=== PATIENT | female | born 1985 | race African-American/Black ===

== ENCOUNTER 2016-08-24 13:10 | Emergency (ER) | payer OTHER ==
[2016-08-24 13:35] VITALS: BP 120/73
[2016-08-24] MEDS ORDERED: NS 0.9% 1000 ML* 1,000 ML IV SCH (14:00)
--- NOTE | 2016-08-24 14:25 | UC ---
Abdominal Pain Female HPI - HPI Summary HPI Summary: ABOUT 10 DAYS OF NAUSEA AND VOMITING. FEELS DEHYDRATED. IS ABOUT 7 WEEKS BY DATES. LOG MARKER GAVE HER RX FOR DICLEGIS QHS BUT COULD NOT SEE HER TODAY AND ADVISED SHE COME HERE. IS VOMITING AFTER ALMOST EVERY ATTEMPT AT ORAL INTAKE. - History of Current Complaint Chief Complaint: UC Stated Complaint: VOMITTING AND Time Seen by Provider: 08/24/16 13:30 Hx Obtained From: Patient Hx Last Menstrual Period: 07/03/16 Onset/Duration: Gradual Onset, Lasting Days, Still Present Timing: Intermittent Episodes Lasting: Severity Initially: Moderate Severity Currently: Moderate Pain Intensity: 0 Pain Scale Used: 0-10 Numeric Aggravating Factor(s): Food Alleviating Factor(s): Nothing Associated Signs and Symptoms: Positive: Nausea, Vomiting Allergies/Adverse Reactions: Allergies Allergy/AdvReac Type Severity Reaction Status Date / Time No Known Allergies Allergy Verified 08/24/16 13:26 Home Medications: Home Medications Doxylamine/Pyridoxine(NF) [Diclegis (NF)] 20 mg PO BEDTIME 08/24/16 [History Confirmed 08/24/16] PMH/Surg Hx/FS Hx/Imm Hx Previously Healthy: Yes Endocrine History Of: Denies: Diabetes, Thyroid Disease Cardiovascular History Of: Denies: Cardiac Disorders, Hypertension Respiratory History Of: Denies: COPD, Asthma GI/ History Of: Denies: Ulcer Neurological History Of: Reports: Migraine - Surgical History Surgical History: Yes Surgery Procedure, Year, and Place: left ovary removed 1987 - Family History Known Family History: Positive: Hypertension - Social History Alcohol Use: None Substance Use Type: None Smoking Status (MU): Never Smoked Tobacco - Immunization History Most Recent Influenza Vaccination: fall 2015 Most Recent Tetanus Shot: unk Most Recent Pneumonia Vaccination: never Review of Systems Constitutional: Negative Respiratory: Negative Cardiovascular: Negative Gastrointestinal: Vomiting, Other - NAUSEA All Other Systems Reviewed And Are Negative: Yes Physical Exam Triage Information Reviewed: Yes Appearance: Well-Appearing, No Pain Distress, Well-Nourished Vital Signs: Initial Vital Signs Temp 99.8 F 08/24/16 13:28 Pulse 74 08/24/16 13:28 Resp 16 08/24/16 13:28 BP 120/73 08/24/16 13:28 Pulse Ox 99 08/24/16 13:28 Vital Signs Reviewed: Yes Eyes: Positive: Conjunctiva Clear ENT: Positive: Hearing grossly normal Neck: Positive: Supple Respiratory Exam: Normal Cardiovascular Exam: Normal Abdomen Description: Positive: Nontender, Soft. Negative: CVA Tenderness (R), CVA Tenderness (L), Distended, Guarding Bowel Sounds: Positive: Present Musculoskeletal: Positive: No Edema Neurological: Positive: Alert Psychological: Positive: Age Appropriate Behavior Skin: Negative: rashes Abd Pain Female Course/Dx - Course Course Of Treatment: 1 L NS STARTED. CARE TRANSFERRED TO DR. PREM BRUSH AT 2: 45PM - Differential Dx/Diagnosis Provider Diagnoses: NAUSEA AND VOMITING IN 1ST TRIMESTER Discharge - Discharge Plan Condition: Stable Disposition: OTHER Discharge Disposition Comment: TRANSFER CARE TO DR. PREM BRUSH Referrals: Dolores Gu MD [Primary Care Provider] -
--- NOTE | 2016-09-03 15:46 | UC ---
I, Daisy Nuñez, scribed for Vonda Rivera MD on 08/24/16 at 1536 . Progress - Progress Note Progress Note: Sign out from Dr. Mao: Pt is 7 weeks by date. C/c vomiting. OBGYN prescribed Diclegis for this evening. Pt spoke to OBGYN, who referred her to E. Will send urine for culture, gave pt fluids. If she feels OK after fluids, OK to discharge. 1528: Re-eval #1 Checking on pt post fluids. Pt states feeling a little better, wants to try eating. No new complaints. Vitals looked OK. Will check her blood sugar, then D/C. Follow up with OBGYN on 09/13/2016. Pt voiced understanding. The documentation as recorded by the shakiraibJoaquin watkins SooYoung accurately reflects the service I personally performed and the decisions made by me, Vonda Rivera MD.
== END 2016-08-24 16:59 ==
LOC: UCEAST 13:10
DX: O26.891 Other specified pregnancy related conditions, first trimester (principal); Z3A.01 Less than 8 weeks gestation of pregnancy; R11.2 Nausea with vomiting, unspecified
CPT/HCPCS: 81002; 81025; 87086; 96360; 99211; G0463

== ENCOUNTER 2016-09-04 18:25 | Emergency (ER) | payer OTHER ==
[2016-09-04] MEDS ORDERED: Ondansetron INJ* 2 MG/ML VIAL IV ONE (20:03)
[2016-09-04] MEDS ORDERED: NS 0.9% 1000 ML* 1,000 ML IV ONE (20:03)
[2016-09-04 20:52] LABS: Hematocrit 41 % (35-47); Mean Corpuscular HGB Conc 34 g/dl (31-36); Mean Corpuscular Hemoglobin 27 pg (27-31); Mean Corpuscular Volume 77 fL (80-97); Mean Platelet Volume 8 um3 (7.4-10.4); Red Blood Count 5.26 10^6/ul (4.0-5.4); Red Cell Distribution Width 17 % (10.5-15); White Blood Count 15.5 10^3/ul (3.5-10.8)
--- NOTE | 2016-09-04 21:21 | RAD ---
Indication: status post right oophorectomy and threatened . Real-time sonography of the was performed. There is a single intrauterine gestation noted. movement is noted.. heart activity measures 183 bpm. The mean crown-rump length is 1.5 cm corresponding to gestational age of 8 weeks 0 days. The mean gestational sac size is 3.5 cm corresponding to gestational age of 8 weeks 4 days. The estimated date of delivery is April 12, 2017. The left ovary measures 5.3 x 4.0 x 4.5 cm with 3.4 cm cyst in the left ovary. IMPRESSION: There is a single intrauterine gestation with a gestational age of 8 weeks 4 days. Estimated date of delivery is April 12, 2017. heart activity is noted. Patient is status post right oophorectomy. Left ovary demonstrates a cyst measuring 3.4 cm.
[2016-09-04 21:35] LABS: Calcium 9.5 mg/dL (8.6-10.3); EGFR African American 171.7 (>60); EGFR Non-African American 133.5 (>60); Globulin 2.9 g/dL (2-4); Potassium 3.7 mmol/L (3.5-5.0); Total Bilirubin 0.8 mg/dL (0.2-1.0); Total Protein 6.9 g/dL (6.4-8.9)
--- NOTE | 2016-09-04 22:04 | RAD ---
Indication: Leg edema. Duplex Doppler sonography of the deep venous system of the left lower extremity deep venous system was performed. Bilaterally the common femoral veins appear patent and compressible. Left proximal greater saphenous vein, proximal deep femoral vein, femoral vein, popliteal vein, posterior tibial veins and peroneal veins appear patent and compressible. Venous stasis is noted throughout the deep venous system. IMPRESSION: NO EVIDENCE OF DEEP VENOUS THROMBOSIS IS IDENTIFIED.
[2016-09-04] MEDS ORDERED: Acetaminophen TAB* 325 MG PO ONE (22:05)
--- NOTE | 2016-09-04 22:16 | RAD ---
Indication: Right lower quadrant pain. Graded compression sonography of the right lower quadrant was performed. There is no evidence of a abnormal or normal appendix identified. IMPRESSION: Appendix not visualized.
[2016-09-04 22:57] LABS: Urine Bacteria Absent (Absent); Urine Bilirubin Negative (Negative); Urine Glucose Negative (Negative); Urine Nitrite Negative (Negative)
[2016-09-04] MEDS ORDERED: Nitrofurantoin Macrocrystals* 50 MG CAP PO ONE (23:11)
[2016-09-05 00:31] VITALS: BP 118/70
--- NOTE | 2016-09-05 00:44 | ED ---
jyoti Castaneda Timothy, scribed for Earle Caceres on 09/04/16 at 2003 . Abdominal Pain/Female - HPI Summary HPI Summary: Marya Akers is a 31 yo female presenting to [facility] with 8/10 RLQ abd pain and mid abd pain for the past 2.5 weeks. She also c/o 1x vomiting, but denies any vaginal bleeding. She is 8 weeks . She states her entire left leg is in pain and is feeling numb. She saw a chiropractor earlier today for the leg pain, but the numbness is recent as of the past hour. Her MHx includes right oophorectomy in infancy due to the possibility of rupture. She had a miscarriage 08/2015. Her LNMP was 07/03/16, but she states she has not been normal since her daughter 3 years ago. - History of Current Complaint Chief Complaint: EDAbdPain Stated Complaint: 9 WKS PREG/ABD PAIN/LOWER BACK PAIN Time Seen by Provider: 09/04/16 19:57 Hx Obtained From: Patient Hx Last Menstrual Period: 07/03/16 Onset/Duration: Gradual Onset, Lasting Weeks, Still Present Timing: Constant Severity Initially: Moderate Severity Currently: Moderate Pain Intensity: 8 Pain Scale Used: 0-10 Numeric Location: Discrete At: RLQ Character: Cramping Aggravating Factor(s): Nothing Allergies/Adverse Reactions: Allergies Allergy/AdvReac Type Severity Reaction Status Date / Time No Known Allergies Allergy Verified 09/04/16 18:36 PMH/Surg Hx/FS Hx/Imm Hx Endocrine/Hematology History: Denies: Hx Diabetes, Hx Thyroid Disease Cardiovascular History: Denies: Hx Hypertension Respiratory History: Denies: Hx Asthma, Hx Chronic Obstructive Pulmonary Disease (COPD) GI History: Denies: Hx Ulcer Neurological History: Reports: Hx Migraine Denies: Other Neuro Impairments/Disorders - Surgical History Surgery Procedure, Year, and Place: left ovary removed 1987 Hx Anesthesia Reactions: No Infectious Disease History: No Infectious Disease History: Denies: Hx Clostridium Difficile, Hx Hepatitis, Hx Human Immunodeficiency Virus (HIV), Hx of Known/Suspected MRSA, Hx Shingles, Hx Tuberculosis, Hx Known/ Suspected VRE, Hx Known/Suspected VRSA, History Other Infectious Disease, Traveled Outside the [place] in Last 30 Days - Family History Known Family History: Positive: Hypertension, Other - CA - Social History Alcohol Use: None Hx Substance Use: No Substance Use Type: Reports: None Smoking Status (MU): Never Smoked Tobacco Review of Systems Constitutional: Negative Eyes: Negative ENT: Negative Cardiovascular: Negative Respiratory: Negative Positive: Abdominal Pain, Vomiting, Nausea Genitourinary: Negative Musculoskeletal: Other - left leg pain Positive: Numbness - left leg numbness Psychological: Normal All Other Systems Reviewed And Are Negative: Yes Physical Exam Triage Information Reviewed: Yes Vital Signs On Initial Exam: Initial Vitals Temp Pulse Resp BP Pulse Ox 99.4 F 111 20 118/76 99 09/04/16 18:36 09/04/16 18:36 09/04/16 18:36 09/04/16 18:36 09/04/16 18:36 Vital Signs Reviewed: Yes Appearance: Positive: Well-Appearing, No Pain Distress Skin: Positive: Warm, Skin Color Reflects Adequate Perfusion, Dry Head/Face: Positive: Normal Head/Face Inspection Eyes: Positive: EOMI, YENNIFER ENT: Positive: Normal ENT inspection Neck: Positive: Supple, Nontender Respiratory/Lung Sounds: Positive: Clear to Auscultation, Breath Sounds Present Cardiovascular: Positive: RRR, Pulses are Symmetrical in both Upper and Lower Extremities Abdomen Description: Positive: Soft. Negative: Nontender - RLQ tenderness Bowel Sounds: Positive: Present Musculoskeletal: Positive: Strength/ROM Intact, Pain @ - left buttock area Neurological: Positive: Normal, Sensory/Motor Intact, Alert, Oriented to Person Place, Time Psychiatric: Positive: Normal Diagnostics - Vital Signs Vital Signs Temp Pulse Resp BP Pulse Ox 09/04/16 19:25 97.8 F 91 16 121/66 99 09/04/16 18:36 99.4 F 111 20 118/76 99 - Laboratory Result Diagrams: 09/04/16 20:35 09/04/16 20:35 Lab Statement: Any lab studies that have been ordered have been reviewed, and results considered in the medical decision making process. - Radiology Venous doppler Xray Interpretation: No Acute Changes - IMPRESSION: NO EVIDENCE OF DEEP VENOUS THROMBOSIS IS IDENTIFIED. Radiology Interpretation Completed By: Radiologist US abdomen Xray Interpretation: No Acute Changes - IMPRESSION: Appendix not visualized. Radiology Interpretation Completed By: Radiologist - Ultrasound No standard instances Ultrasound Interpretation: Positive (See Comments) - IMPRESSION: There is a single intrauterine gestation with a gestational age of 8 weeks 4 days. Estimated date of delivery is April 12, 2017. heart activity is noted. Patient is status post right oophorectomy. Left ovary demonstrates a cyst measuring 3.4 cm. Ultrasound Interpretation Completed By: Radiologist - Gestational US Re-Evaluation - Re-Evaluation First Eval Re-Evaluation Time: 23:07 Change: Improved Comment: Pt was informed of results of lab work and imaging studies. She is no longer tenderness in the RLQ. She is agreeable to being discharged. Abdominal Pain Fem Course/Dx - Course Course Of Treatment: Marya Akers is a 31 yo female presenting to [facility] with RLQ abd pain and vomiting for the past 3 weeks. After negative imaging results and review of her lab work, she will be discharged home with UTI and appropriate instructions. - Diagnoses Provider Diagnoses: UTI (urinary tract infection), IUP (intrauterine ), incidental, Left leg pain - Provider Notifications Discussed Care Of Patient With: 2321 - Dr. Simmons ([facility]) - Discussed Pt condition, recommends [facility] appt for follow up Discharge - Discharge Plan Condition: Stable Disposition: HOME Patient Education Materials: Urinary Tract Infection in Women (ED), Sciatica ( ED) Forms: *Work Release Referrals: Ferdinand Simmons MD [Medical Doctor] - 2 Days Additional Instructions: Please follow up with your [facility] physician regarding your visit to the emergency department. Dr. Simmons recommends that you call the [facility] office tomorrow morning and tell them you were seen in the ED today, so that they can get you in for an appointment sooner. Please return to the emergency department with any new or recurring symptoms. The documentation as recorded by the jyoti kang Timothy accurately reflects the service I personally performed and the decisions made by me, Earle Caceres.
== END 2016-09-05 00:30 | disposition home or self-care (01) ==
LOC: ED 18:25
DX: O26.891 Other specified pregnancy related conditions, first trimester (principal); R10.31 Right lower quadrant pain; N39.0 Urinary tract infection, site not specified; Z3A.08 8 weeks gestation of pregnancy
CPT/HCPCS: 36415; 76705; 76801; 80053; 81003; 81015; 83690; 84702; 85025; 86850; 86900; 86901; 87086; 96374; 99284; A9270-GY; J2405

== ENCOUNTER 2016-09-06 13:22 | Emergency (ER) | payer OTHER ==
[2016-09-06 13:59] VITALS: BP 113/56
--- NOTE | 2016-09-06 15:14 | RAD ---
INDICATION: LEFT leg pain and edema for 2 days with progression. COMPARISON: September 04, 2016 LEFT lower extremity venous ultrasound demonstrating venous stasis. TECHNIQUE: Christine scale, color Doppler, and spectral analysis of the deep veins of the LEFT lower extremity. Vessel compression, phasicity, and augmentation assessed. REPORT: There is gross occlusive DVT at the LEFT common iliac vein, common femoral vein, saphenous femoral junction segment of the saphenous vein, profunda femoral vein. There is nonocclusive thrombosis of the proximal segment of the LEFT femoral vein. While grossly patent the mid and distal segments of the femoral vein as well as the popliteal vein and paired posterior tibial and peroneal calf veins demonstrate stasis with nonphasic venous flow. Patency of the contralateral common femoral vein documented. IMPRESSION: Extensive LEFT lower extremity DVT as described extending as far proximal as the LEFT common iliac vein.
--- NOTE | 2016-09-06 18:15 | UC ---
Ramiro Castaneda Adam, scribed for Leda Tobias DO on 09/06/16 at 1506 . Lower Extremity/Ankle HPI - HPI Summary HPI Summary: Pt is a 31 year old female presenting with pain in her left calf and upper thigh. She states that she developed pain in her back and LLE 4 days ago but her back felt better after going to the chiropractor. 3 days ago the left leg pain grew worse and she has developed swelling there as well. The pain is currently 9/10. It is worse with ambulation. She also c/o KONG and feeling alternatingly hot and cold. She reports N/V which she believes is d/t . She denies SOB, CP, cough, sore throat, and ear ache. Pt was seen at [facility] [place] [facility] ED on 09/04 (2 days ago) for the LLE pain as well as abdominal pain. Ultrasound results revealed cyst on left ovary and no DVT. Pt is 9 weeks and has an appt with Dr. Simmons ([facility]) next week. She denies any complications from her previous but she had a miscarriage 1 year ago. PMHx of migraines and left ovary removal in 1987. FMHx of DM, HTN, and CA. Negative tobacco use. - History of Current Complaint Chief Complaint: UCLowerExtremity Stated Complaint: LEG PAIN Time Seen by Provider: 09/06/16 14:50 Hx Obtained From: Patient Hx Last Menstrual Period: 07/03/16 ?: Yes Onset/Duration: Gradual Onset, Lasting Days, Still Present Severity Initially: Mild Severity Currently: Moderate Pain Intensity: 9 Aggravating Factor(s): Ambulation Alleviating Factor(s): Nothing Able to Bear Weight: Yes - Allergies/Home Medications Allergies/Adverse Reactions: Allergies Allergy/AdvReac Type Severity Reaction Status Date / Time No Known Allergies Allergy Verified 09/06/16 13:48 Home Medications: Home Medications Acetaminophen TAB* [Tylenol TAB*] 1,000 mg PRN 09/06/16 [History] PMH/Surg Hx/FS Hx/Imm Hx Previously Healthy: Yes Endocrine History Of: Denies: Diabetes, Thyroid Disease Cardiovascular History Of: Denies: Cardiac Disorders, Hypertension Respiratory History Of: Denies: COPD, Asthma GI/ History Of: Denies: Ulcer Neurological History Of: Reports: Migraine - Surgical History Surgical History: Yes Surgery Procedure, Year, and Place: left ovary removed 1987 - Family History Known Family History: Positive: Hypertension, Diabetes, Other - CA - Social History Occupation: Employed Full-time Lives: With Family - Domestic partner male Alcohol Use: None Substance Use Type: None Smoking Status (MU): Never Smoked Tobacco - Immunization History Most Recent Influenza Vaccination: fall 2015 Most Recent Tetanus Shot: unk Most Recent Pneumonia Vaccination: never Review of Systems Constitutional: Negative Musculoskeletal: Calf Tenderness, Edema - LLE, Myalgia - LLE All Other Systems Reviewed And Are Negative: Yes Physical Exam Triage Information Reviewed: Yes Appearance: Well-Appearing, No Pain Distress, Well-Nourished Vital Signs: Initial Vital Signs Temp 98.2 F 09/06/16 13:50 Pulse 105 09/06/16 13:50 Resp 18 09/06/16 13:50 BP 113/56 09/06/16 13:50 Pulse Ox 100 09/06/16 13:50 Eyes: Positive: Conjunctiva Clear. Negative: Discharge ENT: Positive: Hearing grossly normal. Negative: Muffled/hoarse voice Neck exam: Normal Neck: Positive: Supple Respiratory: Positive: Lungs clear, Normal breath sounds, No respiratory distress, No accessory muscle use Cardiovascular: Positive: RRR, No Murmur Musculoskeletal: Positive: Edema @ - entire left le Neurological: Positive: Alert, Muscle Tone Normal Psychological Exam: Normal Psychological: Positive: Age Appropriate Behavior Skin Exam: Normal Skin: Positive: Other - Warm, dry, normal color except for left LE - diffusely warm to touch with red discoloration Diagnostics - Laboratory Diagnostic Studies Completed/Ordered: VENOUS DOPPLER STUDY - IMPRESSION: Extensive LEFT lower extremity DVT as described extending as far proximal as. the LEFT common iliac vein. Lower Extremity Course/Dx - Course Course Of Treatment: Patient found to have extensive DVT extending into the proximal left common iliac artery. She is also found to be tachycardic. No evidence of DVT 2 days ago. Given the patient's tachycardia, further evaluation to rule out PE seems warranted. - Differential Dx/Diagnosis Differential Diagnosis/HQI/PQRI: Cellulitis, DVT, Phlebitis, Sprain, Other - PE Provider Diagnoses: DVT, Discharge - Discharge Plan Condition: Stable Disposition: [facility] Referrals: Kym Sullivan NP [Primary Care Provider] - The documentation as recorded by the scribeRamiro Adam accurately reflects the service I personally performed and the decisions made by me, Leda Tobias DO.
== END 2016-09-06 15:52 | disposition short-term general hospital (02) ==
LOC: UCEAST 13:22
DX: O22.31 Deep phlebothrombosis in pregnancy, first trimester (principal); I82.422 Acute embolism and thrombosis of left iliac vein; Z3A.09 9 weeks gestation of pregnancy
CPT/HCPCS: 99213; G0463

== ENCOUNTER 2016-09-06 16:09 | Emergency (ER) | payer OTHER ==
--- NOTE | 2016-09-06 16:37 | CONSULT ---
Consultation - Reason for Consultation Reason for Consultation: DVT in Ordering Provider: Hua Alvarenga Chief Complaint: left leg pain History of Present Illness: 31 yo F at 8 weeks gestation presenting with an extensive left lower extremity DVT. Reema was walking in [employer] on Saturday and noticed pain in her left leg. On Saturday she developed pain and swelling and on Saturday came to the ER. She had a left LE venous doppler which showed stasis but no clot and was diagnosed with a muscle strain. US at that time confirmed an intrauterine at 8 weeks. The pain and swelling continued and so she went to urgent care today. repeat doppler showed an extensive clot in her left leg and she was brought in to the ER by ambulance. She denies any chest pain or SOB. She has had one very early miscarriage. She has no family history of blood clots. She does not smoke and is not on OCPs. She is not obese and had no inciting traumatic events nor any long car rides. Allergies/Medications Medication: none Allergies/Adverse Reactions: Allergies Allergy/AdvReac Type Severity Reaction Status Date / Time No Known Allergies Allergy Verified 09/06/16 13:48 History - Past Medical History Other History: right oophorectomy at for cystic lesions-benign - Family History Other Family History: mother pancreatic cancer. father prostate CA - Social History Hx Alcohol Use: No Hx Tobacco Use: No Marital Status: Life Partner Review of Systems - Review of Systems Constitutional Symptoms: Positive: Weight Gain - Dermatology: Positive: Normal HEENT: Positive: Normal Eyes: Positive: Normal Thyroid: Positive: Normal Pulmonary: Positive: Normal Cardiology: Positive: Normal Gastroenterology: Positive: Nausea, Anorexia Genital - Urinary: Positive: Normal Musculoskeletal: Positive: Other - left leg pain and numbness Endocrinology: Positive: Normal Neurology: Positive: Normal Psychiatry: Positive: Normal Physical Exam - Physical Exam Physical Examination: Vital Signs Temp Pulse Resp BP Pulse Ox 98.7 F 103 18 121/68 97 09/06/16 16:22 09/06/16 16:22 09/06/16 16:22 09/06/16 16:22 09/06/16 16:22 sitting in bed clearly uncomfortable perr eomi op moist CTA bl s1 s2 nl soft nt +bs mild swelling, erythema and tenderness of left leg A+O x 3, nonfocal neurological exam Results - Radiology Radiology Results: left venous doppler: personally reviewed with Dr. Richards. Extensive clot clearly not present on exam 2 days ago where stasis was present Assessment and Plan Impression: 31 yo F at 8 weeks gestation with a spontaneous left lower extremity DVT. We discussed this diagnosis at length. At this point she will require anticoagulation through out her . We discussed that the only safe option is heparin or lovenox. At this point I would start with lovenox 1.5 mg/ kg/day. We can discuss switching to BID heparin at 36 weeks gestation. She will also require anticoagulation for 6 weeks, with lovenox if breast feeding or xeralto if not. In terms of a hypercoag work up, it does make sense to check factor V leiden and prothrombin gene mutation at her next office visit and to complete the work up when she is no longer nor taking anticoagulation. This will not effect her management at present but will help to inform future risk and familial risk. I have also advised that she wear a thigh high compression stocking if possible to 30-40 mmHg if she can tolerate during her . I will see her in my office on September 20 at 1 pm.
[2016-09-06] MEDS ORDERED: Enoxaparin(*) 100 MG/ML SYR SUBCUT ONE (16:51)
[2016-09-06] MEDS ORDERED: oxyCODONE/Acetamin 5/325 MG* TAB PO ONE (16:51)
--- NOTE | 2016-09-06 17:23 | ED ---
Harjeet Castaneda Billy, scribed for Hua Alvarenga MD on 09/06/16 at 1651 . Lower Extremity - HPI Summary HPI Summary: Patient is a 31 year-old female coming to [facility] presenting with constant LLE pain, severity 9/10. Patient states there is a known diagnosis of LLE DVT. Denies any CP or SOB. Denies any recent travel, but states that she will sit at her desk for approximately 4 hours a day. She was seen in the ED several days ago, where a LLE US was negative for DVT, but a repeat US today at [facility] was read as positive. Patient is also 9 weeks . - History of Current Complaint Chief Complaint: EDExtremityLower Stated Complaint: RULE OUT DVT Time Seen by Provider: 09/06/16 16:29 Hx Obtained From: Patient Hx Last Menstrual Period: 07/03/16 Onset of Pain: Days Severity Initially: Moderate Severity Currently: Moderate Pain Intensity: 9 Pain Scale Used: 0-10 Numeric Timing: Constant Location: Is Discrete @ - LLE Associated Signs And Symptoms: Positive: Swelling Aggravating Factor(s): Nothing Alleviating Factor(s): Nothing - Allergies/Home Medications Allergies/Adverse Reactions: Allergies Allergy/AdvReac Type Severity Reaction Status Date / Time No Known Allergies Allergy Verified 09/06/16 13:48 PMH/Surg Hx/FS Hx/Imm Hx Endocrine/Hematology History: Denies: Hx Diabetes, Hx Thyroid Disease Cardiovascular History: Denies: Hx Hypertension Respiratory History: Denies: Hx Asthma, Hx Chronic Obstructive Pulmonary Disease (COPD) GI History: Denies: Hx Ulcer Neurological History: Reports: Hx Migraine Denies: Other Neuro Impairments/Disorders - Surgical History Surgery Procedure, Year, and Place: left ovary removed 1987 Hx Anesthesia Reactions: No Infectious Disease History: No Infectious Disease History: Denies: Hx Clostridium Difficile, Hx Hepatitis, Hx Human Immunodeficiency Virus (HIV), Hx of Known/Suspected MRSA, Hx Shingles, Hx Tuberculosis, Hx Known/ Suspected VRE, Hx Known/Suspected VRSA, History Other Infectious Disease, Traveled Outside the [place] in Last 30 Days - Family History Known Family History: Positive: Hypertension, Other - [place] - Social History Alcohol Use: None Hx Substance Use: No Substance Use Type: Reports: None Smoking Status (MU): Never Smoked Tobacco Review of Systems Negative: Chest Pain Negative: Shortness Of Breath Positive: Myalgia - LLE, Edema - LLE All Other Systems Reviewed And Are Negative: Yes Physical Exam Triage Information Reviewed: Yes Vital Signs On Initial Exam: Initial Vitals Temp Pulse Resp BP Pulse Ox 98.7 F 103 18 121/68 97 09/06/16 16:22 09/06/16 16:22 09/06/16 16:22 09/06/16 16:22 09/06/16 16:22 Vital Signs Reviewed: Yes Appearance: Positive: Well-Appearing, No Pain Distress Skin: Positive: Warm, Skin Color Reflects Adequate Perfusion, Dry Head/Face: Positive: Normal Head/Face Inspection Eyes: Positive: EOMI, YENNIFER ENT: Positive: Normal ENT inspection Neck: Positive: Supple, Nontender Respiratory/Lung Sounds: Positive: Clear to Auscultation, Breath Sounds Present Cardiovascular: Positive: Tachycardia Abdomen Description: Positive: Nontender, Soft Musculoskeletal: Positive: Pain @ - LLE tenderness, Edema Left Neurological: Positive: Normal, Sensory/Motor Intact, Alert, Oriented to Person Place, Time Psychiatric: Positive: Normal, Affect/Mood Appropriate Diagnostics - Vital Signs Vital Signs Temp Pulse Resp BP Pulse Ox 09/06/16 16:22 98.7 F 103 18 121/68 97 - Laboratory Lab Statement: Any lab studies that have been ordered have been reviewed, and results considered in the medical decision making process. Lower Extremity Course/Dx - Course Assessment/Plan: DR RUTLEDGE SAW PATIENT IN ED. DISCHARE HOME STABLE. - Diagnoses Provider Diagnoses: DVT (deep vein thrombosis) in Discharge - Discharge Plan Condition: Stable Disposition: HOME Prescriptions: Enoxaparin(*) [Lovenox(*)] 100 mg SUBCUT Q24HR #14 syringe oxyCODONE/Acetamin 5/325 MG* [Percocet 5/325 TAB*] 1 tab PO Q4H PRN #20 tab MDD 6 PRN Reason: Pain Referrals: Kym Sullivan NP [Primary Care Provider] - Additional Instructions: FOLLOW UP WITH DR RUTLEDGE ON 09/20/16 AT 1PM FOR YOUR DVT. FOLLOW UP WITH YOUR OBGYN. RETURN TO THE EMERGENCY DEPARTMENT FOR ANY WORSENING OF YOUR CONDITION; CHEST PAIN, SHORTNESS OF BREATH, YOU FEEL ILL OR QUESTIONS OR CONCERNS. The documentation as recorded by the Harjeet kang Billy accurately reflects the service I personally performed and the decisions made by me, Alvarenga,Hua, MD.
[2016-09-06 17:42] VITALS: BP 120/70
== END 2016-09-06 17:40 | disposition home or self-care (01) ==
LOC: ED 16:09
DX: O22.31 Deep phlebothrombosis in pregnancy, first trimester (principal); Z3A.09 9 weeks gestation of pregnancy; M79.1 Myalgia; R60.0 Localized edema
CPT/HCPCS: 99223; 99282; A9270-GY; J1650

== ENCOUNTER 2016-09-08 09:07 | Emergency (ER) | payer OTHER ==
[2016-09-08] MEDS ORDERED: Metoclopramide TAB* 10 MG PO ONE (10:24)
[2016-09-08 10:40] LABS: Hematocrit 35 % (35-47); Mean Corpuscular HGB Conc 34 g/dl (31-36); Mean Corpuscular Hemoglobin 26 pg (27-31); Mean Corpuscular Volume 77 fL (80-97); Mean Platelet Volume 8 um3 (7.4-10.4); Red Blood Count 4.57 10^6/ul (4.0-5.4); Red Cell Distribution Width 17 % (10.5-15); White Blood Count 12.8 10^3/ul (3.5-10.8)
[2016-09-08] MEDS ORDERED: oxyCODONE/Acetamin 5/325 MG* TAB PO ONE (10:45)
[2016-09-08 10:51] LABS: Albumin 3.6 g/dL (3.2-5.2); BUN/Creatinine Ratio 15.9 (8-20); Calcium 9.2 mg/dL (8.6-10.3); EGFR African American 217.4 (>60); EGFR Non-African American 169.1 (>60); Globulin 3.3 g/dL (2-4); Potassium 3.2 mmol/L (3.5-5.0); Total Bilirubin 0.7 mg/dL (0.2-1.0); Total Protein 6.9 g/dL (6.4-8.9)
--- NOTE | 2016-09-08 11:04 | ED ---
Lower Extremity - HPI Summary HPI Summary: 31 F who is 9 weeks presents with worsening left leg pain from her DVT. She is also complaining of unchanged LLQ pain for the past week. She was seen here on and diagnosed with blood clot in left common illiac. She has been taking lovenox. She is suppose to follow up with dr amato in september. She states that the swelling of her leg has decreased but pain has increased likely due to being unable to keep percocet down due to nausea. She denies any diarrhea or constipation. She had a transvaginal u/s done and was told have left ovarian cyst which states pain has been same since diagnoses. She denies any vaginal bleeding or discharge. She had a UTI last time she was here and was placed on macrobid which she has been taking. She has no risk factors for DVT excpet for . She denies any chest pain, SOB, or palpitations to suggest PE. - History of Current Complaint Chief Complaint: EDExtremityLower Stated Complaint: 9WKS PREG/POSS BLOOD CLOT LT LEG Time Seen by Provider: 09/08/16 09:42 Hx Last Menstrual Period: 07/03/16 Pain Intensity: 10 - Allergies/Home Medications Allergies/Adverse Reactions: Allergies Allergy/AdvReac Type Severity Reaction Status Date / Time No Known Allergies Allergy Verified 09/06/16 13:48 PMH/Surg Hx/FS Hx/Imm Hx Endocrine/Hematology History: Denies: Hx Diabetes, Hx Thyroid Disease Cardiovascular History: Denies: Hx Hypertension Respiratory History: Denies: Hx Asthma, Hx Chronic Obstructive Pulmonary Disease (COPD) GI History: Denies: Hx Ulcer Neurological History: Reports: Hx Migraine Denies: Other Neuro Impairments/Disorders - Surgical History Surgery Procedure, Year, and Place: left ovary removed 1987 Hx Anesthesia Reactions: No Infectious Disease History: No Infectious Disease History: Denies: Hx Clostridium Difficile, Hx Hepatitis, Hx Human Immunodeficiency Virus (HIV), Hx of Known/Suspected MRSA, Hx Shingles, Hx Tuberculosis, Hx Known/ Suspected VRE, Hx Known/Suspected VRSA, History Other Infectious Disease, Traveled Outside the [place] in Last 30 Days - Family History Known Family History: Positive: Hypertension, Diabetes, Other - CA - Social History Alcohol Use: None Hx Substance Use: No Substance Use Type: Reports: None Hx Tobacco Use: No Smoking Status (MU): Never Smoked Tobacco Review of Systems Negative: Fever Negative: Palpitations, Chest Pain Negative: Shortness Of Breath Positive: Abdominal Pain - LLQ, Vomiting - intermittent, Nausea - intermittent. Negative: Diarrhea Negative: dysuria Positive: Myalgia - left leg pain, Edema - left leg All Other Systems Reviewed And Are Negative: Yes Physical Exam Triage Information Reviewed: Yes Vital Signs On Initial Exam: Initial Vitals Temp Pulse Resp BP Pulse Ox 98.4 F 103 20 107/64 100 09/08/16 09:10 09/08/16 09:10 09/08/16 09:10 09/08/16 09:10 09/08/16 09:10 Vital Signs Reviewed: Yes Appearance: Positive: Well-Appearing Skin: Positive: Warm, Dry Head/Face: Positive: Normal Head/Face Inspection Eyes: Positive: Normal, Conjunctiva Clear ENT: Positive: Normal ENT inspection, Pharynx normal, TMs normal Respiratory/Lung Sounds: Positive: Clear to Auscultation, Breath Sounds Present Cardiovascular: Positive: Normal, RRR Abdomen Description: Positive: Soft, Other: - mild tenderness in LLQ, no rebound tenderness Bowel Sounds: Positive: Present Musculoskeletal: Positive: Strength/ROM Intact - of left lower extremitiy, Edema Left - leg, Other - good pulses, capillary refill < 2 secs, - Marla Coma Scale Coma Scale Total: 15 Diagnostics - Vital Signs Vital Signs Temp Pulse Resp BP Pulse Ox 09/08/16 09:10 98.4 F 103 20 107/64 100 - Laboratory Lab Results: Lab Results 09/08/16 09/08/16 Range/Units 10:18 10:18 WBC 12.8 H (3.5-10.8) 10^3/ul RBC 4.57 (4.0-5.4) 10^6/ul Hgb 12.0 (12.0-16.0) g/dl Hct 35 (35-47) % MCV 77 L (80-97) fL MCH 26 L (27-31) pg MCHC 34 (31-36) g/dl RDW 17 H (10.5-15) % Plt Count 297 (150-450) 10^3/ul MPV 8 (7.4-10.4) um3 Neut % (Auto) 76.7 (38-83) % Lymph % (Auto) 13.5 L (25-47) % [place] % (Auto) 8.2 (1-9) % Eos % (Auto) 0.9 (0-6) % Baso % (Auto) 0.7 (0-2) % Absolute Neuts (auto) 9.8 H (1.5-7.7) 10^3/ul Absolute Lymphs (auto) 1.7 (1.0-4.8) 10^3/ul Absolute Monos (auto) 1.1 H (0-0.8) 10^3/ul Absolute Eos (auto) 0.1 (0-0.6) 10^3/ul Absolute Basos (auto) 0.1 (0-0.2) 10^3/ul Absolute Nucleated RBC 0.01 10^3/ul Nucleated RBC % 0.1 Sodium 134 (133-145) mmol/L Potassium 3.2 L (3.5-5.0) mmol/L Chloride 101 (101-111) mmol/L Carbon Dioxide 23 (22-32) mmol/L Anion Gap 10 (2-11) mmol/L BUN 7 (6-24) mg/dL Creatinine 0.44 L (0.51-0.95) mg/dL Est GFR ( Amer) 217.4 (>60) Est GFR (Non-Af Amer) 169.1 (>60) BUN/Creatinine Ratio 15.9 (8-20) Glucose 89 (70-100) mg/dL Calcium 9.2 (8.6-10.3) mg/dL Total Bilirubin 0.70 (0.2-1.0) mg/dL AST 17 (13-39) U/L ALT 9 (7-52) U/L Alkaline Phosphatase 58 (34-104) U/L Total Protein 6.9 (6.4-8.9) g/dL Albumin 3.6 (3.2-5.2) g/dL Globulin 3.3 (2-4) g/dL Albumin/Globulin Ratio 1.1 (1-3) Beta HCG, Quant Pending Result Diagrams: 09/08/16 10:18 09/08/16 10:18 Lab Statement: Any lab studies that have been ordered have been reviewed, and results considered in the medical decision making process. Lower Extremity Course/Dx - Course Course Of Treatment: 31 F presents with left leg pain for a week, diagnosed with DVT and started on lonvenox, pain increased but swelling decreased, u/s last week showed DVT at left common iliac so do not need to repeat u/s as only can do to lungs and not having any symptoms of PE at this time, abdominal pain remains unchanged since last u/s and showed cyst so likely cyst cause, offered transvaginal u/s and patient declined, labs: wbc less than last time, gave oral pain medication with reglan which patient tolerated, told patient if develops SOB or chest pain to return immediately, will have continue pain medication at home and added reglan to use as needed for nausea related to percocet, have continue antibiotic for UTI, have continue blood thinner and keep appointment with obgyn and dr amato, patient understands and agrees with plan - Diagnoses Differential Diagnosis/HQI/PQRI: Positive: DVT, Infection, Other - ovarian cyst , PE Provider Diagnoses: Left leg DVT, , Left ovarian cyst Discharge - Discharge Plan Condition: Stable Disposition: HOME Prescriptions: Metoclopramide TAB* [Reglan TAB*] 10 mg PO Q6H PRN #15 tab PRN Reason: Nausea Referrals: Kym Sullivan NP [Primary Care Provider] - Additional Instructions: Follow up with obgymeg and dr amato as scheduled Take Reglan before percocet as needed for nausea and pain Take Tylenol for pain every 6 hours, use narcotic for break through pain, increase fiber intake Return to ED immediately if develop palpitations, chest pain, or shortness of breath or any new or worsening symptoms
[2016-09-08 11:06] LABS: Urine Bacteria Absent (Absent); Urine Bilirubin 1+ (Negative); Urine Glucose Negative (Negative); Urine Nitrite Negative (Negative)
[2016-09-08 11:45] VITALS: BP 102/80
== END 2016-09-08 11:43 | disposition home or self-care (01) ==
LOC: ED 09:07
DX: O22.31 Deep phlebothrombosis in pregnancy, first trimester (principal); O34.81 Maternal care for other abnormalities of pelvic organs, first trimester; N83.202 Unspecified ovarian cyst, left side; R10.32 Left lower quadrant pain; R11.2 Nausea with vomiting, unspecified; I82.4Z2 Acute embolism and thrombosis of unspecified deep veins of left distal lower extremity; Z3A.09 9 weeks gestation of pregnancy
CPT/HCPCS: 36415; 80053; 81003; 81015; 84702; 85025; 85610; 85730; 87086; 99283; A9270-GY

== ENCOUNTER 2017-01-10 14:03 | Emergency (ER) | payer OTHER ==
[2017-01-10 14:08] VITALS: BP 126/68
[2017-01-10] MEDS ORDERED: Famotidine IV* 10 MG/ML 2 ML (20 mg) IV ONE (14:37)
[2017-01-10] MEDS ORDERED: diPHENhydraMINE IV* 50 MG/ML 1 ml VIAL (BENADRYL) IV ONE (14:37)
--- NOTE | 2017-01-10 15:56 | ED ---
Nai Castaneda Salem, scribed for Hua Alvarenga MD on 01/10/17 at 1425 . Allergic Reaction/Systemic - HPI Summary HPI Summary: Patient is a 31 y/o F who presents to the ED with an allergic reaction for the past 45 minutes. She states that she went to a taco truck and had a new shrimp taco with a spicy sauce. She denies any allergies to shrimp and states that she s had it many times. She reports hives and edema of bilateral knees and left shoulder. She denies throat tightness. Pt is 26 weeks . PMHx of blood clots. - History of Current Complaint Chief Complaint: EDAllergicReaction Time Seen by Provider: 01/10/17 14:17 Hx Obtained From: Patient, Family/[employer] Insurance Hx Last Menstrual Period: 07/03/16 Onset/Duration: Gradual Onset, Started minutes ago, Worse Since Timing: Constant Severity Initially: Moderate Severity Currently: Moderate Pain Intensity: 8 Pain Scale Used: 0-10 Numeric Location: Discrete @ - Bilat knees. Character: Swelling, Hives Aggravating Factor(s): Nothing Alleviating Factor(s): Nothing Associated Signs And Symptoms: Positive: Negative. Negative: Throat Tightening - Allergies/Home Medications Allergies/Adverse Reactions: Allergies Allergy/AdvReac Type Severity Reaction Status Date / Time No Known Allergies Allergy Verified 09/06/16 13:48 PMH/Surg Hx/FS Hx/Imm Hx Endocrine/Hematology History: Denies: Hx Diabetes, Hx Thyroid Disease Cardiovascular History: Denies: Hx Hypertension Respiratory History: Denies: Hx Asthma, Hx Chronic Obstructive Pulmonary Disease (COPD) GI History: Denies: Hx Ulcer Neurological History: Reports: Hx Migraine Denies: Other Neuro Impairments/Disorders - Surgical History Surgery Procedure, Year, and Place: left ovary removed 1987 Hx Anesthesia Reactions: No Infectious Disease History: No Infectious Disease History: Denies: Hx Clostridium Difficile, Hx Hepatitis, Hx Human Immunodeficiency Virus (HIV), Hx of Known/Suspected MRSA, Hx Shingles, Hx Tuberculosis, Hx Known/ Suspected VRE, Hx Known/Suspected VRSA, History Other Infectious Disease, Traveled Outside the [place] in Last 30 Days - Family History Known Family History: Positive: Hypertension, Diabetes, Other - CA - Social History Alcohol Use: None Hx Substance Use: No Substance Use Type: Reports: None Hx Tobacco Use: No Smoking Status (MU): Never Smoked Tobacco Review of Systems ENT: Other - No throat tightness. Positive: Edema - of bilat knees. Positive: Rash, Other - Hives of bilateral knees and left shoulder. All Other Systems Reviewed And Are Negative: Yes Physical Exam Triage Information Reviewed: Yes Vital Signs On Initial Exam: Initial Vitals Temp Pulse Resp BP Pulse Ox 97.6 F 82 18 126/88 98 01/10/17 14:04 01/10/17 14:04 01/10/17 14:04 01/10/17 14:04 01/10/17 14:04 Vital Signs Reviewed: Yes Appearance: Positive: Well-Appearing, No Pain Distress Skin: Positive: Warm, Skin Color Reflects Adequate Perfusion, Dry, Other - Hives around bilateral knees and indicates to LUE, as well. Head/Face: Positive: Normal Head/Face Inspection Eyes: Positive: EOMI, YENNIFER ENT: Positive: Other - Oral pharynx open. Neck: Positive: Supple, Nontender Respiratory/Lung Sounds: Positive: Clear to Auscultation, Breath Sounds Present , Other - No stridor. Cardiovascular: Positive: RRR Abdomen Description: Positive: Nontender, Soft, Other: - abd. Bowel Sounds: Positive: Present Musculoskeletal: Positive: Normal, Strength/ROM Intact Neurological: Positive: Normal, Sensory/Motor Intact, Alert, Oriented to Person Place, Time Psychiatric: Positive: Affect/Mood Appropriate Diagnostics - Vital Signs Vital Signs Temp Pulse Resp BP Pulse Ox 01/10/17 14:05 97.6 F 78 20 126/68 99 01/10/17 14:04 97.6 F 82 18 126/88 98 - Laboratory Lab Statement: Any lab studies that have been ordered have been reviewed, and results considered in the medical decision making process. Re-Evaluation - Re-Evaluation First Eval Re-Evaluation Time: 14:35 Comment: Discussed orders in relation to . Second Eval Re-Evaluation Time: 15:45 Comment: Discussed plan with pt and her family. Allergic Reaction Course/Dx - Course Course Of Treatment: NO CRITICAL CARE TIME. PATIENT IMPROVED IN ED WITH BENADRYL 25MG AND PEPCID 40MG IV. DISCHARGE HOME STABLE. - Diagnoses Provider Diagnoses: Allergic reaction Discharge - Discharge Plan Condition: Stable Disposition: HOME Prescriptions: Famotidine TAB* [Pepcid 20 MG TAB*] 20 mg PO BID PRN #10 tab PRN Reason: Allergy Symptoms diPHENhydraMINE PO* [Benadryl PO 25 MG TAB*] 25 mg PO Q6H PRN #15 tab PRN Reason: Allergy Symptoms Patient Education Materials: General Allergic Reaction (ED) Referrals: Kym Sullivan NP [Primary Care Provider] - Additional Instructions: FOLLOW UP WITH YOUR DOCTOR. TAKE BENADRYL 25MG EVERY 4 HOURS NEEDED. TAKE PEP RETURN TO THE EMERGENCY DEPARTMENT FOR ANY WORSENING OF YOUR CONDITION OR QUESTIONS OR CONCERNS. The documentation as recorded by the Nai kang Salem accurately reflects the service I personally performed and the decisions made by me, Hua Alvarenga MD.
== END 2017-01-10 16:12 | disposition home or self-care (01) ==
LOC: ED 14:03
DX: T78.40XA Allergy, unspecified, initial encounter (principal); R21 Rash and other nonspecific skin eruption; X58.XXXA Exposure to other specified factors, initial encounter
CPT/HCPCS: 96374; 96375; 99284; J1200

== ENCOUNTER 2017-01-10 22:15 | Emergency (ER) | payer OTHER ==
[2017-01-10 22:21] VITALS: BP 116/54
[2017-01-10] MEDS ORDERED: diPHENhydraMINE PO* 25 MG PO ONE (22:48)
[2017-01-10] MEDS ORDERED: predniSONE TAB* 20 MG PO ONE (22:48)
--- NOTE | 2017-01-10 23:51 | ED ---
Virgniia Castaneda Thomas, scribed for Luis Alfredo Mckeon MD on 01/10/17 at 2251 . Allergic Reaction/Systemic - HPI Summary HPI Summary: The pt is a 31 y/o F presenting to the ED c/o urticaria. The urticaria began earlier in the day and were localized to the leg and elbow, which prompted an ED visit earlier in the day. In the ED course of the visit earlier today, she received Benadryl IV which caused Sx to improve. She was discharged subsequently , and 3 hours subsequent to discharge the urticaria spread even after the pt took PO Benadryl. Per the pt, the urticaria is now "everywhere". She is 26 weeks . The pt called her OB, who referred her to the ED. The patient does not know what caused the allergic reaction. - History of Current Complaint Chief Complaint: EDAllergicReaction Time Seen by Provider: 01/10/17 22:42 Hx Obtained From: Patient Hx Last Menstrual Period: 07/03/16 Onset/Duration: Started hours ago, Worse Since - worse since discharge Timing: Constant Pain Intensity: 7 Pain Scale Used: 0-10 Numeric Character: Hives Aggravating Factor(s): Heat Alleviating Factor(s): Other - NEG: Benadryl - Related Hx Possible Reaction To: Unknown - Allergies/Home Medications Allergies/Adverse Reactions: Allergies Allergy/AdvReac Type Severity Reaction Status Date / Time No Known Allergies Allergy Verified 09/06/16 13:48 PMH/Surg Hx/FS Hx/Imm Hx Previously Healthy: No Endocrine/Hematology History: Denies: Hx Diabetes, Hx Thyroid Disease Cardiovascular History: Denies: Hx Hypertension Respiratory History: Denies: Hx Asthma, Hx Chronic Obstructive Pulmonary Disease (COPD) GI History: Denies: Hx Ulcer Neurological History: Reports: Hx Migraine Denies: Other Neuro Impairments/Disorders - Surgical History Surgery Procedure, Year, and Place: left ovary removed 1987 Hx Anesthesia Reactions: No Infectious Disease History: No Infectious Disease History: Denies: Hx Clostridium Difficile, Hx Hepatitis, Hx Human Immunodeficiency Virus (HIV), Hx of Known/Suspected MRSA, Hx Shingles, Hx Tuberculosis, Hx Known/ Suspected VRE, Hx Known/Suspected VRSA, History Other Infectious Disease, Traveled Outside the [place] in Last 30 Days - Family History Known Family History: Positive: Hypertension, Diabetes, Other - CA - Social History Alcohol Use: None Hx Substance Use: No Substance Use Type: Reports: None Hx Tobacco Use: No Smoking Status (MU): Never Smoked Tobacco Review of Systems Constitutional: Negative Eyes: Negative ENT: Negative Cardiovascular: Negative Respiratory: Negative Gastrointestinal: Negative Genitourinary: Negative Musculoskeletal: Negative Positive: Other - POS: urticaria, "everywhere" Neurological: Negative Psychological: Normal All Other Systems Reviewed And Are Negative: Yes Physical Exam Triage Information Reviewed: Yes Vital Signs On Initial Exam: Initial Vitals Temp Pulse Resp BP Pulse Ox 97.3 F 92 18 116/54 99 01/10/17 22:18 01/10/17 22:18 01/10/17 22:18 01/10/17 22:18 01/10/17 22:18 Vital Signs Reviewed: Yes Appearance: Positive: Well-Appearing, No Pain Distress Skin: Positive: Warm, Other - patchy urticarial rash both lower extremities Head/Face: Positive: Normal Head/Face Inspection Eyes: Positive: YENNIFER ENT: Positive: Hearing grossly normal Neck: Positive: Supple Respiratory/Lung Sounds: Positive: Clear to Auscultation, Breath Sounds Present Cardiovascular: Positive: RRR Abdomen Description: Positive: Other: - gravid Bowel Sounds: Positive: Present Musculoskeletal: Positive: Strength/ROM Intact Neurological: Positive: Alert, Oriented to Person Place, Time Diagnostics - Vital Signs Vital Signs Temp Pulse Resp BP Pulse Ox 01/10/17 22:18 97.3 F 92 18 116/54 99 - Laboratory Lab Statement: Any lab studies that have been ordered have been reviewed, and results considered in the medical decision making process. Re-Evaluation - Re-Evaluation First Eval Change: Improved Allergic Reaction Course/Dx - Diagnoses Provider Diagnoses: Allergic reaction Discharge - Discharge Plan Condition: Improved Disposition: HOME Prescriptions: predniSONE TAB* [Deltasone TAB*] 40 mg PO DAILY #8 tab Referrals: Kym Sullivan NP [Primary Care Provider] - 3 Days The documentation as recorded by the Virginia kang Thomas accurately reflects the service I personally performed and the decisions made by , Luis Alfredo Mckeon MD.
== END 2017-01-11 00:15 | disposition home or self-care (01) ==
LOC: ED 22:15
DX: L50.9 Urticaria, unspecified (principal); T78.40XA Allergy, unspecified, initial encounter; X58.XXXA Exposure to other specified factors, initial encounter
CPT/HCPCS: 99282; A9270-GY; J7512

== ENCOUNTER → 2017-02-04 07:16 | Emergency (ER) | payer OTHER ==
[~2017-02-04 07:16] MED LIST: Morphine INJ* 4 MG/ML 1 ML CARPUJECT IV ONE; NS 0.9% 1000 ML* 1,000 ML IV ONE; Ondansetron INJ* 2 MG/ML VIAL IV ONE
[2017-02-04 07:55] LABS: Hematocrit 33 % (35-47); Mean Corpuscular HGB Conc 33 g/dl (31-36); Mean Corpuscular Hemoglobin 26 pg (27-31); Mean Corpuscular Volume 77 fL (80-97); Mean Platelet Volume 8 um3 (7.4-10.4); Red Blood Count 4.31 10^6/ul (4.0-5.4); Red Cell Distribution Width 17 % (10.5-15); White Blood Count 10.9 10^3/ul (3.5-10.8)
[2017-02-04 08:13] LABS: Albumin 3.4 g/dL (3.2-5.2); BUN/Creatinine Ratio 12.7 (8-20); Calcium 8.8 mg/dL (8.6-10.3); EGFR African American 168.1 (>60); EGFR Non-African American 130.7 (>60); Globulin 3.1 g/dL (2-4); Potassium 3.7 mmol/L (3.5-5.0); Total Bilirubin 0.5 mg/dL (0.2-1.0); Total Protein 6.5 g/dL (6.4-8.9)
--- NOTE | 2017-02-04 09:33 | RAD ---
Indication: Right upper quadrant pain. Real-time sonography of the right upper quadrant was performed. The liver is normal in size. No focal lesions or intrahepatic ductal dilatation is noted. The gallbladder demonstrates no gallstones, pericholecystic fluid or wall thickening. The common duct measures 4 mm. The right kidney measures 11.0 x 5.5 x 5.0 cm with no hydronephrosis. The pancreas is suboptimally visualized. Aorta and inferior vena cava are limited in evaluation. IMPRESSION: No evidence of cholelithiasis or biliary duct dilatation is noted.
[2017-02-04 10:27] LABS: Urine Bacteria Absent (Absent); Urine Bilirubin Negative (Negative); Urine Glucose Negative (Negative); Urine Nitrite Negative (Negative)
--- NOTE | 2017-02-04 12:10 | RAD ---
Indication: Right lower quadrant pain. Real-time sonography of the right lower quadrant was performed utilizing a high frequency linear transducer. No evidence of tubular fluid-filled structure to suggest appendicitis is noted. IMPRESSION: No definite evidence of appendicitis is noted. Appendix is not visualized.
--- NOTE | 2017-02-04 12:21 | RAD ---
INDICATION: , lower, pain. COMPARISON: Comparison is made with a prior study from September 12, 2016. TECHNIQUE: Multiple real-time transabdominal images of the pelvis were obtained. FINDINGS: This exam demonstrates a single intrauterine in the cephalic presentation. cardiac activity and limb motion are noted. The heart rate was 136 beats per minute. The placenta was located posterior and is without significant focal abnormality. There is no placenta previa. The amniotic fluid volume appeared to be within normal limits. The cervix measured 3.7 cm in length. Biparietal diameter (cm): 8.0 32 weeks 3 days Head circumference (cm): 29.3 32 weeks 3 days Abdominal circumference (cm): 25.0 29 weeks 0 days Femur length (cm): 5.8 30 weeks 4 days The composite estimated gestational age was 31 weeks 1 day. The estimated gestational age by the oldest ultrasound study is 30 weeks 1 day. Therefore there has been appropriate interval growth. The estimated weight at this time is 1518 grams plus or minus 222 grams. The anatomy was not examined on this limited emergent study. In addition multiple images of the right adnexa were obtained in the region of the patient's pain. The ovary was not visualized. No free intraperitoneal fluid is seen. IMPRESSION: THERE IS A SINGLE INTRAUTERINE IN THE CEPHALIC PRESENTATION WITH A COMPOSITE ESTIMATED GESTATIONAL AGE OF 31 WEEKS 1 DAY DEMONSTRATING APPROPRIATE INTERVAL GROWTH.
[2017-02-04 12:50] LABS: C Reactive Protein 15.48 mg/L (< 5.00)
[2017-02-04 15:09] VITALS: BP 92/68
[2017-02-04 17:09] LABS: Erythrocyte Sed Rate 73 mm/Hr (0-14)
--- NOTE | 2017-02-05 10:08 | ED ---
Shanique Castaneda Auryana, scribed for Adi Gifford MD on 02/04/17 at 0735 . Abdominal Pain/Female - HPI Summary HPI Summary: 31 year old female presents to the ED with intermittent right sided abdominal pain starting at 03:00 AM. She reports that she woke this morning with what she believed may be labor contractions, took 2 doses of Tylenol, and returned to sleep. Patient woke at 06:30 with abdominal pain still present - "took her breath away". The pain does not radiate into the back. She also had nausea in route to ED and vomiting (x1 yesterday). She denies any diarrhea, blood in stool or any loss of fluids/blood. She is a patient of [facility] in [place], [place]. and is 30 weeks . Previous was full term without complications. PMHx is significant for left DVT in current ( Lovenox) and left oophorectomy (in childhood). - History of Current Complaint Chief Complaint: EDAbdPain Stated Complaint: RT SIDE ABD PAIN Time Seen by Provider: 02/04/17 07:23 Hx Obtained From: Patient Hx Last Menstrual Period: 07/03/16 ?: Yes Onset/Duration: Sudden Onset, Lasting Hours - starting at 03:00, Still Present, Worse Since - 06:30 Timing: Intermittent Episode Lasting Severity Initially: Severe Severity Currently: Severe Pain Intensity: 8 Pain Scale Used: 0-10 Numeric Location: Discrete At: RUQ Radiates: No Character: Other: - like labor contractions - "took breath away" Alleviating Factor(s): Nothing Associated Signs and Symptoms: Positive: Nausea - en route to ED, Vomiting - x1 yesterday, Other: - no loss of fluids or blood. Negative: Blood in Stool, Diarrhea Simlar Episode/Dx as:: no Allergies/Adverse Reactions: Allergies Allergy/AdvReac Type Severity Reaction Status Date / Time Shellac Allergy Rash Verified 02/04/17 07:29 PMH/Surg Hx/FS Hx/Imm Hx Endocrine/Hematology History: Denies: Hx Diabetes, Hx Thyroid Disease Cardiovascular History: Denies: Hx Hypertension Respiratory History: Denies: Hx Asthma, Hx Chronic Obstructive Pulmonary Disease (COPD) GI History: Denies: Hx Ulcer Neurological History: Reports: Hx Migraine Denies: Other Neuro Impairments/Disorders - Surgical History Surgery Procedure, Year, and Place: left ovary removed 1987 Hx Anesthesia Reactions: No Infectious Disease History: Denies: Hx Clostridium Difficile, Hx Hepatitis, Hx Human Immunodeficiency Virus (HIV), Hx of Known/Suspected MRSA, Hx Shingles, Hx Tuberculosis, Hx Known/ Suspected VRE, Hx Known/Suspected VRSA, History Other Infectious Disease, Traveled Outside the [place] in Last 30 Days - Family History Known Family History: Positive: Hypertension, Diabetes, Other - [place] - Social History Lives: With Family Alcohol Use: None Hx Substance Use: No Substance Use Type: Reports: None Hx Tobacco Use: No Smoking Status (MU): Never Smoked Tobacco Review of Systems Constitutional: Negative Negative: Fever, Chills Eyes: Negative Negative: Erythema ENT: Negative Negative: Sore Throat Cardiovascular: Negative Negative: Chest Pain Respiratory: Negative Negative: Shortness Of Breath, Cough Positive: Abdominal Pain - Right sided abdominal tenderness, Nausea, Other - no blood in stool . Negative: Vomiting, Diarrhea Genitourinary: Negative Positive: no symptoms reported. Negative: dysuria, hematuria Musculoskeletal: Negative Negative: Myalgia, Edema Skin: Negative Negative: Rash Neurological: Negative, Other - no dizziness Psychological: Normal All Other Systems Reviewed And Are Negative: Yes Physical Exam - Summary Physical Exam Summary: Constitutional: Well-developed, Well-nourished, Alert. (-) Distressed Skin: Warm, Dry HENT: Normocephalic; Atraumatic Eyes: Conjunctiva normal Neck: Musculoskeletal ROM normal neck. (-) JVD, (-) Stridor, (-) Tracheal deviation Cardio: Rhythm regular, rate normal, Heart sounds normal; Intact distal pulses; The pedal pulses are 2+ and symmetric. Radial pulses are 2+ and symmetric. (-) Murmur Pulmonary/Chest wall: Effort normal. (-) Respiratory distress, (-) Wheezes, (-) Rales Abd: Soft, RUQ Tenderness, (-) Distension, (-) Guarding, (-) Rebound Musculoskeletal: (-) Edema Lymph: (-) Cervical adenopathy Neuro: Alert, Oriented x3 Psych: Mood and affect Normal Triage Information Reviewed: Yes Vital Signs On Initial Exam: Initial Vitals Temp Pulse Resp BP Pulse Ox 97.2 F 82 18 100/43 97 02/04/17 07:17 02/04/17 07:17 02/04/17 07:17 02/04/17 07:17 02/04/17 07:17 Vital Signs Reviewed: Yes Diagnostics - Vital Signs Vital Signs Temp Pulse Resp BP Pulse Ox 02/04/17 07:17 97.2 F 82 18 100/43 97 - Laboratory Result Diagrams: 02/04/17 07:40 02/04/17 07:40 Lab Statement: Any lab studies that have been ordered have been reviewed, and results considered in the medical decision making process. - Additional Comments Diagnostic Additional Comments: US GALL BLADDER IMPRESSION: No evidence of cholelithiasis or biliary duct dilatation is noted. US PREG LIMITED IMPRESSION: THERE IS A SINGLE INTRAUTERINE IN THE CEPHALIC PRESENTATION WITH A COMPOSITE ESTIMATED GESTATIONAL AGE OF 31 WEEKS 1 DAY DEMONSTRATING APPROPRIATE INTERVAL GROWTH. US ABDOMEN LIMITED IMPRESSION: No definite evidence of appendicitis is noted. Appendix is not visualized. Re-Evaluation - Re-Evaluation First Eval Re-Evaluation Time: 08:21 - discussed labs and reassured patient that she is not carlos Comment: pain is localized to RUQ tenderness Second Eval Re-Evaluation Time: 09:41 - discussed results of gallbladder US Change: Improved Comment: pain is diminished but is still present in the RUQ and the RLQ Third Eval Re-Evaluation Time: 10:45 - patient still has pain. Change: Unchanged Fourth Eval Re-Evaluation Time: 13:59 - pain is improved Change: Improved Comment: reports chronic lower abdominal pain throughout the Fifth Eval Re-Evaluation Time: 14:56 - updated patient on plan to admit to labor and delivery - patient agrees with plan Abdominal Pain Fem Course/Dx - Course Course Of Treatment: 31 year old female presents to the ED with intermittent right sided abdominal pain starting at 03:00 AM. She reports that she woke this morning with what she believed may be labor contractions, took 2 doses of Tylenol, and returned to sleep. Patient woke at 06:30 with abdominal pain still present - "took her breath away". The pain does not radiate into the back. She also had nausea in route to ED and vomiting (x1 yesterday). She denies any diarrhea, blood in stool or any loss of fluids/blood. She is a patient of [facility] in [place], [place]. and is 30 weeks . Previous was full term without complications. PMHx is significant for left DVT in current (Lovenox) and partial oophorectomy (in childhood). In ED course, patient was given 2L of IV fluids, Zofran for nausea and morphine for pain. I discussed the patient with Dr. Mcnair who recommended admission to OB if the patient is calros. Dr. Mcnair (OB) (14:45) recommends that she be admitted to labor and delivery for further monitoring. Patient agrees with plan. Disposition discharge from ER to to labor and delivery. Gallbladder US is negative. Blood work shows WBC of 10.9, Hgb of 11.0, Hct of 33, glucose 83, lactic acid 1.3. Electrolytes and LFTs WNL. Blood type is A (+) with a negative antibody screen. UA is contaminated. US THERE IS A SINGLE INTRAUTERINE IN THE CEPHALIC PRESENTATION WITH A. COMPOSITE ESTIMATED GESTATIONAL AGE OF 31 WEEKS 1 DAY DEMONSTRATING APPROPRIATE INTERVAL. GROWTH. ABDOMINAL US - No definite evidence of appendicitis is noted. Appendix is not visualized. DDx: biliary colic, cholecystitis, pre-term labor. Dx: abdominal pain and . - Diagnoses Differential Diagnosis: Positive: Other - biliary colic, cholecystitis, pre- term labor Provider Diagnoses: Abdominal pain, Is Visit Related: Yes - possible pre-term labor - Provider Notifications Discussed Care Of Patient With: Mary Mcnair - discussed the case Time Discussed With Above Provider: 07:32 - if patient is carlos, recommends admission to OB unit Instructed by Provider To: Admit As Inpatient Discharge - Discharge Plan Condition: Stable Disposition: OTHER Discharge Disposition Comment: to labor and delivery. Patient Education Materials: Abdominal Pain in (ED), (ED) Referrals: Kym Sullivan NP [Primary Care Provider] - The documentation as recorded by the Shanique kang Auryana accurately reflects the service I personally performed and the decisions made by me, Adi Gifford MD.
== END ==
LOC: ED 07:16
DX: R10.31 Right lower quadrant pain (principal); R11.0 Nausea; Z34.90 Encounter for supervision of normal pregnancy, unspecified, unspecified trimester
CPT/HCPCS: 36415; 76705; 76815; 80053; 81003; 81015; 83605; 85027; 85652; 86140; 86850; 86900; 86901; 96374; 96375; 99282; J2270; J2405

== ENCOUNTER 2017-04-07 08:47 | Inpatient (IN) | payer OTHER ==
[2017-04-07 09:57] LABS: Hematocrit 34 % (35-47); Hemoglobin 11.4 g/dl (12.0-16.0); Mean Corpuscular HGB Conc 33 g/dl (31-36); Mean Corpuscular Hemoglobin 23 pg (27-31); Mean Platelet Volume 8 um3 (7.4-10.4); Red Blood Count 4.98 10^6/ul (4.0-5.4); Red Cell Distribution Width 19 % (10.5-15); White Blood Count 9.5 10^3/ul (3.5-10.8)
[2017-04-07 10:00] LABS: Comments Flag Yes
[2017-04-07] MEDS ORDERED: Oxytocin in LR* 20 UNITS/1,000 ML BAG IVPB SCH ×2 (10:00→17:00)
[2017-04-07 10:01] LABS: Mean Corpuscular Volume 69 fL (80-97)
[2017-04-07] MEDS ORDERED: OBEPIDURAL* 250 ML ONE (12:17)
[2017-04-07] MEDS ORDERED: EPHEDrine (Pressors)* 50 MG/ML VIAL IV PUSH PRN ×2 (14:25)
[2017-04-07] MEDS ORDERED: Sodium Citrate/Citric Acid* 15 ML UDC PO PRN (14:25)
[2017-04-07] MEDS ORDERED: Phenylephrine IV* 40 MCG/ML 10 ML SYRINGE IV PUSH PRN ×2 (14:25)
[2017-04-07] MEDS ORDERED: Famotidine TAB* 20 MG PO PRN (14:25)
[2017-04-07] MEDS ORDERED: OBEPIDURAL* 250 ML EPIDURAL SCH (15:00)
[2017-04-07] MEDS ORDERED: Glycerin ADULT SUPP PR PRN (16:56)
[2017-04-07] MEDS ORDERED: Lidocaine 1% MPF* 2 ML VIAL ONE (17:21)
[2017-04-07] MEDS ORDERED: Simethicone TAB* 80 MG TAB.CHEW PO SCH (17:30)
[2017-04-07] MEDS: Acetaminophen TAB* 325 MG PO PRN (18:27)
[2017-04-07] MEDS: Docusate CAP* 100 MG PO SCH (20:01)
[2017-04-07] MEDS: Witch Hazel PAD* JAR TOPICAL PRN (20:01)
[2017-04-07] MEDS: Enoxaparin(*) 40 MG/0.4 ML SYR SUBCUT SCH (22:41)
[2017-04-08] MEDS: Acetaminophen TAB* 325 MG PO PRN ×5 (00:40→23:10)
[2017-04-08 07:19] LABS: Hematocrit 29 % (35-47); Hemoglobin 9.9 g/dl (12.0-16.0); Mean Corpuscular HGB Conc 34 g/dl (31-36); Mean Corpuscular Hemoglobin 23 pg (27-31); Mean Platelet Volume 8 um3 (7.4-10.4); Red Blood Count 4.23 10^6/ul (4.0-5.4); Red Cell Distribution Width 18 % (10.5-15); White Blood Count 14.6 10^3/ul (3.5-10.8)
[2017-04-08 07:21] LABS: Comments Flag Yes; Mean Corpuscular Volume 69 fL (80-97)
[2017-04-08] MEDS: Witch Hazel PAD* JAR TOPICAL PRN (07:36)
[2017-04-08] MEDS: Dibucaine 1% 28.35 GM TUBE PR PRN (07:36)
[2017-04-08] MEDS ORDERED: Influenza VAC *QUAD* 2017-18* 0.5 ML SYRINGE IM ONE (09:00)
[2017-04-08] MEDS: Docusate CAP* 100 MG PO SCH ×3 (09:19→23:06)
[2017-04-08] MEDS: Ferrous Gluconate TAB* 324 MG TAB PO SCH ×2 (09:19→23:06)
[2017-04-08] MEDS: Ibuprofen TAB* 600 MG PO PRN ×2 (12:05→19:25)
[2017-04-08] MEDS: Famotidine TAB* 20 MG PO SCH (19:25)
[2017-04-08] MEDS: Enoxaparin(*) 40 MG/0.4 ML SYR SUBCUT SCH (23:06)
[2017-04-09] MEDS: Ibuprofen TAB* 600 MG PO PRN (04:10)
[2017-04-09] MEDS: Ferrous Gluconate TAB* 324 MG TAB PO SCH (08:41)
[2017-04-09] MEDS: Docusate CAP* 100 MG PO SCH (08:41)
[2017-04-09] MEDS: Famotidine TAB* 20 MG PO SCH (08:41)
[2017-04-09] MEDS: Acetaminophen TAB* 325 MG PO PRN (08:41)
[2017-04-09] MEDS: Dibucaine 1% 28.35 GM TUBE PR PRN (08:42)
[2017-04-09 09:28] VITALS: BP 100/88
== END 2017-04-09 11:00 | disposition home or self-care (01) | DRG 560 ==
LOC: MCHOBOUT 08:47 → MCHOB 09:28
PROVIDERS: ADMIT Obstetrics & Gynecology; ATTEND Obstetrics & Gynecology
PROC: 10E0XZZ Delivery of Products of Conception, External Approach (ICD-10-PCS; principal; 2017-04-07)
PROC: 10907ZC Drainage of Amniotic Fluid, Therapeutic from Products of Conception, Via Natural or Artificial Opening (ICD-10-PCS; 2017-04-07)
PROC: 0W8NXZZ Division of Female Perineum, External Approach (ICD-10-PCS; 2017-04-07)
DX: O75.89 Other specified complications of labor and delivery (principal); D64.9 Anemia, unspecified; O90.81 Anemia of the puerperium; Z3A.39 39 weeks gestation of pregnancy; Z37.0 Single live birth; Z86.718 Personal history of other venous thrombosis and embolism
CPT/HCPCS: 36415; 85025; 85610; 85730; 86850; 86900; 86901; 90686; A9270-GY; J1650

== ENCOUNTER 2017-04-12 17:49 | Observation (INO) | payer OTHER ==
[2017-04-12] MEDS ORDERED: NS 0.9% 1000 ML* 1,000 ML IV SCH ×2 (20:00→23:45)
--- NOTE | 2017-04-12 20:51 | RAD ---
INDICATION: Left arm and leg numbness. COMPARISON: There are no prior studies available for comparison. TECHNIQUE: Sagittal T1, axial T1, T2, susceptibility, FLAIR and diffusion weighted images were obtained. The patient was unable to tolerate the standard anterior head coil limiting the exam. FINDINGS: The ventricles, cisterns and sulci appear to be within normal limits. No significant focal abnormality or mass effect is seen. No areas of restricted diffusion are present. There is no evidence for infarct or hemorrhage. The visualized portion of the paranasal sinuses and mastoid air cells appear clear. IMPRESSION: LIMITED STUDY, NO EVIDENCE FOR ACUTE FINDING.
[2017-04-12 21:28] LABS: Hematocrit 33 % (35-47); Hemoglobin 10.6 g/dl (12.0-16.0); Mean Corpuscular HGB Conc 32 g/dl (31-36); Mean Corpuscular Hemoglobin 23 pg (27-31); Mean Platelet Volume 7 um3 (7.4-10.4); Red Cell Distribution Width 19 % (10.5-15); White Blood Count 13.8 10^3/ul (3.5-10.8)
[2017-04-12 21:38] LABS: Comments Flag Yes
[2017-04-12 21:39] LABS: Mean Corpuscular Volume 71 fL (80-97)
[2017-04-12 21:43] LABS: ALT 14 U/L (7-52); Albumin 3.4 g/dL (3.2-5.2); Alkaline Phosphatase 96 U/L (34-104); BUN/Creatinine Ratio 18.2 (8-20); Blood Urea Nitrogen 10 mg/dL (6-24); C Reactive Protein 68.93 mg/L (< 5.00); CO2 Carbon Dioxide 22 mmol/L (22-32); Calcium 8.7 mg/dL (8.6-10.3); Chloride 106 mmol/L (101-111); EGFR African American 168.1 (>60); EGFR Non-African American 130.7 (>60); Globulin 3.4 g/dL (2-4); Glucose 87 mg/dL (70-100); Magnesium 2.1 mg/dL (1.9-2.7); Sodium 137 mmol/L (133-145); Total Protein 6.8 g/dL (6.4-8.9)
[2017-04-12 21:45] LABS: Anion Gap 9 mmol/L (2-11)
[2017-04-12 22:09] LABS: TSH (Thyroid Stimulating Horm) 1.08 mcIU/mL (0.34-5.60)
[2017-04-12] MEDS ORDERED: CMCS:Melatonin (NF) 3 MG TAB PO PRN (23:32)
[2017-04-12] MEDS ORDERED: Acetaminophen TAB* 325 MG PO PRN (23:32)
[2017-04-13] MEDS ORDERED: Enoxaparin(*) 40 MG/0.4 ML SYR SUBCUT ONE (00:30)
[2017-04-13] MEDS ORDERED: Enoxaparin(*) 40 MG/0.4 ML SYR SUBCUT SCH ×2 (00:30→23:00)
--- NOTE | 2017-04-13 00:48 | CONS ---
CONSULTATION REPORT: DATE OF CONSULT/DICTATION: 04/12/17 PATIENT OF: Dr. Alvarenga, Dr. Vasques, and Dr. Simmons. HISTORY OF PRESENT ILLNESS: This is a 31-year-old woman I am asked to evaluate for her left-sided numbness. She has been in good general health other than at about 8 weeks of developing a large DVT in her left leg and she has been on anticoagulation since then, currently on Lovenox. She also has a past history of migraine headache with photophobia and occasional nausea, but no focal neurological symptoms with the migraine including no numbness. There is no family history for blood clots or stroke. Following delivery on Saturday, she had numbness in both legs. She is not sure of the exact sequence, but on Saturday she noted a clear difference that her right leg did not seem numb at all yet there was numbness including the foot entire leg to the groin on the left side. She was not sure whether her numbness had cleared on Saturday or whether the right leg had just gotten better and the difference was what noticed. There are no symptoms in the left arm at that time. On , she noticed some numbness in her left arm, but it was not in the hand, it was in the upper arm area. Today, the numbness has spread to the hand and to the shoulder area and she came in because of these symptoms. Since being in the ER , she has now told me that her left side of her face around her left lips and cheek area is numb for the first time. She said she is not sure it is numb, but she brought it up spontaneously and said that she thinks it is numb. She has had no significant major headache during this time. Yesterday, she had a nondescript mild frontal headache without any nausea, photophobia, or other symptoms. This is different than prior migraines, but she has had some mild headaches in the past as well. She has had no weakness, no walking problems. No visual symptoms. PAST MEDICAL HISTORY: Significant for deep vein thrombosis and her migraine headaches as discussed. She is status post right oophorectomy in 1987, wisdom teeth removal. She is 5 and para 2 and her is healthy and she has a healthy toddler. She lives at home. She has no known allergies and she does not smoke, drink or use drugs. MEDICATIONS: Include: 1. Lovenox 40 mg subcu q.24 hours. 2. Colace 100 mg b.i.d. 3. Zantac 150 b.i.d. REVIEW OF SYSTEMS: Negative in all 14 spheres, other than in the HPI. PHYSICAL EXAM: Temperature 97.5, pulse 106, respirations 18, blood pressure 116 /73. She is alert and oriented with normal speech and comprehension. Cranial Nerves II through XII were intact other than some slight subjective numbness to light touch in the left cheek by her left lips. Facies was symmetric. Fundi showed normal discs. Motor exam revealed normal tone and strength. Gait was tested in the room, it was normal. Romberg was negative. She could stand on either leg with good power and she could stand on her heels and toes. Finger-to - nose was normal. There was no pronator drift and fine motor was intact bilaterally. Sensation was decreased in her left forearm and arm, but not shoulder on the left subjectively. She at times thought the touch on her left leg was same as the right, but at times she thought there was slight subjective difference. Reflexes were 2 and equal, downgoing toes. Neck was supple. Chest : Clear. Cardiovascular: Regular rate and rhythm. Abdomen is soft with positive bowel sounds. I discussed with Marya and her that her story was difficult to put together in a single neurological problem. Obviously in somebody who has a prior DVT, the concern would be whether focal neurologic deficits could be stroke. There is no evidence of stroke on MRI scan and her pattern of illness does not immediately suggest the stroke because of the exact details, the stuttering nature with intent to go against for instance an embolic stroke from a DVT through a PFO. Also the fact that it was in her leg and it spread to the arm and instead of going to the hand if this was stuttering stroke in a vascular distribution, the numbness went to the shoulder area first, which would not be typical from a physiological point of view, so I do not think that this is stroke. I would continue the Lovenox and because of this progression I would follow. I also discussed that some patients with demyelinating disease can flare after . I do not think that this is likely to be demyelination, but it is possible. If she progresses, we would need to get an MRI with contrast. Finally, there can be a venous thrombosis causing stroke- like symptoms and if there was progression of symptoms, we would get an MRA, MRV to look for this but there is nothing on her MRI scan that suggests venous infarct at this point and her actual clinical findings are slight at best. She will be admitted for observation at this point and if she is not progressing as she has been, but is clinically stable, then she could go home with close followup. I would screen her for phospholipid syndrome with cardiolipin antibodies and keep her hydrated. Thank you for sharing her case. I spoke to Dr. Alvarenga and Dr. Vasques about her. [id number]/[facility] #: [id number] [id number]
--- NOTE | 2017-04-13 04:20 | ED ---
Virginia Castaneda Thomas, scribed for Hua Alvarenga MD on 04/12/17 at 1947 . Neurological HPI - HPI Summary HPI Summary: The pt is a 31 y/o presenting to the ED c/o L-sided numbness that began five days ago s/p an induced vaginal delivery five days ago in which she was given an epidural. She says that it never felt like the epidural completely wore off after her , and she has been numb to her LLE since the epidural was given. Two days ago, the numbness spread to her left arm and shoulder. Today, the numbness has spread to her left hand. The patient does not have numbness to her abdomen, chest, neck, head, or face. She describes the numbness as it feels like the first 15 minutes of an epidural where it hasnt fully kicked in yet. Pt additionally c/o bilateral temporal KONG (onset last night and relieved in the ED), photophobia, and intermittent abd pain (relieved in the ED). Pt denies aphasia, visual changes, neck pain, weakness, and changes to motor function or strength, and bowel or bladder incontinence. The patient had a blood clot on when she was 8 weeks . Was put on Lovenox from that point to when she was 37 weeks , when she was then put on Heparin. She is now back on Lovenox and is on it for the next six weeks. The patient is accompanied by her and two children. She was referred to the ED by her OBGYN, who she spoke with today on the phone. She had the flu shot three days ago. - History of Current Complaint Chief Complaint: EDGeneral Stated Complaint: LT SIDE NUMBNESS Hx Obtained From: Patient, Family/Window Shade Estimator - and two children present Hx Last Menstrual Period: 07/03/16 Onset/Duration: Gradual Onset, Started days ago - onset 5 days ago, Worse Since - progressively worse Timing: Constant Pain Intensity: 0 Pain Scale Used: 0-10 Numeric Character: Numbness/Tingling Aggravating: Nothing Alleviating: Nothing Associated Signs and Symptoms: Positive: Headache - bilateral temporal yesterday but none in the ED, Numbness - to LLE, LUE. Negative: Visual Changes , Weakness, Impaired Speech, Incontinent Bladder/Bowel, Fever, Neck Pain/ Stiffness - Additional Pertinent History Primary Care Physician: SARAHI - Allergy/Home Medications Allergies/Adverse Reactions: Allergies Allergy/AdvReac Type Severity Reaction Status Date / Time Shellfish Allergy Allergy Mild Rash Verified 04/12/17 18:19 PMH/Surg Hx/FS Hx/Imm Hx Previously Healthy: No Endocrine/Hematology History: Denies: Hx Diabetes, Hx Thyroid Disease Cardiovascular History: Denies: Hx Hypertension Respiratory History: Denies: Hx Asthma, Hx Chronic Obstructive Pulmonary Disease (COPD) GI History: Denies: Hx Ulcer Neurological History: Reports: Hx Migraine Denies: Other Neuro Impairments/Disorders - Surgical History Surgery Procedure, Year, and Place: left ovary removed 1987 Hx Anesthesia Reactions: No Infectious Disease History: No Infectious Disease History: Denies: Hx Clostridium Difficile, Hx Hepatitis, Hx Human Immunodeficiency Virus (HIV), Hx of Known/Suspected MRSA, Hx Shingles, Hx Tuberculosis, Hx Known/ Suspected VRE, Hx Known/Suspected VRSA, History Other Infectious Disease, Traveled Outside the [place] in Last 30 Days - Family History Known Family History: Positive: Hypertension, Diabetes, Other - CA - Social History Alcohol Use: None Hx Substance Use: No Substance Use Type: Reports: None Hx Tobacco Use: No Smoking Status (MU): Never Smoked Tobacco Have You Smoked in the Last Year: No Review of Systems Negative: Fever Positive: Photophobia. Negative: Other - NEGATIVE: visual changes Positive: Abdominal Pain - intermittent Neurological: Other - NEGATIVE: aphasia, weakness, changes to motor function or strength, bowel or bladder incontinence Positive: Headache - temporal temoral KONG yesterday but none in the ED, Numbness - in LUE, LLE; NEGATIVE: in chest, abdomen, neck, head, face All Other Systems Reviewed And Are Negative: Yes Physical Exam Triage Information Reviewed: Yes Vital Signs On Initial Exam: Initial Vitals Temp Pulse Resp BP Pulse Ox 97.5 F 106 18 116/73 99 04/12/17 17:58 04/12/17 17:58 04/12/17 17:58 04/12/17 17:58 04/12/17 17:58 Vital Signs Reviewed: Yes Appearance: Positive: Well-Appearing, No Pain Distress Skin: Positive: Warm, Skin Color Reflects Adequate Perfusion, Dry Head/Face: Positive: Normal Head/Face Inspection Eyes: Positive: EOMI, YENNIFER ENT: Positive: Normal ENT inspection Neck: Positive: Supple, Nontender Respiratory/Lung Sounds: Positive: Clear to Auscultation, Breath Sounds Present Cardiovascular: Positive: RRR, Pulses are Symmetrical in both Upper and Lower Extremities Abdomen Description: Positive: Nontender, Soft Bowel Sounds: Positive: Present Musculoskeletal: Positive: Normal, Strength/ROM Intact Neurological: Positive: Alert, Oriented to Person Place, Time, Other - She has decreased sensation on the left side from the whole left leg, whole left arm, and left shoulder. Equal sensation on the abdomen on both sides. The patient is having a hard time telling whether or not one breast is more numb than the other breast. Psychiatric: Positive: Affect/Mood Appropriate - Marla Coma Scale Coma Scale Total: 15 Diagnostics - Vital Signs Vital Signs Temp Pulse Resp BP Pulse Ox 04/12/17 17:58 97.5 F 106 18 116/73 99 - Laboratory Lab Results: Lab Results 04/12/17 04/12/17 04/12/17 Range/Units 21:16 21:16 21:16 WBC 13.8 H (3.5-10.8) 10^3/ul RBC 4.60 (4.0-5.4) 10^6/ul Hgb 10.6 L (12.0-16.0) g/dl Hct 33 L (35-47) % MCV 71 L (80-97) fL MCH 23 L (27-31) pg MCHC 32 (31-36) g/dl RDW 19 H (10.5-15) % Plt Count 356 (150-450) 10^3/ul MPV 7 L (7.4-10.4) um3 Neut % (Auto) 71.8 (38-83) % Lymph % (Auto) 20.6 L (25-47) % Door % (Auto) 5.7 (1-9) % Eos % (Auto) 1.4 (0-6) % Baso % (Auto) 0.5 (0-2) % Absolute Neuts (auto) 9.9 H (1.5-7.7) 10^3/ul Absolute Lymphs (auto) 2.8 (1.0-4.8) 10^3/ul Absolute Monos (auto) 0.8 (0-0.8) 10^3/ul Absolute Eos (auto) 0.2 (0-0.6) 10^3/ul Absolute Basos (auto) 0.1 (0-0.2) 10^3/ul Absolute Nucleated RBC 0.01 10^3/ul Nucleated RBC % 0 INR (Anticoag Therapy) 1.01 (0.89-1.11) APTT 30.1 (26.0-36.3) seconds Sodium 137 (133-145) mmol/L Potassium TNP Chloride 106 (101-111) mmol/L Carbon Dioxide 22 (22-32) mmol/L Anion Gap 9 (2-11) mmol/L BUN 10 (6-24) mg/dL Creatinine 0.55 (0.51-0.95) mg/dL Est GFR ( Amer) 168.1 (>60) Est GFR (Non-Af Amer) 130.7 (>60) BUN/Creatinine Ratio 18.2 (8-20) Glucose 87 (70-100) mg/dL Lactic Acid (0.5-2.0) mmol/L Calcium 8.7 (8.6-10.3) mg/dL Magnesium 2.1 (1.9-2.7) mg/dL Total Bilirubin 0.40 (0.2-1.0) mg/dL AST TNP ALT 14 (7-52) U/L Alkaline Phosphatase 96 (34-104) U/L C-Reactive Protein 68.93 H (< 5.00) mg/L Total Protein 6.8 (6.4-8.9) g/dL Albumin 3.4 (3.2-5.2) g/dL Globulin 3.4 (2-4) g/dL Albumin/Globulin Ratio 1.0 (1-3) TSH 1.08 (0.34-5.60) mcIU/mL 04/12/17 04/12/17 Range/Units 21:16 22:15 WBC (3.5-10.8) 10^3/ul RBC (4.0-5.4) 10^6/ul Hgb (12.0-16.0) g/dl Hct (35-47) % MCV (80-97) fL MCH (27-31) pg MCHC (31-36) g/dl RDW (10.5-15) % Plt Count (150-450) 10^3/ul MPV (7.4-10.4) um3 Neut % (Auto) (38-83) % Lymph % (Auto) (25-47) % Door % (Auto) (1-9) % Eos % (Auto) (0-6) % Baso % (Auto) (0-2) % Absolute Neuts (auto) (1.5-7.7) 10^3/ul Absolute Lymphs (auto) (1.0-4.8) 10^3/ul Absolute Monos (auto) (0-0.8) 10^3/ul Absolute Eos (auto) (0-0.6) 10^3/ul Absolute Basos (auto) (0-0.2) 10^3/ul Absolute Nucleated RBC 10^3/ul Nucleated RBC % INR (Anticoag Therapy) (0.89-1.11) APTT (26.0-36.3) seconds Sodium (133-145) mmol/L Potassium 3.7 Chloride (101-111) mmol/L Carbon Dioxide (22-32) mmol/L Anion Gap (2-11) mmol/L BUN (6-24) mg/dL Creatinine (0.51-0.95) mg/dL Est GFR ( Amer) (>60) Est GFR (Non-Af Amer) (>60) BUN/Creatinine Ratio (8-20) Glucose (70-100) mg/dL Lactic Acid 0.7 (0.5-2.0) mmol/L Calcium (8.6-10.3) mg/dL Magnesium (1.9-2.7) mg/dL Total Bilirubin (0.2-1.0) mg/dL AST 14 ALT (7-52) U/L Alkaline Phosphatase (34-104) U/L C-Reactive Protein (< 5.00) mg/L Total Protein (6.4-8.9) g/dL Albumin (3.2-5.2) g/dL Globulin (2-4) g/dL Albumin/Globulin Ratio (1-3) TSH (0.34-5.60) mcIU/mL Result Diagrams: 04/12/17 21:16 04/12/17 22:15 Lab Statement: Any lab studies that have been ordered have been reviewed, and results considered in the medical decision making process. - EKG 21:22 Cardiac Rate: NL - 84 BPM EKG Interpretation: Normal sinus rhythm. Biphasic T-wave in V2. No ectopy. - Additional Comments Diagnostic Additional Comments: MRI Brain. Interpreted by radiologist. Impression: Limited study. No acute findings. ED physician has read this report and agrees. 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 Orientation Teacher/Release Non-Paretic Hand: Both Correctly Best Gaze (Only Horizontal Eye Movement): Normal Visual Field Testing: No Visual Loss Facial Paresis-Pt to Smile & Close Eyes or Grimace Symmetry: Normal/Symmetrical Motor Function - Right Arm: No Drift-Holds 10 Seconds Motor Function - Left Arm: No Drift-Holds 10 Seconds Motor Function - Right Leg: No Drift-Holds 10 Seconds Motor Function - Left Leg: No Drift-Holds 10 Seconds Limb Ataxia-Must be out of Proportion to Weakness Present: Absent Sensory (Use Pinprick to Test Arms/Legs/Trunk/Face): Pinprick Less on Affected Best Language (Describe Picture, Name Items): No Aphasia Dysarthria (Read Several Words): Normal Extinction and Inattention: No Abnormality Total Score: 1 Course/Dx - Course Course Of Treatment: Medications reviewed. DR MOSS, NEUROLOGY, SAW PATIENT IN ED. ADMIT HOSPITALIST. NO CRITICAL CARE TIME. - Diagnoses Provider Diagnoses: Numbness and tingling of left arm and leg - Physician Notifications Discussed Care Of Patient With: Luis Alfredo Moss Time Discussed With Above Provider: 19:40 Instructed by Provider To: Other - I consulted with Dr. Ball, neurology, who recommends an MRI brain and that he will probably come to the ED to evaluate the patient. I talked with him again at 10:22. He came to evaluate the patient in the ED. He recommends admission. I consulted with Dr. Vasques, child's nurse , who admits the patient to [facility] [place]. Discharge - Discharge Plan Condition: Stable Disposition: ADMITTED TO [facility] documentation as recorded by the Virginia kang Thomas accurately reflects the service I personally performed and the decisions made by me, Hua Alvarenga MD.
--- NOTE | 2017-04-13 05:40 | HP ---
H&P (Free Text) History and Physical: PCP: Ruby Sullivan NP Date/Time: 04/12/2017 2330 CC: L sided N/T HPI: Mrs Akers is a 31YO female 5 days post-vaginal delivery of her 2nd child who had an epidural resulting in BLE N/T present at discharge 04/09. Saturday evening the N/T in her RLE had resolved, but the LLE remained. she noted onset of N/T in the L arm from just proximal of the elbow to just distal. Today her L hand and a small area on the L chin became numb prompting her to present for evaluation. She denies focal weakness, change in speech, swallow, or vision. She does have a HX of migraines and has experience "light sensitivity " for the past week without headache. PMedHx DVT LLE on enoxaparin SQ daily, she thinks her dose is 100mg, but pharmacy noted her dose after delivery was 40mg HX 1st trimester miscarriage migraine Ambulatory Orders Flintstones Gummies Plus 2 tab PO DAILY 04/07/17 Zantac 150 Maximum Streng 150 mg PO BID 04/08/17 Acetaminophen TAB* [Tylenol TAB*] 650 mg PO Q4H PRN #0 tab 04/09/17 Docusate CAP* [Colace Cap*] 100 mg PO BID cap 04/09/17 Enoxaparin(*) [Lovenox(*)] 40 mg SUBCUT Q24H syringe 04/09/17 Ferrous Gluconate TAB* [Fergon TAB*] 324 mg PO BID tab 04/09/17 Allergies Shellfish Allergy Allergy (Mild, Verified 04/12/17 18:19) Rash PSurgHx R oophorectomy wisdom teeth extraction SocHx: no tobacco, alcohol, or recreational drugs; lives with her , 1 toddler, 1 new ; full code status FamHx: Mother: in her 50s 2nd esophageal CA; Father: alive in his 60s w / prostate CA; Twin sister: healthy; otherwise no early onset CAD/CVA or multiple sclerosis ROS: as above, otherwise reviewed and all were negative vitals: Vital Signs Temp 36.8 C 04/13/17 03:29 Pulse 94 04/13/17 03:29 Resp 16 04/13/17 03:29 BP 110/62 04/13/17 03:29 Pulse Ox 99 04/13/17 03:29 Intake & Output 04/12/17 04/12/17 04/13/17 11:59 23:59 11:59 Intake Total 600 Balance 600 Weight 65.317 kg Intake: IV Fluids 600 Constitutional: NAD, normally developed, well-nourished female HEENM: atraumatic; sclera/conjunctiva: non-icteric/clear; hearing: clinically intact; oropharynx: clear, mucosa moist Neck: soft tissue: non-tender; thyroid: normal Pulmonary: clear to auscultation bilaterally, good aeration, no accessory muscle use CV: RR/RR, normal S1S2, no carotid bruit, no jugular venous distention, 2+ B DP/ PT, no edema Abdominal: soft, non-distended, non-tender, no rebound/guarding/rigidity, normoactive bowel sounds, no hepatosplenomegaly or masses, no costovertebral angle tenderness Musculoskeletal: general: grossly intact, no palpable tenderness Integumental: normal appearance and texture of exposed skin Neurological Deferred to Neelima Moss MD neurology Psychiatric orientation: AA&O to PPS affect: calm mood: cooperative eye contact: good content: reliable responses: timely insight: good Testing: Lab Results 04/12/17 04/12/17 04/12/17 Range/Units 21:16 21:16 21:16 WBC 13.8 H (3.5-10.8) 10^3/ul RBC 4.60 (4.0-5.4) 10^6/ul Hgb 10.6 L (12.0-16.0) g/dl Hct 33 L (35-47) % MCV 71 L (80-97) fL MCH 23 L (27-31) pg MCHC 32 (31-36) g/dl RDW 19 H (10.5-15) % Plt Count 356 (150-450) 10^3/ul MPV 7 L (7.4-10.4) um3 Neut % (Auto) 71.8 (38-83) % Lymph % (Auto) 20.6 L (25-47) % Edgar % (Auto) 5.7 (1-9) % Eos % (Auto) 1.4 (0-6) % Baso % (Auto) 0.5 (0-2) % Absolute Neuts (auto) 9.9 H (1.5-7.7) 10^3/ul Absolute Lymphs (auto) 2.8 (1.0-4.8) 10^3/ul Absolute Monos (auto) 0.8 (0-0.8) 10^3/ul Absolute Eos (auto) 0.2 (0-0.6) 10^3/ul Absolute Basos (auto) 0.1 (0-0.2) 10^3/ul Absolute Nucleated RBC 0.01 10^3/ul Nucleated RBC % 0 INR (Anticoag Therapy) 1.01 (0.89-1.11) APTT 30.1 (26.0-36.3) seconds Sodium 137 (133-145) mmol/L Potassium TNP Chloride 106 (101-111) mmol/L Carbon Dioxide 22 (22-32) mmol/L Anion Gap 9 (2-11) mmol/L BUN 10 (6-24) mg/dL Creatinine 0.55 (0.51-0.95) mg/dL Est GFR ( Amer) 168.1 (>60) Est GFR (Non-Af Amer) 130.7 (>60) BUN/Creatinine Ratio 18.2 (8-20) Glucose 87 (70-100) mg/dL Lactic Acid (0.5-2.0) mmol/L Calcium 8.7 (8.6-10.3) mg/dL Magnesium 2.1 (1.9-2.7) mg/dL Total Bilirubin 0.40 (0.2-1.0) mg/dL AST TNP ALT 14 (7-52) U/L Alkaline Phosphatase 96 (34-104) U/L C-Reactive Protein 68.93 H (< 5.00) mg/L Total Protein 6.8 (6.4-8.9) g/dL Albumin 3.4 (3.2-5.2) g/dL Globulin 3.4 (2-4) g/dL Albumin/Globulin Ratio 1.0 (1-3) TSH 1.08 (0.34-5.60) mcIU/mL 04/12/17 04/12/17 Range/Units 21:16 22:15 WBC (3.5-10.8) 10^3/ul RBC (4.0-5.4) 10^6/ul Hgb (12.0-16.0) g/dl Hct (35-47) % MCV (80-97) fL MCH (27-31) pg MCHC (31-36) g/dl RDW (10.5-15) % Plt Count (150-450) 10^3/ul MPV (7.4-10.4) um3 Neut % (Auto) (38-83) % Lymph % (Auto) (25-47) % Edgar % (Auto) (1-9) % Eos % (Auto) (0-6) % Baso % (Auto) (0-2) % Absolute Neuts (auto) (1.5-7.7) 10^3/ul Absolute Lymphs (auto) (1.0-4.8) 10^3/ul Absolute Monos (auto) (0-0.8) 10^3/ul Absolute Eos (auto) (0-0.6) 10^3/ul Absolute Basos (auto) (0-0.2) 10^3/ul Absolute Nucleated RBC 10^3/ul Nucleated RBC % INR (Anticoag Therapy) (0.89-1.11) APTT (26.0-36.3) seconds Sodium (133-145) mmol/L Potassium 3.7 Chloride (101-111) mmol/L Carbon Dioxide (22-32) mmol/L Anion Gap (2-11) mmol/L BUN (6-24) mg/dL Creatinine (0.51-0.95) mg/dL Est GFR ( Amer) (>60) Est GFR (Non-Af Amer) (>60) BUN/Creatinine Ratio (8-20) Glucose (70-100) mg/dL Lactic Acid 0.7 (0.5-2.0) mmol/L Calcium (8.6-10.3) mg/dL Magnesium (1.9-2.7) mg/dL Total Bilirubin (0.2-1.0) mg/dL AST 14 ALT (7-52) U/L Alkaline Phosphatase (34-104) U/L C-Reactive Protein (< 5.00) mg/L Total Protein (6.4-8.9) g/dL Albumin (3.2-5.2) g/dL Globulin (2-4) g/dL Albumin/Globulin Ratio (1-3) TSH (0.34-5.60) mcIU/mL ECG, personally reviewed: NSR rate 84, no ischemia MRI brain WO, personally reviewed: IMPRESSION: LIMITED STUDY, NO EVIDENCE FOR ACUTE FINDING. Impression: 31F 5 days post-vaginal delivery of her 2nd child presenting with atypical progression of L-sided N/T DIAGNOSIS & PLAN Primary atypical neurologic complaint : Neelima Moss MD neurology evaluated in ED & will follow : telemetry : consider ECHO & MRI brain W for motor symptoms or further progression of sensory symptoms : neurochecks Q1H x4 then Q2H : supportive care Secondary 5 days post-vaginal delivery : no acute issues : docusate : iron supplement : consider BRICK POINTER consult, if needed Admission Rational: observation for atypical neurologic complaint DVTp: continue enoxaparin 40mg SQ daily Code Status: full HCP:
[2017-04-13 05:57] LABS: Comments Flag Yes; Hematocrit 29 % (35-47); Hemoglobin 9.6 g/dl (12.0-16.0); Mean Corpuscular HGB Conc 33 g/dl (31-36); Mean Corpuscular Hemoglobin 23 pg (27-31); Mean Corpuscular Volume 70 fL (80-97); Mean Platelet Volume 7 um3 (7.4-10.4); Red Blood Count 4.17 10^6/ul (4.0-5.4); Red Cell Distribution Width 19 % (10.5-15); White Blood Count 11.7 10^3/ul (3.5-10.8)
[2017-04-13 06:10] LABS: BUN/Creatinine Ratio 14.9 (8-20); Calcium 8.3 mg/dL (8.6-10.3); EGFR African American 201.5 (>60); EGFR Non-African American 156.7 (>60); Potassium 3.5 mmol/L (3.5-5.0)
[2017-04-13 08:52] VITALS: BP 104/56
[2017-04-13] MEDS ORDERED: Docusate CAP* 100 MG PO SCH (09:00)
[2017-04-13] MEDS ORDERED: Ferrous Gluconate TAB* 324 MG TAB PO SCH (09:00)
[2017-04-13] MEDS ORDERED: Enoxaparin(*) 100 MG/ML SYR SUBCUT SCH (09:00)
--- NOTE | 2017-04-13 13:58 | PN ---
NEUROLOGICAL FOLLOWUP: DATE OF VISIT: 04/13/17 HISTORY: She notes this morning that her numbness is much better. It is no longer in the left arm and hand it is not in the face around the cheek area it just in the left foot. There is no weakness. Her medications are unchanged include Lovenox. Temperature 97, pulse 89, respirations 16, blood pressure 104/ 56. She is alert, oriented with normal speech and comprehension. Cranial nerves II through XII are intact. Face is symmetric. There is no numbness in her face. She had normal strength, coordination, normal gait. Negative pronator drift. Normal Romberg. Fine motor was intact neither hand. There is no decreased sensation in her left arm or hand. No numbness in her right side at all. There was some slight numbness subjectively in her left foot. Reflexes are 2 and equal. Chest: Clear. Cardiovascular: Regular rate and rhythm without murmur. Abdomen: Soft, positive bowel sounds. White count 11.7, hematocrit 29, platelets 337. INR 1, PTT 30. BMP, this morning her calcium is 8.3. Marya's numbness is much better. Today, we were concerned because she was having progressive numbness including saying to the face over yesterday and worsening in the arm without any weakness, but mostly resolution of her numbness. This is reassuring and she can go home without any further workup in the hospital. This may have been numbness in her leg from her epidural, which is clearing and then extrapolation to her left arm and face and she states that when she was in the ER she was nervous and she thinks she was thinking too hard , so she then thought that she had facial numbness. I discussed with her that it is unlikely that this would be things like demyelinating disease, venous thrombosis, stroke with her history, her exam, and her normal MRI scan; however , if she develops weakness or other symptoms she can contact me for the next week or go into the ER for symptoms in her leg persist. I will be glad to see her in followup and she will be seeing her OB in the next few weeks' time. I have spoken to Dr. Davison. Thank you for sharing her case. [id number]/[facility] #: [id number] GABE
--- NOTE | 2017-04-14 00:37 | DS ---
CC: Dr. Moss; Dr. Evans; Kym Sullivan NP * DISCHARGE SUMMARY: DATE OF ADMISSION: 04/12/17 DATE OF DISCHARGE: 04/13/17 DISCHARGE DIAGNOSIS: Left-sided numbness, nonspecific, resolving by the time of discharge. SECONDARY DIAGNOSES: 1. The patient is day 5. 2. History of deep vein thrombosis during . 3. History of migraine headaches. MEDICATIONS AT DISCHARGE: Unchanged from admission and include: 1. Zantac 150 mg b.i.d. 2. Acetaminophen on a p.r.n. basis. 3. Colace 100 mg b.i.d. p.r.n. 4. Lovenox 100 mg subcutaneously daily injection. 5. Ferrous gluconate 324 mg b.i.d. CONSULTATIONS DURING THE HOSPITAL STAY: Included Dr. Moss from Neurology. LABORATORY DATA AND STUDIES PERFORMED: Included: On 04/13/17, white blood cell count of 11.7, hemoglobin 9.6, hematocrit of 29, MCV of 17, platelets of 337. Sodium 138, potassium 3.5, chloride 108, carbon dioxide 23, BUN 7, creatinine 0.47. MRI of the brain obtained on 04/12/17 showed limited study with no evidence of acute finding. HOSPITALIZATION COURSE: Marya Akers is a 31-year-old female, day 5, who presented to the hospital complaining of left-sided weakness. The patient stated that the weakness had been ongoing at that point for approximately 2 to 3 days, initially started happening in the left leg, but then spread up to her left arm and on the day of admission it also appears to be in the left cheek. The patient did have an epidural anesthesia for her delivery on 04/07/17. The patient's MRI of the brain was unremarkable. She does have history of DVT and she had been on Lovenox at 100 mg daily and she is to continue it for another [address] Evans's recommendation. Dr. Moss saw the patient in consultation and thought that although the numbness in the leg could have been a consequence of the patient's epidural anesthesia that would not correlate with the left arm and the left cheek numbness. The patient also had headache that could be linked to may be atypical migraine symptoms with left-sided numbness. Nevertheless, the patient was observed on telemetry monitored bed and no arrhythmias were noted. During her observation, the numbness started resolving. By the time of discharge, she only had numbness in the left foot. Her headache also resolved. Dr. Moss saw the patient for a followup on the day of discharge. Recommended for the patient to be discharged home and to not hesitate to be evaluated in the emergency department if she redevelops numbness or weakness. PHYSICAL EXAMINATION AT THE TIME OF DISCHARGE: Blood pressure of 104/56, heart rate of 89 and regular, respiratory rate 16, oxygen saturation 98% on room air, temperature of 98.3. General: The patient is a very pleasant 31-year-old female, who is in no acute distress. Alert, awake, and oriented x3. HEENT: Head, atraumatic, normocephalic. Eyes: Pupils equal and reactive to light and accommodation. Oropharynx clear. Mucosa moist. Neck: Supple. No JVD. No bruit bilaterally. Cardiovascular: Regular rate and rhythm. No murmur. Respiratory: Clear to auscultation bilaterally. Abdomen: Soft, nontender, bowel sounds present in all 4 quadrants. Extremities: There is no edema. Pulses are +2 bilaterally. No clubbing or cyanosis. Neuro Evaluation: Speech clear. Cranial nerves II through XII grossly intact. Motor strength is 5/5 bilaterally. In regards to sensation, the patient still has problems with decreased sensation in the left foot, but no problems with sensation in bilateral arms or her face. The patient is going to be discharged home and recommendation to follow up with primary care provider in 4 to 7 days. [id number]/[facility] #: [id number] [id number]
== END 2017-04-13 14:11 | disposition home or self-care (01) ==
LOC: ED 17:49 → MEDTELE 23:27
PROVIDERS: ADMIT Hospitalist; ATTEND Internal Medicine
DX: R20.0 Anesthesia of skin (principal); R53.1 Weakness; Z86.718 Personal history of other venous thrombosis and embolism; Z79.01 Long term (current) use of anticoagulants; G43.909 Migraine, unspecified, not intractable, without status migrainosus
CPT/HCPCS: 36415; 70551; 80048; 80053; 83605; 83735; 84443; 85025; 85610; 85730; 86140; 93005; 94760; 96360; 96361; 96372; 99284; A9270-GY; G0378; J1650

== ENCOUNTER 2017-06-28 11:22 | Emergency (ER) | payer OTHER ==
[2017-06-28 14:27] VITALS: BP 121/79
--- NOTE | 2017-06-28 14:33 | UC ---
Respiratory Complaint HPI - HPI Summary HPI Summary: 31 yo female with cough/sore throat and hoarseness x 2 days no fever has had chills no n/v/d no CP or SOB she is breast feeding had DVT during prenancy - History of Current Complaint Chief Complaint: UCRespiratory Stated Complaint: CHEST CONGESTION Time Seen by Provider: 06/28/17 14:15 Hx Obtained From: Patient Hx Last Menstrual Period: 06/2016- recenlty gave 03/2017 Onset/Duration: Gradual Onset, Lasting Days Timing: Constant Severity Initially: Mild Severity Currently: Moderate Pain Intensity: 3 - throat Pain Scale Used: 0-10 Numeric Character: Cough: Productive - at times Alleviating Factors: Nothing Associated Signs And Symptoms: Positive: Chills, Nasal Congestion, Hoarseness Related History: Similar Episode/Dx as: - bronchitis - Allergies/Home Medications Allergies/Adverse Reactions: Allergies Allergy/AdvReac Type Severity Reaction Status Date / Time No Known Allergies Allergy Verified 06/28/17 11:55 Home Medications: Home Medications Acetaminophen [Acetaminophen Extra Stren] 500 mg PO Q8HR PRN 06/28/17 [History Confirmed 06/28/17] PMH/Surg Hx/FS Hx/Imm Hx Previously Healthy: Yes Respiratory History: Bronchitis - Surgical History Surgical History: Yes Surgery Procedure, Year, and Place: left ovary removed 1987 - Family History Known Family History: Positive: Hypertension, Diabetes, Other - [place] - Social History Alcohol Use: None Substance Use Type: None Smoking Status (MU): Never Smoked Tobacco Have You Smoked in the Last Year: No - Immunization History Most Recent Influenza Vaccination: 2016 Most Recent Tetanus Shot: unk Most Recent Pneumonia Vaccination: never Review of Systems Constitutional: Chills, Fatigue Skin: Negative Eyes: Negative ENT: Nasal Discharge Respiratory: Cough Cardiovascular: Negative Gastrointestinal: Negative Genitourinary: Negative Motor: Negative Neurovascular: Negative Musculoskeletal: Negative Neurological: Negative Psychological: Negative Is Patient Immunocompromised?: No All Other Systems Reviewed And Are Negative: Yes Physical Exam Triage Information Reviewed: Yes Appearance: Well-Appearing, No Pain Distress, Well-Nourished Vital Signs: Initial Vital Signs Temp 98.8 F 06/28/17 11:56 Pulse 81 06/28/17 11:56 Resp 18 06/28/17 11:56 BP 103/61 06/28/17 11:56 Pulse Ox 99 06/28/17 11:56 Vital Signs Reviewed: Yes Eyes: Positive: Conjunctiva Clear ENT: Positive: Hearing grossly normal, Pharyngeal erythema, Nasal congestion, TMs normal, Hoarse voice, Uvula midline. Negative: Nasal drainage, TM bulging, TM red, Tonsillar swelling, Tonsillar exudate, Trismus, Muffled voice Neck: Positive: Supple, Nontender, No Lymphadenopathy Respiratory: Positive: Lungs clear, Normal breath sounds, No respiratory distress, No accessory muscle use, Wheezing - with forced expiration Cardiovascular: Positive: RRR, No Murmur. Negative: Tachycardia Musculoskeletal: Positive: ROM Intact, No Edema Neurological: Positive: Alert Psychological Exam: Normal Skin Exam: Normal UC Diagnostic Evaluation - Laboratory O2 Sat by Pulse Oximetry: 96 - normal/not hypoxic Respiratory Course/Dx - Differential Dx/Diagnosis Provider Diagnoses: acute bronchitis Discharge - Discharge Plan Condition: Stable Disposition: HOME Prescriptions: Amoxicillin PO (*) [Amoxicillin 875 MG (*)] 875 mg PO BID #20 tab Patient Education Materials: Acute Bronchitis (ED) Referrals: Kym Sullivan NP [Primary Care Provider] - Additional Instructions: recheck in 6 days with your provider as planned recheck sooner for new or worsening symptoms
== END 2017-06-28 14:29 | disposition home or self-care (01) ==
LOC: UCEAST 11:22
DX: J20.9 Acute bronchitis, unspecified (principal)
CPT/HCPCS: 87651; 99212; G0463

== ENCOUNTER 2018-07-15 11:11 | Emergency (ER) | payer OTHER ==
--- OUTSIDE RECORDS SUMMARY | 2018-07-15 11:59 | XMS REPORT ---
:1985 External Reference #:[id number] Author Organization [facility] Address [address] [place] [address] Phone [phone] Care Team Providers Name Role Phone Padmini Quigley Care Team Information Peripatologist Unavailable Padmini Quiglye Primary Care Physician Unavailable Payers Type Date Identification Numbers Payment Provider Subscriber Medicaid Effective: Policy Number: [id number] [facility] Marya Cain 2016 PayID: [id number] [address] [address] [place] [address] Medicaid Effective: 2016 Policy Number: [id number] [place] Marya Cain Expires: 2016 Group Name: Medicaid [address] PayID: [id number] [facility] [place] [address] Problems Description No Information Family History Date Family Member(s) Problem(s) Comments Maternal Grandmother due to brain ca () Social History Type Date Description Comments Diet Healthy, Well Balanced Sleep Reports normal sleep activity 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 Cigarette Use Never Smoked Cigarettes ETOH Use Occasional Recreational Drug Use Never Used Drugs Smoking Patient has never smoked Daily Caffeine Rare Currently Active Patient is currently sexually active Contraceptive Methods Current methods include condoms Contraceptive Methods Past methods include ring (Nuva) Allergies, Adverse Reactions, Alerts Date Description Reaction Status Severity Comments 10/06/2012 NKDA active Medications Medication Date Status Form Strength Qnty SIG Indications Ordering Provider Proair HFA 06/17 Hx Aerosol 108(90Bas 8.500 2 puffs Keya e) gm every 4 [place], - mcg/Act hours as Afnp-C 07/01 needed for cough/wheeze No Active 03/05 Hx Unknown Medications /2017 - 06/17 Naproxen 09/28 Hx Tablets 500mg 60tab 1 by mouth M54.89 s twice a day [facility], - with food [facility] 03/05 Cyclobenzaprine 09/28 Hx Tablets 5mg 30tab one to two M54.89 Kym s tablet every [facility], - night at [facility] 03/05 bedtime needed Massage Therapy 07/04 Hx eval/treat M54.89 Kym back pain [facility], - [facility] 03/05 Physical Therapy 07/04 Hx eval/treat M54.89 Kym back pain [facility], - [facility] 03/05 No Active 08/10 Hx Unknown Medications /2016 - 10/25 Valacyclovir HCL 10/28 Hx Tablets 1gm 21tab 1 po tid x 7 053.9 s days [facility], - [facility] 08/10 No Active 10/06 Hx Unknown Medications /2012 - 10/28 Lovenox Hx Solution 100mg/ml 100mg sq Unknown /0000 bid, start 4 - days before 07/04 procedure and discontinue coumadin, restart with coumadin 12 hours after the procedure Benadryl Allergy Hx Tablets 25mg 1 q4-6hrs Unknown /0000 prn - 07/04 Vital Signs Date Vital Result Comment 06/17/2018 BP Systolic 122 mmHg BP Diastolic 68 mmHg Heart Rate 76 /min Body Temperature 97.9 F Height 63.5 inches 5'3.50" Weight 153.00 lb BMI (Body Mass Index) 26.7 kg/m2 03/05/2018 BP Systolic 106 mmHg BP Diastolic 68 mmHg Heart Rate 68 /min Body Temperature 98.1 F Respiratory Rate 16 /min Height 63.5 inches 5'3.50" Weight 153.00 lb BMI (Body Mass Index) 26.7 kg/m2 09/28/2017 BP Systolic 112 mmHg BP Diastolic 60 mmHg Heart Rate 84 /min Body Temperature 98.0 F Respiratory Rate 16 /min Height 63.5 inches 5'3.50" Weight 156.00 lb BMI (Body Mass Index) 27.2 kg/m2 07/04/2017 BP Systolic 112 mmHg BP Diastolic 82 mmHg Heart Rate 92 /min Body Temperature 97.5 F Respiratory Rate 16 /min Height 63.5 inches 5'3.50" Weight 146.12 lb BMI (Body Mass Index) 25.5 kg/m2 01/19/2017 BP Systolic 110 mmHg BP Diastolic 60 mmHg Heart Rate 72 /min Body Temperature 98.1 F Respiratory Rate 16 /min Height 63.5 inches 5'3.50" Weight 152.12 lb BMI (Body Mass Index) 26.5 kg/m2 10/25/2016 BP Systolic 120 mmHg BP Diastolic 76 mmHg Heart Rate 96 /min Body Temperature 97.9 F Height 63.5 inches 5'3.50" Weight 148.38 lb BMI (Body Mass Index) 25.9 kg/m2 2016 BP Systolic 116 mmHg BP Diastolic 70 mmHg Heart Rate 80 /min Body Temperature 98.5 F Height 63.5 inches 5'3.50" Weight 155.00 lb BMI (Body Mass Index) 27.0 kg/m2 10/28/2012 BP Systolic 102 mmHg BP Diastolic 62 mmHg Heart Rate 60 /min Body Temperature 98.3 F Height 64 inches 5'4" Weight 121.00 lb BMI (Body Mass Index) 20.8 kg/m2 10/06/2012 BP Systolic 104 mmHg BP Diastolic 60 mmHg Heart Rate 75 /min Body Temperature 98.1 F Height 64 inches 5'4" Weight 121.00 lb BMI (Body Mass Index) 20.8 kg/m2 Results Test Date Test Result H/L Range Note Laboratory test finding 03/05/2018 Vitamin B-12 626 pg/mL 230-1050 CBC Electronic Fma 03/05/2018 WBC 6.3 x10^3/UL 4.0-10.0 RBC 5.07 x10^6/UL 3.93-6.00 HGB 13.2 g/dL 12.0-17.0 HCT 38 % 35-50 MCV 74.4 fL Low 80.0-95.0 MCH 26.0 pg 25.6-32.2 MCHC 35.0 g/dL 32.2-36.0 RDW-CV 15.8 % High 11.6-14.4 PLT 329 x10^3/UL 163-400 MPV 10.0 fL 9.4-12.4 Anuj# 4.02 x10^3/UL 1.56-6.13 Lymph# 1.70 x10^3/UL 1.18-3.74 Mcclain# 0.43 x10^3/UL 0.24-0.82 Eos # 0.1 x10^3/UL 0.0-0.5 Baso # 0.03 x10^3/UL 0.01-0.08 Anuj% 64.3 % 34.0-70.0 Lymph % 27.2 % 20.0-52.0 Mcclain% 6.9 % 5.0-12.0 Eos% 1.1 % 0.7-7.0 Baso% 0.5 % 0.1-1.2 Comprehensive Metabolic Prof 03/05/2018 Sodium 141 mEq/L 134-149 Potassium 4.3 mEq/L 3.6-5.5 Chloride 107 mEq/L 94-112 Carbon Dioxide 24 mEq/L 21-32 Glucose 103 mg/dL 70-105 BUN 11 mg/dL 6-26 Creatinine 0.6 mg/dL 0.6-1.4 BUN/Creat Ratio 18.3 CALC 8.0-36.0 Calcium 8.6 mg/dL 8.6-10.2 Total Protein 6.4 g/dL 6.4-8.3 Albumin 4.4 g/dL 3.8-5.5 Globulin 2.0 g/dL 2.0-4.8 A/G Ratio 2.2 CALC 0.6-2.3 Alk. Phosphatase 78 U/L 30-110 Alt (SGPT) 15 U/L 7-35 Ast (Sgot) 18 U/L 5-34 Total Bilirubin 1.0 mg/dL 0.2-1.3 GFR Non- >60 ml/min/1.73m^ >=60 GFR >60 ml/min/1.73m^ >=60 Laboratory test finding 03/05/2018 Free T4 1.33 ng/dL 0.75-1.54 TSH 0.68 mIU/L 0.50-6.00 Vitamin D25 24 Low 30-100 Laboratory test finding 06/28/2017 Rapid Strep Molecular Negative Negative 1 Laboratory test finding 04/12/2017 Magnesium 2.1 mg/dL 1.9-2.7 2 C Reactive Protein 68.93 mg/L High < 5.00 3 TSH (Thyroid Stim Horm) 1.08 mcIU/mL 0.34-5.60 4 Comp Metabolic Panel 04/12/2017 Sodium 137 mmol/L 133-145 Chloride 106 mmol/L 101-111 Co2 Carbon Dioxide 22 mmol/L 22-32 Glucose 87 mg/dL 70-100 Blood Urea Nitrogen 10 mg/dL 6-24 Creatinine 0.55 mg/dL 0.51-0.95 BUN/Creatinine Ratio 18.2 8-20 Calcium 8.7 mg/dL 8.6-10.3 Total Protein 6.8 g/dL 6.4-8.9 Albumin 3.4 g/dL 3.2-5.2 Globulin 3.4 g/dL 2-4 Albumin/Globulin Ratio 1.0 1-3 Total Bilirubin 0.40 mg/dL 0.2-1.0 Alkaline Phosphatase 96 U/L 34-104 Alt 14 U/L 7-52 Egfr Non- 130.7 >60 Egfr 168.1 >60 5 Potassium TNP mmol/L 3.5-5.0 Anion Gap 9 mmol/L 2-11 Ast TNP U/L 13-39 Laboratory test finding 04/12/2017 Partial Thrombo Time 30.1 seconds 26.0 -36.3 PTT Laboratory test finding 04/12/2017 Potassium Redraw 3.7 mmol/L 3.5-5.0 Ast Redraw 14 U/L 13-39 CBC Auto Diff 04/12/2017 White Blood Count 13.8 10^3/uL High 3.5-10.8 Red Blood Count 4.60 10^6/uL 4.0-5.4 Hemoglobin 10.6 g/dL Low 12.0-16.0 Hematocrit 33 % Low 35-47 Mean Corpuscular Volume 71 fL Low 80-97 6 Mean Corpuscular Hemoglobin 23 pg Low 27-31 Mean Corpuscular HGB Conc 32 g/dL 31-36 Red Cell Distribution Width 19 % High 10.5-15 Platelet Count 356 10^3/uL 150-450 Mean Platelet Volume 7 um3 Low 7.4-10.4 Abs Neutrophils 9.9 10^3/uL High 1.5-7.7 Abs Lymphocytes 2.8 10^3/uL 1.0-4.8 Abs Monocytes 0.8 10^3/uL 0-0.8 Abs Eosinophils 0.2 10^3/uL 0-0.6 Abs Basophils 0.1 10^3/uL 0-0.2 Abs Nucleated RBC 0.01 10^3/uL Granulocyte % 71.8 % 38-83 Lymphocyte % 20.6 % Low 25-47 Monocyte % 5.7 % 1-9 Eosinophil % 1.4 % 0-6 Basophil % 0.5 % 0-2 Nucleated Red Blood Cells % 0 Inr/Protime 04/12/2017 Inr 1.01 0.89-1.11 Laboratory test 04/12/2017 Lactic Acid 0.7 mmol/L 0.5-2.0 7 finding Laboratory test 04/03/2017 Urine Culture And SEE RESULT BELOW 8 finding Sensitivities Comp Metabolic Panel 04/03/2017 Sodium 134 mmol/L 133-145 Potassium 3.4 mmol/L Low 3.5-5.0 Chloride 105 mmol/L 101-111 Co2 Carbon Dioxide 23 mmol/L 22-32 Anion Gap 6 mmol/L 2-11 Glucose 89 mg/dL 70-100 Blood Urea Nitrogen 4 mg/dL Low 6-24 Creatinine 0.48 mg/dL Low 0.51-0.95 BUN/Creatinine Ratio 8.3 8-20 Calcium 8.6 mg/dL 8.6-10.3 Total Protein 6.0 g/dL Low 6.4-8.9 Albumin 3.1 g/dL Low 3.2-5.2 Globulin 2.9 g/dL 2-4 Albumin/Globulin Ratio 1.1 1-3 Total Bilirubin 0.70 mg/dL 0.2-1.0 Alkaline Phosphatase 125 U/L High 34-104 Alt 7 U/L 7-52 Ast 13 U/L 13-39 Egfr Non- 152.9 >60 Egfr 196.6 >60 9 Urinalysis Profile 04/03/2017 Urine White Blood Cell Trace(0-5/hpf) Absent Urine Red Blood Cell Trace(0-2/hpf) Absent Urine Bacteria Absent Absent Urine Squamous Epithelial Cell Present Absent Urine Color Yellow Urine Appearance Clear Urine Specific Brooks 1.000 Low 1.010-1.030 Urine pH 6 5-9 Urine Urobilinogen Negative Negative Urine Ketones Negative Negative Urine Protein N Negative Urine Leukocytes Negative Negative Urine Blood N Negative * N Negative Urine Nitrite N Negative Urine Bilirubin Negative Negative Urine Glucose N Negative CBC No Diff 04/03/2017 White Blood Count 11.5 10^3/uL High 3.5-10.8 Red Blood Count 4.58 10^6/uL 4.0-5.4 Hemoglobin 10.5 g/dL Low 12.0-16.0 Hematocrit 32 % Low 35-47 Mean Corpuscular Volume 69 fL Low 80-97 Mean Corpuscular Hemoglobin 23 pg Low 27-31 Mean Corpuscular HGB Conc 33 g/dL 31-36 Red Cell Distribution Width 18 % High 10.5-15 Platelet Count 249 10^3/uL 150-450 Mean Platelet Volume 8 um3 7.4-10.4 Laboratory test finding 02/04/2017 C Reactive Protein 15.48 mg/L High < 5.00 10 Erythrocyte Sed Rate 73 mm/Hr High 0-14 Type & Screen 02/04/2017 Patient Blood Type A Positive Antibody Screen NEGATIVE Urinalysis Profile 02/04/2017 Urine Color Yellow Urine Appearance Clear Urine Specific Brooks 1.024 1.010-1.030 Urine pH 7.0 5-9 Urine Urobilinogen Negative Negative Urine Ketones Negative Negative Urine Protein 1+(30 mg/dL) Negative Urine Leukocytes Negative Negative Urine Blood Negative Negative Urine Nitrite Negative Negative Urine Bilirubin Negative Negative Urine Glucose Negative Negative Urine White Blood Cell Trace(0-5/hpf) Absent Urine Red Blood Cell Trace(0-2/hpf) Absent Urine Bacteria Absent Absent Urine Squamous Epithelial Cell Present Absent Urine Hyaline Casts Present Absent CBC No Diff 02/04/2017 White Blood Count 10.9 10^3/uL High 3.5-10.8 Red Blood Count 4.31 10^6/uL 4.0-5.4 Hemoglobin 11.0 g/dL Low 12.0-16.0 Hematocrit 33 % Low 35-47 Mean Corpuscular Volume 77 fL Low 80-97 Mean Corpuscular Hemoglobin 26 pg Low 27-31 Mean Corpuscular HGB Conc 33 g/dL 31-36 Red Cell Distribution Width 17 % High 10.5-15 Platelet Count 305 10^3/uL 150-450 Mean Platelet Volume 8 um3 7.4-10.4 Comp Metabolic Panel 02/04/2017 Sodium 133 mmol/L 133-145 Potassium 3.7 mmol/L 3.5-5.0 Chloride 102 mmol/L 101-111 Co2 Carbon Dioxide 25 mmol/L 22-32 Anion Gap 6 mmol/L 2-11 Glucose 83 mg/dL 70-100 Blood Urea Nitrogen 7 mg/dL 6-24 Creatinine 0.55 mg/dL 0.51-0.95 BUN/Creatinine Ratio 12.7 8-20 Calcium 8.8 mg/dL 8.6-10.3 Total Protein 6.5 g/dL 6.4-8.9 Albumin 3.4 g/dL 3.2-5.2 Globulin 3.1 g/dL 2-4 Albumin/Globulin Ratio 1.1 1-3 Total Bilirubin 0.50 mg/dL 0.2-1.0 Alkaline Phosphatase 73 U/L 34-104 Alt 7 U/L 7-52 Ast 14 U/L 13-39 Egfr Non- 130.7 >60 Egfr 168.1 >60 11 Laboratory test finding 02/04/2017 Lactic Acid 1.3 mmol/L 0.5-2.0 12 Urinalysis Profile 09/08/2016 Urine Color Vonnie Urine Appearance Cloudy Urine Specific Brooks 1.040 High 1.010-1.030 Urine pH 5.0 5-9 Urine Urobilinogen Negative Negative Urine Ketones 2+ Negative Urine Protein 1+(30 mg/dL) Negative Urine Leukocytes Trace Negative Urine Blood Negative Negative Urine Nitrite Negative Negative Urine Bilirubin 1+ Negative Urine Glucose Negative Negative Urine White Blood Cell Trace(0-5/hpf) Absent Urine Red Blood Cell Absent Absent Urine Bacteria Absent Absent Urine Squamous Epithelial Cell Present Absent Laboratory test 09/08/2016 HCG 416308.00 mIU/mL 13 finding CBC Auto Diff 09/08/2016 White Blood Count 12.8 10^3/uL High 3.5-10.8 Red Blood Count 4.57 10^6/uL 4.0-5.4 Hemoglobin 12.0 g/dL 12.0-16.0 Hematocrit 35 % 35-47 Mean Corpuscular Volume 77 fL Low 80-97 Mean Corpuscular Hemoglobin 26 pg Low 27-31 Mean Corpuscular HGB Conc 34 g/dL 31-36 Red Cell Distribution Width 17 % High 10.5-15 Platelet Count 297 10^3/uL 150-450 Mean Platelet Volume 8 um3 7.4-10.4 Abs Neutrophils 9.8 10^3/uL High 1.5-7.7 Abs Lymphocytes 1.7 10^3/uL 1.0-4.8 Abs Monocytes 1.1 10^3/uL High 0-0.8 Abs Eosinophils 0.1 10^3/uL 0-0.6 Abs Basophils 0.1 10^3/uL 0-0.2 Abs Nucleated RBC 0.01 10^3/uL Granulocyte % 76.7 % 38-83 Lymphocyte % 13.5 % Low 25-47 Monocyte % 8.2 % 1-9 Eosinophil % 0.9 % 0-6 Basophil % 0.7 % 0-2 Nucleated Red Blood Cells % 0.1 Laboratory test finding 09/08/2016 Partial Thrombo Time 31.8 seconds 26.0 -36.3 PTT Urine Culture And Sensitivities SEE RESULT BELOW 14 Inr/Protime 09/08/2016 Inr 1.14 High 0.89-1.11 Comp Metabolic Panel 09/08/2016 Sodium 134 mmol/L 133-145 Potassium 3.2 mmol/L Low 3.5-5.0 Chloride 101 mmol/L 101-111 Co2 Carbon Dioxide 23 mmol/L 22-32 Anion Gap 10 mmol/L 2-11 Glucose 89 mg/dL 70-100 Blood Urea Nitrogen 7 mg/dL 6-24 Creatinine 0.44 mg/dL Low 0.51-0.95 BUN/Creatinine Ratio 15.9 8-20 Calcium 9.2 mg/dL 8.6-10.3 Total Protein 6.9 g/dL 6.4-8.9 Albumin 3.6 g/dL 3.2-5.2 Globulin 3.3 g/dL 2-4 Albumin/Globulin Ratio 1.1 1-3 Total Bilirubin 0.70 mg/dL 0.2-1.0 Alkaline Phosphatase 58 U/L 34-104 Alt 9 U/L 7-52 Ast 17 U/L 13-39 Egfr Non- 169.1 >60 Egfr 217.4 >60 15 Laboratory test 09/04/2016 Urine Culture And SEE RESULT 16 finding Sensitivities BELOW CBC Auto Diff 09/04/2016 White Blood Count 15.5 10^3/uL High 3.5-10.8 Red Blood Count 5.26 10^6/uL 4.0-5.4 Hemoglobin 14.0 g/dL 12.0-16.0 Hematocrit 41 % 35-47 Mean Corpuscular Volume 77 fL Low 80-97 Mean Corpuscular Hemoglobin 27 pg 27-31 Mean Corpuscular HGB Conc 34 g/dL 31-36 Red Cell Distribution Width 17 % High 10.5-15 Platelet Count 302 10^3/uL 150-450 Mean Platelet Volume 8 um3 7.4-10.4 Abs Neutrophils 12.5 10^3/uL High 1.5-7.7 Abs Lymphocytes 1.6 10^3/uL 1.0-4.8 Abs Monocytes 1.1 10^3/uL High 0-0.8 Abs Eosinophils 0.1 10^3/uL 0-0.6 Abs Basophils 0.2 10^3/uL 0-0.2 Abs Nucleated RBC 0.01 10^3/uL Granulocyte % 80.8 % 38-83 Lymphocyte % 10.1 % Low 25-47 Monocyte % 7.0 % 1-9 Eosinophil % 0.8 % 0-6 Basophil % 1.3 % 0-2 Nucleated Red Blood Cells % 0 Type & Screen 09/04/2016 Patient Blood Type A Positive Antibody Screen NEGATIVE Comp Metabolic Panel 09/04/2016 Sodium 135 mmol/L 133-145 Potassium 3.7 mmol/L 3.5-5.0 Chloride 102 mmol/L 101-111 Co2 Carbon Dioxide 23 mmol/L 22-32 Anion Gap 10 mmol/L 2-11 Glucose 111 mg/dL High 70-100 Blood Urea Nitrogen 7 mg/dL 6-24 Creatinine 0.54 mg/dL 0.51-0.95 BUN/Creatinine Ratio 13.0 8-20 Calcium 9.5 mg/dL 8.6-10.3 Total Protein 6.9 g/dL 6.4-8.9 Albumin 4.0 g/dL 3.2-5.2 Globulin 2.9 g/dL 2-4 Albumin/Globulin Ratio 1.4 1-3 Total Bilirubin 0.80 mg/dL 0.2-1.0 Alkaline Phosphatase 57 U/L 34-104 Alt 9 U/L 7-52 Ast 16 U/L 13-39 Egfr Non- 133.5 >60 Egfr 171.7 >60 17 Laboratory test finding 09/04/2016 Lipase 38 U/L 11.0-82.0 HCG 217160.00 mIU/mL 18 Urinalysis Profile 09/04/2016 Urine Color Yellow Urine Appearance Cloudy Urine Specific Brooks 1.024 1.010-1.030 Urine pH 5.0 5-9 Urine Urobilinogen Negative Negative Urine Ketones 1+ Negative Urine Protein Negative Negative Urine Leukocytes 2+ Negative Urine Blood Negative Negative Urine Nitrite Negative Negative Urine Bilirubin Negative Negative Urine Glucose Negative Negative Urine White Blood Cell 3+(>20/hpf) Absent Urine Red Blood Cell Trace(0-2/hpf) Absent Urine Bacteria Absent Absent Urine Squamous Epithelial Cell Present Absent Laboratory test finding 08/24/2016 Point of Care Glucose 82 mg/dL 74-106 19 Age 0108/10/2016 Age 26-29 Diagn See Comment: 20 Adeq See Comment: 21 [email or web address] See Comment: 22 Perfor See Comment: 23 QC Rev See Comment: 24 Comm . Note See Comment: 25 Iglbp See Comment: 26 Reflex See Comment: 27 Laboratory test finding 2016 PDF [id number] SEE IMAGE Laboratory test finding 2016 TSH 1.430 uIU/mL 0.450-4.500 28 Thyroxine (T4) Free, Direct, S 1.22 ng/dL 0.82-1.77 28 Thyroid Antibody & 2016 Thyroid Peroxidase (Tpo) Ab 8 IU/mL 0-34 28 Peroxidase Thyroglobulin Antibody <1.0 IU/mL 0.0-0.9 28, 29 Comprehensive Metabolic 10/06/2012 Glucose 55 mg/dL Low 70-100 30 BUN 13 mg/dL 4-18 30 Creatinine, Serum 0.67 mg/dL 0.50-1.10 30 Sodium 141 mmol/L 136-146 30 Potassium 4.5 mmol/L 3.5-5.3 30 Chloride 105 mmol/L 98-110 30 Carbon Dioxide 28 mmol/L 20-32 30 Albumin 4.5 g/dL 3.5-4.7 30 Protein, Total 7.1 g/dL 6.4-8.3 30 Calcium 9.2 mg/dL 8.4-10.4 30 Alkaline Phosphatase 77 U/L 10-118 30 Sgot (Ast) 17 U/L 3-40 30 SGPT (Alt) 12 U/L 7-50 30 Bilirubin, Total 0.90 mg/dL 0.30-1.20 30 CBC 10/06/2012 WBC 6.8 x10E3/uL 4.3-10.9 30 RBC 5.18 x10E6/uL 3.80-5.30 30 Hemoglobin 14.1 g/dL 11.8-15.8 30 Hematocrit 40.7 % 35.0-47.0 30 MCV 78.6 fl Low 82.0-98.0 30 MCH 27.2 pg Low 27.5-33.5 30 MCHC 34.6 g/dL 32.0-36.0 30 RDW 14.9 % High 11.5-14.5 30 Platelet Count 309 x10E3/uL 130-400 30 MPV 10.2 fl 6.5-10.5 30 Segmented Neutrophils 55.4 % 44.0-74.0 30 Lymphocytes 34.2 % 15.0-45.0 30 Monocytes 7.2 % 2.0-13.0 30 Eosinophils 2.6 % 0.0-6.0 30 Basophils 0.6 % 0.0-2.0 30 Neutrophil Absolute 3.8 x10E3/uL 1.4-7.0 30 Lymphocytes Absolute 2.3 x10E3/uL 1.0-3.4 30 Monocyte Absolute 0.5 x10E3/uL 0.2-1.0 30 Eosinophil Absolute 0.2 x10E3/uL 0.0-0.5 30 Basophil Absolute 0.0 x10E3/uL 0.0-0.2 30 Egfr (Calculated) 10/06/2012 Estimated GFR (CALCULATED) 30 Egfr >60 30, 31 Egfr, -Greenlandic >60 30, 32 1 [employer] Instructor: [id number] 2 Cancelled. Specimen hemolyzed. Unable to perform test requested. Reorder for specimen recollection. [facility] was called for recollect at 2146 on 04/12/17 by [email or web address] 3 Acute inflammation: >10.00 4 Cancelled. Specimen hemolyzed. Unable to perform test requested. Reorder for specimen recollection. [facility] was called for recollect at 2146 on 04/12/17 by [id number] 5 Because ethnic data is not always readily available, this report includes an eGFR for both -Americans and non- Americans. The National Kidney Disease Education Program (NKDEP) does not endorse the use of the MDRD equation for patients that are not between the ages of 18 and 70, are , have extremes of body size, muscle mass, or nutritional status, or are non- or non-. According to the National Kidney Foundation, irrespective of diagnosis, the stage of the disease is based on the level of kidney function: Stage Description GFR(mL/min/1.73 m(2)) 1 Kidney damage with normal or decreased GFR 90 2 Kidney damage with mild decrease in GFR 60-89 3 Moderate decrease in GFR 30-59 4 Severe decrease in GFR 15-29 5 Kidney failure <15 (or dialysis) 6 Consistent with previous results on 04/08/17. 7 [facility] Severe Sepsis and Septic Shock Management Bundle Measure requires all lactic acids initially measuring >2.0 mmol/L be repeated. 8 SEE RESULT BELOW Name: MARYA CAIN : [address]: Erik Simmons MD Acct: [id number] Unit: [id number] AGE: 31 Location: [facility] Re04/03/17 SEX: F Status: REG REF SPEC: [id number] JASMIN: 04/03/175 [facility] DR: Erik Simmons MD REQ: [id number] RECD: 04/03/170246 STATUS: [facility] DR: Kym Sullivan RN CORRECTIONS _ SOURCE: URINE SPDESC: ORDERED: Urine Culture QUERIES: Urine Source: Clean Catch Procedure Result Reported Site Urine Culture Final 04/04/17- 940 ML No growth of clinically significant organisms * ML - MAIN LAB ([facility]) . END OF REPORT * ML=Testing performed at Main Lab DEPARTMENT OF PATHOLOGY, [address] [place] [address] Kentrell Pack M.D. Director [facility] # [id number] 9 Because ethnic data is not always readily available, this report includes an eGFR for both -Americans and non- Americans. The National Kidney Disease Education Program (NKDEP) does not endorse the use of the MDRD equation for patients that are not between the ages of 18 and 70, are , have extremes of body size, muscle mass, or nutritional status, or are non- or non-. According to the National Kidney Foundation, irrespective of diagnosis, the stage of the disease is based on the level of kidney function: Stage Description GFR(mL/min/1.73 m(2)) 1 Kidney damage with normal or decreased GFR 90 2 Kidney damage with mild decrease in GFR 60-89 3 Moderate decrease in GFR 30-59 4 Severe decrease in GFR 15-29 5 Kidney failure <15 (or dialysis) 10 Acute inflammation: >10.00 11 Because ethnic data is not always readily available, this report includes an eGFR for both -Americans and non- Americans. The National Kidney Disease Education Program (NKDEP) does not endorse the use of the MDRD equation for patients that are not between the ages of 18 and 70, are , have extremes of body size, muscle mass, or nutritional status, or are non- or non-. According to the National Kidney Foundation, irrespective of diagnosis, the stage of the disease is based on the level of kidney function: Stage Description GFR(mL/min/1.73 m(2)) 1 Kidney damage with normal or decreased GFR 90 2 Kidney damage with mild decrease in GFR 60-89 3 Moderate decrease in GFR 30-59 4 Severe decrease in GFR 15-29 5 Kidney failure <15 (or dialysis) 12 [facility] Severe Sepsis and Septic Shock Management Bundle Measure requires all lactic acids initially measuring >2.0 mmol/L be repeated. 13 <5.0 Negative 5.0 - 25.0 Indeterminate (Repeat testing recommended after 72 hours) >25.0 Positive Perimenopausal women can display HCG levels of up to 20 mIU/mL 14 SEE RESULT BELOW Name: MARYA CAIN : [address]: Taz Andrade MD Acct: [id number] Unit: [id number] AGE: 31 Location: ED Re09/08/16 SEX: F Status: DEP ER SPEC: [id number] JASMIN: 09/08/16-1046 [facility] DR: Kym BURT REQ: [id number] RECD: 09/08/16 STATUS: KISHORE [facility] DR: Kym Sullivan RN CORRECTIONS Taz Andrade MD _ SOURCE: URINE [facility]: ORDERED: Urine Culture Procedure Result Reported Site Urine Culture Final 09/10/16- 1214 ML No Growth (<1,000 CFU/mL) * ML - MAIN LAB ([facility]) . END OF REPORT * ML=Testing performed at Main Lab DEPARTMENT OF PATHOLOGY, [address] [place] [address] Kentrell Pack M.D. Director [facility] # [id number] 15 Because ethnic data is not always readily available, this report includes an eGFR for both -Americans and non- Americans. The National Kidney Disease Education Program (NKDEP) does not endorse the use of the MDRD equation for patients that are not between the ages of 18 and 70, are , have extremes of body size, muscle mass, or nutritional status, or are non- or non-. According to the National Kidney Foundation, irrespective of diagnosis, the stage of the disease is based on the level of kidney function: Stage Description GFR(mL/min/1.73 m(2)) 1 Kidney damage with normal or decreased GFR 90 2 Kidney damage with mild decrease in GFR 60-89 3 Moderate decrease in GFR 30-59 4 Severe decrease in GFR 15-29 5 Kidney failure <15 (or dialysis) 16 SEE RESULT BELOW Name: MARYA CAIN Ronit : [address]: Earle Caceres MD Acct: [id number] Unit: [id number] AGE: 31 Location: ED Re09/04/16 SEX: F Status: DEP ER SPEC: [id number] JASMIN: 09/04/16 [facility] DR: Earle Caceres MD REQ: [id number] RECD: 09/04/16 STATUS: KISHORE B[facility] DR: Kym Sullivan RN CORRECTIONS _ SOURCE: URINE SPDESC: ORDERED: Urine Culture Procedure Result Reported Site Urine Culture Final 09/06/16- 899 ML No growth of clinically significant organisms * ML - MAIN LAB ([facility]) . END OF REPORT * ML=Testing performed at Main Lab DEPARTMENT OF PATHOLOGY, [address] [place] [address] Kentrell Pack M.D. Director [facility] # [id number] 17 Because ethnic data is not always readily available, this report includes an eGFR for both -Americans and non- Americans. The National Kidney Disease Education Program (NKDEP) does not endorse the use of the MDRD equation for patients that are not between the ages of 18 and 70, are , have extremes of body size, muscle mass, or nutritional status, or are non- or non-. According to the National Kidney Foundation, irrespective of diagnosis, the stage of the disease is based on the level of kidney function: Stage Description GFR(mL/min/1.73 m(2)) 1 Kidney damage with normal or decreased GFR 90 2 Kidney damage with mild decrease in GFR 60-89 3 Moderate decrease in GFR 30-59 4 Severe decrease in GFR 15-29 5 Kidney failure <15 (or dialysis) 18 <5.0 Negative 5.0 - 25.0 Indeterminate (Repeat testing recommended after 72 hours) >25.0 Positive Perimenopausal women can display HCG levels of up to 20 mIU/mL 19 Automated Manufacturing Instructor: [id number] SCHUYLER SIGALA 20 NEGATIVE FOR INTRAEPITHELIAL LESION AND MALIGNANCY. THIS SPECIMEN WAS RESCREENED PART OF OUR MAINTENANCE MECHANIC TELEPHONE PROGRAM. 21 Satisfactory for evaluation. No endocervical component is identified. The absence of an endocervical component was confirmed by an additional screening evaluation. 22 Z12.4 23 Vincenzo Goodwin, Retread Supervisor (ASCP) 24 Siva Briones, Retread Supervisor (ASCP) 25 The Pap smear is a screening test designed to aid in the detection of premalignant and malignant conditions of the uterine cervix. It is not a diagnostic procedure and should not be used as the sole means of detecting cervical cancer. Both false-positive and false-negative reports do occur. 26 This liquid based ThinPrep(R) pap test was screened with the use of an image guided system. 27 The HPV DNA reflex criteria were not met with this specimen result therefore, no HPV testing was performed. 28 1POUR OFF SERUM 29 Thyroglobulin Antibody measured by [employer] 30 1SST,1LAV 31 >59 mL/min/1.73m2 32 >59 mL/min/1.73m2 Note: Persistent reduction for 3 months or more in an eGFR <60 mL/min/1.73m2 defines CKD. Patients with eGFR values >=60 mL/min/1.73m2 may also have CKD if evidence of persistent proteinuria is present. Additional information may be found at www.kidney.org/professionals/kdoqi. Procedures Date CPT Code Description Status 03/05/2018 93848 Brief Emotional/Behav Assessment W/ Scoring Doc Per Completed Standard Inst Encounters Type Date Location Provider CPT E/M Dx Office Visit 03/05/2018 1:00p [facility] BETHANY Reese 32009 M54.89 F41.9 Office Visit 09/28/2017 11:45a Main Office BETHANY Reese 64131 M54.89 M54.16 Office Visit 07/04/2017 9:30a Main Office Kym Sullivan [facility] 82320 M54.89 M54.16 Office Visit 01/19/2017 9:20a Main Office Padmini Quigley M.D. 98603 L50.0 Office Visit 10/25/2016 1:00p Main Office Kym Sullivan, [facility] 76891 L30.9 Office Visit 2016 1:00p Main Office Kym Sullivan, [facility] 51971 Z01.411 R63.5 Office Visit 10/28/2012 1:30p [facility] Kym Sullivan, [facility] [address]1142 789.09 053.9 Office Visit 10/06/2012 8:00a [facility] Kym Sullivan, [facility] 69756 564.1 Plan of Care 06/17/2018 - Mae Gilmore-[id number] Acute bronchitis, unspecifiedComments :does not like to use cough medsAllNew Medication:Proair HFA 108(90 Base) mcg/ ActComments:~B_~U_Medication Management~b_~u_ Patient Understands medications she's taking? Yes No no rx meds Are there Barriers to Adherence? Yes No na Has the patient been asked about herbal supplements and therapies, and OTC meds? Yes No ~B_~U_Care Plan~b_~u_1. Patient has been queried about patient's goals/preferences and functional/lifestyle goals at relevant visits. If relevant, describe: na2. Treatment goals as explained to the patient: abovesx resolution 3. Are there barriers to meeting treatment goals? Yes No If Yes, please describe:wants antibx, does not believe anything else will help 4. Self-Management goals as described to the patient: Yes No This is very likely a viral illness, I do not see any evidence of a bacterial infection I suggest supportive rx : rest , soothing liqs, honey , ok to try dm cough med, use it after nursing , rest your voice and continue vaporizer f/u if fever or worsening sx expect some improvement through weektrial proair by request , has used before but does not recall effectiveness
[2018-07-15 12:11] VITALS: BP 128/75
--- NOTE | 2018-07-15 12:35 | UC ---
Respiratory Complaint HPI - HPI Summary HPI Summary: About one week of productive cough and congestion. Cough is keeping her up at night. No fever, nausea/vomiting. Mild sore throat. No ear pain. - History of Current Complaint Chief Complaint: UCGeneralIllness Stated Complaint: SORE THROAT Time Seen by Provider: 07/15/18 12:08 Hx Obtained From: Patient Hx Last Menstrual Period: 07/02/18 Onset/Duration: Gradual Onset, Lasting Days, Still Present Timing: Constant Severity Initially: Mild Severity Currently: Moderate Pain Intensity: 0 Pain Scale Used: 0-10 Numeric Character: Cough: Productive Aggravating Factors: Nothing Alleviating Factors: Nothing Associated Signs And Symptoms: Positive: URI, Nasal Congestion, Hoarseness. Negative: Dyspnea, Fever, Chills, Pleuritic Chest Pain, Wheezing - Allergies/Home Medications Allergies/Adverse Reactions: Allergies Allergy/AdvReac Type Severity Reaction Status Date / Time No Known Allergies Allergy Verified 07/15/18 12:04 PMH/Surg Hx/FS Hx/Imm Hx Previously Healthy: Yes - Surgical History Surgical History: Yes Surgery Procedure, Year, and Place: left ovary removed 1987 - Family History Known Family History: Positive: Hypertension, Diabetes, Other - [place] - Social History Alcohol Use: None Substance Use Type: None Smoking Status (MU): Never Smoked Tobacco Have You Smoked in the Last Year: No - Immunization History Most Recent Influenza Vaccination: 2017 Most Recent Tetanus Shot: unk Most Recent Pneumonia Vaccination: never Review of Systems All Other Systems Reviewed And Are Negative: Yes Constitutional: Positive: Negative Eyes: Positive: Drainage, Eye Redness ENT: Positive: Sore Throat, Nasal Discharge Respiratory: Positive: Cough Cardiovascular: Positive: Negative Gastrointestinal: Positive: Negative Physical Exam Triage Information Reviewed: Yes Appearance: Well-Appearing, No Pain Distress, Well-Nourished Vital Signs: Initial Vital Signs Temp 97.9 F 07/15/18 12:05 Pulse 92 07/15/18 12:05 Resp 18 07/15/18 12:05 BP 128/75 07/15/18 12:05 Pulse Ox 96 07/15/18 12:05 Vital Signs Reviewed: Yes Eyes: Positive: Conjunctiva Inflamed - bilateral, Discharge - clear drainage both eyes, Other: - PERRL, EOMI ENT: Positive: Hearing grossly normal, Pharynx normal, TMs normal, Hoarse voice Neck: Positive: Supple, Nontender, No Lymphadenopathy Respiratory Exam: Normal Cardiovascular Exam: Normal Abdomen Description: Positive: Soft Musculoskeletal: Positive: No Edema Neurological: Positive: Alert Psychological: Positive: Age Appropriate Behavior Skin: Negative: Rashes UC Diagnostic Evaluation - Laboratory O2 Sat by Pulse Oximetry: 96 Respiratory Course/Dx - Differential Dx/Diagnosis Provider Diagnosis: Acute bronchitis, Bilateral conjunctivitis Discharge - Sign-Out/Discharge Documenting (check all that apply): Patient Departure All imaging exams completed and their final reports reviewed: No Studies - Discharge Plan Condition: Stable Disposition: HOME Prescriptions: Azithromycin 500 mg PO DAILY #5 tab Ciprofloxacin 0.3% OPTH.DAYAMI* [Cipro 0.3% Opth*] 1 drop BOTH EYES Q4H #1 btl Codeine Phosphate/Guaifenesin [Codeine-Guaifen 10-100 mg/5 ml] 5 - 10 ml PO Q6H PRN #150 ml MDD 40ML PRN Reason: Cough Patient Education Materials: Acute Bronchitis (ED), Conjunctivitis (ED) Referrals: Kym Sullivan NP [Primary Care Provider] - If Needed Additional Instructions: YOUR SYMPTOMS MAY BE VIRALLY MEDIATED BUT GIVEN THE LENGTH OF TIME YOU HAVE BEEN ILL WE WILL COVER YOU WITH ANTIBIOTICS. IF YOU START THE MEDICINE BE SURE TO TAKE IT FOR THE FULL COURSE. REST, HYDRATE, OTC MEDS NEEDED. WILL ALSO TREAT WITH COUGH MEDICINE. SEEK FOLLOW-UP WITH YOUR PCP IF YOU ARE NOT IMPROVING OVER THE NEXT 1-2 WEEKS. - Billing Disposition and Condition Condition: STABLE Disposition: Home
== END 2018-07-15 12:30 | disposition home or self-care (01) ==
LOC: UCEAST 11:11
DX: J20.9 Acute bronchitis, unspecified (principal); H10.9 Unspecified conjunctivitis; J02.9 Acute pharyngitis, unspecified
CPT/HCPCS: 99212; G0463

== ENCOUNTER 2018-10-27 22:21 | Emergency (ER) | payer OTHER ==
--- OUTSIDE RECORDS SUMMARY | 2018-10-27 22:46 | XMS REPORT | Continuity of Care Document ---
:1985 External Reference #:[id number] Author Name Mary Mcnair MD Address [address] [place] [address] Care Team Providers Name Role Phone Kym Sullivan [employer] Primary Care Physician Unavailable Payers Date Identification Numbers Payment Provider Subscriber Policy Number: [id number] [facility] Marya Cain PayID: [id number] [address] [address] [place] [address] Advance Directives Description No Information Available Problems Date Description Provider Status Onset: 09/13/2016 Deep venous thrombosis of lower extremity BRANDEE Flaherty Active Note: on lovenox Family History Date Family Member(s) Observation Comments Father Prostate Cancer Mother Liver Cancer Mother due to Esophagus Cancer () Children 2 First Daughter A&W Second Daughter A&W First Brother A&W First Brother Adopted First Sister A&W Paternal Grandfather Hypertension Paternal Grandmother due to Unknown Causes () Maternal Grandfather due to Unknown Causes () Maternal Grandmother due to Cancer, Brain () Social History Type Date Description Comments Sex Unknown Raised by Biological Mother & Father Order Oldest child of 2 Childhood Environment Normal Education Highest level completed, Bachelor's Degree Marital Status Single Lives With Boyfriend Lives With Daughters Diet Healthy, Well Balanced Sleep Typically sleeps 7 hours a night Smoke-Free Home is smoke-free Pets None 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 Tobacco Use Start: Unknown Never Smoked Cigarettes ETOH Use Denies alcohol use Recreational Drug Use Denies Drug Use Tobacco Use Start: Unknown Patient has never smoked Smoking Status Reviewed: 10/21/18 Patient has never smoked Exercise Type/Frequency Exercises regularly Seat Belt/Car Seat Always uses seat belt Currently Active Patient is currently sexually active Contraceptive Methods Past methods include ring (Nuva) STD's No STD History Allergies, Adverse Reactions, Alerts Description No Known Drug Allergies Medications Medication Date Status Form Strength Qnty SIG Indications Ordering Provider Tylenol / Active Unknown 0000 19 / Active Unknown 0000 Lovenox / Active Solution 40mg/0.4ML Unknown 0000 Ranitidine 02/21/ Hx Tablets 150mg 60tabs take 1 tab Phaelon HCL 2017 - by mouth 2 MD Tabby 04/18/ times daily 2016 for heartburn Keflex 09/13/ Hx Capsules 500mg 21caps 1 by mouth Leda 2016 - three times Jump, 09/20/ a day ANP-C 2016 Diclegis 08/23/ Hx Tablets DR 10-10mg 60tabs 2 pills by Danielle 2016 - mouth at [place], 12/27/ bedtime CNM 2017 Ortho Evra 02/14/ Hx Patches 150-20mcg/ 2Month 1patch yousif Calvillo 2011 - Weekly 24HR s week Julisa 08/23/ Jonelle 2016 Nuvaring / Hx Ring 0.12-0.015 3units as directed Unknown 0000 - mg/24HR 2011 Sertraline / Hx Tablets 50mg 30tabs 1 po qd Unknown HCL 0000 - 2016 Ultracet / Hx Tablets 37.5-325mg Unknown 0000 - 2016 Iron / Hx Tablets 325(65Fe) 1 by mouth Unknown 0000 - mg every day 2018 Medications Administered in Office Medication Date Status Form Strength Qnty SIG Indications Ordering Provider PT SCRN Tbco Administered Injection Phaelon Id as Non User 019 MD Tabby Immunizations CPT Code Status Date Vaccine Lot # [id number] Given 03/07/2017 Tetnus, Diptheria Toxoids And Acellular Pertussis, [id number] PT > 7Yrs Old Vital Signs Date Vital Result Comment 10/21/2018 8:21am BP Systolic 120 mmHg BP Diastolic 76 mmHg Height 64 inches 5'4" Weight 161.00 lb BMI (Body Mass Index) 27.6 kg/m2 Last Menstrual Period [id number] 4 Parity 2 05/09/2017 2:00pm BP Systolic 118 mmHg BP Diastolic 66 mmHg Height 64 inches 5'4" Weight 142.00 lb BMI (Body Mass Index) 24.4 kg/m2 3 Parity 2 04/12/2017 3:26pm BP Systolic 108 mmHg BP Diastolic 58 mmHg Height 64 inches 5'4" Weight 145.00 lb BMI (Body Mass Index) 24.9 kg/m2 Last Menstrual Period [id number] 3 Parity 1 09/13/2016 1:46pm BP Systolic 116 mmHg BP Diastolic 78 mmHg Height 64 inches 5'4" Weight 152.00 lb BMI (Body Mass Index) 26.1 kg/m2 Last Menstrual Period 5079297 3 Parity 1 02/15/2012 9:17am BP Systolic 96 mmHg BP Diastolic 60 mmHg Height 54 inches 4'6" Weight 120.00 lb BMI (Body Mass Index) 28.9 kg/m2 Last Menstrual Period 3934573 0 Parity 0 Results Test Date Facility Test Result H/L Range Note Laboratory test 10/20/2018 [facility] HCG 194.17 [address] [place] [address] mIU/mL [phone] Laboratory test 03/19/2017 [facility] B Strep SEE RESULT 2, [address] [place] [address] Culture Screen BELOW [phone] Laboratory test 01/23/2017 [facility] Glucose 1 HR 118 mg/dL N 70-160 [address] [place] [address] Post Prandial [phone] CBC With No Diff 01/23/2017 [facility] White Blood 12.1 High 3.5-10.8 [place] [address] Count 10^3/uL [phone] Red Blood Count 4.38 10^6/uL N 4.0-5.4 Hemoglobin 11.2 g/dL Low 12.0-16.0 Hematocrit 34 % Low 35-47 Mean Corpuscular Volume 78 fL Low 80-97 Mean Corpuscular Hemoglobin 26 pg Low 27-31 Mean Corpuscular HGB Conc 33 g/dL N 31-36 Red Cell Distribution Width 17 % High 10.5-15 Platelet Count 290 10^3/uL N 150-450 Mean Platelet Volume 8 um3 N 7.4-10.4 GC/Chlamydia Dna 11/29/2016 [facility] Chlamydia Negative [place] [address] trachomatis Rna [phone] Neisseria gonorrhoeae (GC) Rna Negative N Negative Sequential Integreated SCRN 2 [place] 11/02/2016 [facility] Interpretation SEE BELOW 5 Risk For Ontd <1:5000 Age Risk Down Syndrome 1:790 STORM Down Syndrome Risk <1:5000 <1:270 STORM Trisomy 18 Risk <1:5000 <1:100 Calculated Gestational Age 16.9 6 Afp,Serum 43.5 ng/mL Afp Mom 1.21 7 HCG,Serum 32.0 IU/mL HCG Mom 0.95 Estriol,Free 1.03 ng/mL Estriol Mom 1.00 Inhibin A,Dimeric 124 pg/mL Inhibin A Mom 0.73 Jaior-A 1367.4 ng/mL 8 Jairo-A Mom 1.39 NT Mom 0.88 9 Referring Physician Name JULISA Referring Physician Phone [phone] Referring Physician Npi NG Specimen # From Part 1 [id number] Date Of 1985 Collection Date 11/02/2016 Maternal Weight 152 lbs Est'd Date Of Delivery 04/12/2017 Nuchal Translucency 1.3 mm [place] Rump Length 66 mm Ultrasound Date 10/04/2016 Nasal Bone NOT GIVEN Mother's Ethnic Origin Insulin Depend Diabetic N Repeat Specimen N Number Of Fetuses 1 HX Of Neural Tube Defects N Twin B Nasal Bone NA 10 Urine Culture And 10/04/2016 [facility] Urine Culture SEE RESULT 11 [place] [address] BELOW [phone] Hemoglobinopathy 10/04/2016 [facility] Erythrocyte 4.77 3.80 Evaluation Count Mill/uL -5.1 0 Hemoglobin 12.6 g/dL 11.7-15.5 Hematocrit 39.6 % 35.0-45.0 MCV 83.0 FL 80.0-100.0 MCH 26.4 pg Low 27.0-33.0 RDW 17.7 % High 11.0-15.0 Hemoglobin A 59.9 % Low >96.0 Hemoglobin F 0.0 % <2.0 Hemoglobin A2 2.8 % 1.8-3.5 Hemoglobin C 37.3 % High 0.0 Interpretation see note 12 Sequential Integrated SCRN 1 [place] 10/04/2016 [facility] Interpretation SEE BELOW 13 Age Risk Down Syndrome 1:590 STORM Down Syndrome Risk IN PROCESS <1:50 STORM Trisomy 18 Risk IN PROCESS <1:100 Calculated Gestational Age 12.7 14 Jairo-A 1367.4 ng/mL 15 Jairo-A Mom 1.39 HCG,Serum 150.3 IU/mL HCG Mom 1.37 NT Mom 0.88 16 Referring Physician Name SURENDRA 17 Referring Physician Phone [phone] Referring Physician Npi [id number] Date Of 1985 20 Collection Date 10/04/2016 21 Maternal Weight 152 lbs 22 Est'd Date Of Delivery 04/12/2017 23 KHUSHBU Determined By US 24 Mother's Ethnic Origin A 25 Number Of Fetuses 1 26 Insulin Depend Diabetic N 27 Repeat Specimen N 28 HX Of Neural Tube Defects N 29 Prev Down Synd N 30 Donor Egg N 31 Donor Age:Egg Retrieval NA 32 Ultrasound Date 10/04/2016 33 Oral Surgery Physician's Name AXEL 34 NTQR Oral Surgery Physician Id# [id number] NTQR Location Id# [id number] NTQR Reading Phys Id# [id number] FMF Oral Surgery Physician Id# NA 38 [place] Rump Length 66 mm 39 Nuchal Translucency 1.3 mm 40 Nasal Bone NOT GIVEN 41 If Twins NA 42 Twin B CRL NA mm 43 Twin B NT NA mm 44 Twin B Nasal Bone NA 45 Urine Culture 09/13/2016 [facility] Urine SEE RESULT 46 [place] [address] Culture BELOW Sensitivities [phone] Lead 09/13/2016 [facility] Lead <1.0 g/dL N 0.0-4.9 47 [place] [address] [phone] HIV 1/2 AB 09/13/2016 [facility] HIV 1 2 Nonreactive N Nonreactive [address] [place] [address] Antibody [phone] Type And Screen 09/13/2016 [facility] [place] [address] Screen [phone] Patient Blood Type A Positive N CBC With No 09/13/2016 [facility] White Blood 9.8 10^3/uL N 3.5-10.8 [place] [address] Count [phone] Red Blood Count 4.54 10^6/uL N 4.0-5.4 Hemoglobin 11.9 g/dL Low 12.0-16.0 Hematocrit 35 % N 35-47 Mean Corpuscular Volume 78 fL Low 80-97 Mean Corpuscular Hemoglobin 26 pg Low 27-31 Mean Corpuscular HGB Conc 34 g/dL N 31-36 Red Cell Distribution Width 16 % High 10.5-15 Platelet Count 438 10^3/uL N 150-450 Mean Platelet Volume 7 um3 Low 7.4-10.4 PNL No 09/13/2016 [facility] Rubella Screen Immune IU/ mL N Immune 49 Urine [place], [place] [address] [phone] Hemoglobin A1c 5.1 % N Less than 6.0 50 Hepatitis B Surface Ag Nonreactive N Nonreactive 51 Syphillis Igg W/Reflex RPR Nonreactive N Nonreactive 52 Laboratory test 10/03/2015 [facility] HCG 1.47 mIU/mL N [address] [place] [address] [phone] Laboratory test 09/22/2015 [facility] HCG 11.57 mIU/ mL N [address] [place] [address] [phone] Laboratory test 09/21/2015 [facility] HCG 30.90 mIU/ mL N [address] [place] [address] [phone] Laboratory test 09/15/2015 [facility] HCG 61.31 mIU/ mL N [address] [place] [address] [phone] 1 <5.0 Negative 5.0 - 25.0 Indeterminate (Repeat testing recommended after 72 hours) >25.0 Positive Perimenopausal women can display HCG levels of up to 20 mIU/mL 2 [id number] SEE RESULT BELOW Name: MARYA CAIN : [address]: Mary Mcnair MD Acct: [id number] Unit: [id number] AGE: 31 Location: [facility] Re03/19/17 SEX: F Status: REG REF SPEC: [id number] JASMIN: 03/19/17-[address]: Mary Mcnair MD REQ: [id number] RECD: 03/20/17-6 STATUS: COMP _ SOURCE: MEDINA/DARLIN/RE SPDESC: ORDERED: Grp B Strp Scrn COMMENTS: [id number] QUERIES: Is Patient Penicillin Allergic? N Is patient penicillin allergic and/or sensitivities needed? N Provider Requisition # C77#[id number] Procedure Result Reported Site Group B Strep Culture Screen Final 03/22/17- 1135 ML Group B Strep Screen Negative * ML - MAIN LAB ([facility]) . END OF REPORT * ML=Testing performed at Main Lab DEPARTMENT OF PATHOLOGY, [address] [place] [address] Kentrell Pack M.D. Director [facility] # [id number] SCREEN NEGATIVE FOR OPEN NTD, DOWN SYNDROME AND TRISOMY 18. NT WAS USED IN THE RISK CALCULATIONS. 6 [place] rump length (CRL) was used to calculate gestational age. KHUSHBU, if provided, was not used for gestational age dating. 7 Reference Range: <2.50 IDD <1.90 TWINS <4.00 TWINS IDD <3.50 TRIPLETS <4.50 8 This test was performed using a kit that has not been cleared or approved by the FDA. The analytical performance characteristics of this test have been determined by [facility]. This test should not be used for diagnosis without confirmation by other medically established means. 9 The Sequential Integrated Screen combines JAIRO-A and hCG with or without a nuchal translucency measurement in the first trimester with AFP, unconjugated estriol, intact hCG and Inhibin A in the second trimester. This provides a useful screening test for detection of open neural tube defects, Down syndrome and Trisomy 18. It should be noted that normal results can never guarantee the of a normal baby and that 2 to 3 percent of newborns have some type of physical or mental defect, many of which are undetectable through any known diagnostic technique. Interpretation reviewed by: Gogo Garcia, Ph.D., [facility]. This is a screening test, not a diagnostic test. This risk assessment is based on demographic data provided by the ordering physician. Please notify the laboratory promptly if any data are incorrect. If you have questions concerning this report: For clinical consultation, call ; For technical questions, call ext [phone]; For recalculations, fax to [phone]. 10 For additional information, please refer to [email or web address]/FAQ23 (This link is provided for informational/educational purposes only.) 11 SEE RESULT BELOW Name: MARYA ACIN : [address]: Mary Mcnair MD Acct: [id number] Unit: [id number] AGE: 31 Location: [facility] Re10/04/16 SEX: F Status: REG REF SPEC: [id number] JASMIN: 10/04/16-[address] [facility] [address]: Mary Mcnair MD REQ: [id number] RECD: 10/04/166975 STATUS: COMP _ SOURCE: URINE SPDESC: ORDERED: Urine Culture COMMENTS: [id number] Urine Source: Random Procedure Result Reported Site Urine Culture Final 10/05/16- 1623 ML No growth of clinically significant organisms * ML - [facility] ([facility]) . END OF REPORT * ML=Testing performed at Main Lab DEPARTMENT OF PATHOLOGY, [address] [place] [address] Kentrell Pack M.D. Director [facility] # [id number] 12 HETEROZYGOUS FOR HEMOGLOBIN C (C TRAIT) By high-performance liquid chromatography (HPLC), there is a variant peak in the C window. This is confirmed as hemoglobin C by electrophoresis. The sickle solubility test is negative. People with uncomplicated Hb C trait usually have a normal CBC, reticulocyte count, and normal or target red cell morphology. Some may have slight microcytosis. If alpha-thalassemia trait is also present and there is no iron deficiency, the level of HbC is usually less than 35%. Hemoglobin C is thought to have originated in [place]. In [place], the prevalence rate is as high as 40%. It is found in individuals of descent in the [place] (3.5% prevalence rate) and the [place] (2%). Hemoglobin C Trait is of no clinical significance except in counseling prospective parents. This is because of the possibility of sickle cell/ hemoglobin C disease if one parent has sickle cell trait and the other HbC trait. Results were reviewed and interpreted by Yash Dozier M.D. If additional information is needed, please call [phone]. 13 This patient's risk does not exceed the first trimester cut-off for Down syndrome or trisomy 18. The integrated screen calculation is awaiting the second trimester sample. NT WAS USED IN THE RISK CALCULATIONS. Thank you for submitting this patient's Part 1 specimen. These first trimester values will be incorporated with the second trimester values as part of the integrated testing process. Please submit the Part 2 specimen between 10/20/2016-12/14/2016 (15.0 and 22.9 weeks gestation) with 10/20/2016-11/02/2016 (15.0 - 16.9 weeks gestation) being optimal. When submitting Part 2, please include the following Specimen # from Part 1: [id number] 14 [place] rump length (CRL) was used to calculate gestational age. KHUSHBU, if provided, was not used for gestational age dating. 15 This test was performed using a kit that has not been cleared or approved by the FDA. The analytical performance characteristics of this test have been determined by [facility]. This test should not be used for diagnosis without confirmation by other medically established means. 16 Interpretation reviewed by: Kevyn Olmstead, Ph.D., [facility] This is a screening test, not a diagnostic test. This risk assessment is based on demographic data provided by the ordering physician. Please notify the laboratory promptly if any data are incorrect. If you have questions concerning this report: For clinical consultation, call ; For technical questions, call ext [phone]; For recalculations, fax to . For additional information, please refer to [email or web address]-DISC/faq/FAQ89 (This link is being provided for informational/educational purposes only.) 17 For additional information, please refer to http://[email or web address].M-DISC/faq/FAQ89 (This link is being provided for informational/educational purposes only.) 18 For additional information, please refer to http://[email or web address]-DISC/faq/FAQ89 (This link is being provided for informational/educational purposes only.) 19 For additional information, please refer to http://[email or web address].M-DISC/faq/FAQ89 (This link is being provided for informational/educational purposes only.) 20 For additional information, please refer to http://Social Intelligence/faq/FAQ89 (This link is being provided for informational/educational purposes only.) 21 For additional information, please refer to http://Social Intelligence/faq/FAQ89 (This link is being provided for informational/educational purposes only.) 22 For additional information, please refer to http://[employer]/faq/FAQ89 (This link is being provided for informational/educational purposes only.) 23 For additional information, please refer to http://[employer] Intelligence/faq/FAQ89 (This link is being provided for informational/educational purposes only.) 24 For additional information, please refer to http://[employer] Intelligence/faq/FAQ89 (This link is being provided for informational/educational purposes only.) 25 For additional information, please refer to http://Social Intelligence/faq/FAQ89 (This link is being provided for informational/educational purposes only.) 26 For additional information, please refer to http://[employer] Intelligence/faq/FAQ89 (This link is being provided for informational/educational purposes only.) 27 For additional information, please refer to http://Social Intelligence/faq/FAQ89 (This link is being provided for informational/educational purposes only.) 28 For additional information, please refer to http://Social Intelligence/faq/FAQ89 (This link is being provided for informational/educational purposes only.) 29 For additional information, please refer to http://Social Intelligence/faq/FAQ89 (This link is being provided for informational/educational purposes only.) 30 For additional information, please refer to http://Social Intelligence/faq/FAQ89 (This link is being provided for informational/educational purposes only.) 31 For additional information, please refer to http://Social Intelligence/faq/FAQ89 (This link is being provided for informational/educational purposes only.) 32 For additional information, please refer to http://Social Intelligence/faq/FAQ89 (This link is being provided for informational/educational purposes only.) 33 For additional information, please refer to http://Social Intelligence/faq/FAQ89 (This link is being provided for informational/educational purposes only.) 34 For additional information, please refer to http://Social Intelligence/faq/FAQ89 (This link is being provided for informational/educational purposes only.) 35 For additional information, please refer to http://Social Intelligence/faq/FAQ89 (This link is being provided for informational/educational purposes only.) 36 For additional information, please refer to http://Social Intelligence/faq/FAQ89 (This link is being provided for informational/educational purposes only.) 37 For additional information, please refer to http://Social Intelligence/faq/FAQ89 (This link is being provided for informational/educational purposes only.) 38 For additional information, please refer to http://Social Intelligence/faq/FAQ89 (This link is being provided for informational/educational purposes only.) 39 For additional information, please refer to http://Social Intelligence/faq/FAQ89 (This link is being provided for informational/educational purposes only.) 40 For additional information, please refer to http://Social Intelligence/faq/FAQ89 (This link is being provided for informational/educational purposes only.) 41 For additional information, please refer to http://Social Intelligence/faq/FAQ89 (This link is being provided for informational/educational purposes only.) 42 For additional information, please refer to http://Social Intelligence/faq/FAQ89 (This link is being provided for informational/educational purposes only.) 43 For additional information, please refer to http://Social Intelligence/faq/FAQ89 (This link is being provided for informational/educational purposes only.) 44 For additional information, please refer to http://Social Intelligence/faq/FAQ89 (This link is being provided for informational/educational purposes only.) 45 For additional information, please refer to http://PerSay.[employer]/faq/KHQ89 (This link is being provided for informational/educational purposes only.) 46 SEE RESULT BELOW Name: MARYA CAIN Ronit : [address]: Leda Whitney Acct: [id number] Unit: [id number] AGE: 31 Location: [facility] Re09/13/16 SEX: F Status: REG REF SPEC: [id number] JASMIN: 09/13/16-[address] [facility] [address]: Fabienne Medrano NP REQ: [id number] RECD: 09/13/16 STATUS: COMP _ SOURCE: URINE SPDESC: ORDERED: Urine Culture COMMENTS: [id number] Urine Source: Random Procedure Result Reported Site Urine Culture Final 09/15/16- 1005 ML No growth of clinically significant organisms * ML - MAIN LAB ([facility]) . END OF REPORT * ML=Testing performed at Main Lab DEPARTMENT OF PATHOLOGY, [address] [place] [address] Kentrell Pack M.D. Director [facility] # [id number] 47 ADDITIONAL INFORMATION Testing performed by Inductively Coupled Plasma-Mass Spectrometry (ICP-MS). This test was developed and its performance characteristics determined by [facility] in a manner consistent with CLIA requirements. This test has not been cleared or approved by the U.S. Food and Drug Administration. 48 It is recognized that currently available assays for the detection of antibodies to HIV-1 and/or HIV-2 may not detect all infected individuals. HIV antibodies may be undetectable in some stages of the infection and in some clinical conditions. The performance of this assay has not been established for populations of infants or children. Assayed by Chemiluminescence Microparticle Immunoassay on the Siemens Advia Centaur CP. Values obtained with different methods or kits cannot be used interchangeably.The diagnostic specificity of the ADVIA Centaur 1/O/2 Enhanced assay in the low risk population was 99.90% (6052/6058) with a 95% confidence interval of 99.78 to 99.96%. 49 [id number] 50 Therapeutic target for the treatment of diabetes Mellitus patients is <7% HBA1C, and in selective patients <6.0%.Please refer to [place] [employer] Diabetic care guidelines for further information. 51 [id number] 52 Warning: A positive result is not useful for establishing a diagnosis of syphilis. In most situations, such a result may reflect a prior treated infection; a negative result can exclude a diagnosis of syphilis except for incubating or early primary disease. 53 <5.0 Negative 5.0 - 25.0 Indeterminate (Repeat testing recommended after 72 hours) >25.0 Positive Perimenopausal women can display HCG levels of up to 20 mIU/mL 54 <5.0 Negative 5.0 - 25.0 Indeterminate (Repeat testing recommended after 72 hours) >25.0 Positive Perimenopausal women can display HCG levels of up to 20 mIU/mL 55 <5.0 Negative 5.0 - 25.0 Indeterminate (Repeat testing recommended after 72 hours) >25.0 Positive Perimenopausal women can display HCG levels of up to 20 mIU/mL 56 <5.0 Negative 5.0 - 25.0 Indeterminate (Repeat testing recommended after 72 hours) >25.0 Positive Perimenopausal women can display HCG levels of up to 20 mIU/mL Procedures Date Code Description Status 10/20/2018 06619 Echography Transvaginal Completed 04/07/2017 20174 Obstetric Care Routine Completed 03/29/2017 78786 Non-Stress Test Completed 03/19/2017 69080 Echography Uterus Limited Completed 02/04/2017 61952 Non-Stress Test Completed 01/23/2017 74791 Echography Uterus Follow-Up Or Repeat Completed 11/29/2016 59206 Echography Uterus Complete Completed 10/04/2016 28865 Nuchal Translucency Ultrasound /First Gestation Completed Encounters Type Date Location Provider Dx Diagnosis Office Visit 10/21/2018 [facility] Mary Mcnair MD O26.91 related 8:30a conditions, unspecified, first trimester Office Visit 02/04/2017 [facility] Mary Mcnair MD R10.11 Right upper quadrant 9:16p pain O26.93 related conditions, unspecified, third trimester Office Visit 09/10/2015 8:39a Non - Surgical Mary Mcnair, R10.31 [facility] quadrant pain Office Visit 02/15/2012 9:00a [facility] Corbin Calvillo 789.9 Abdomen & Pelvis Jonelle Egan Symptoms Other V25.8 Contraceptive Management Spec Other Plan of Treatment Future Appointment(s):11/12/2018 1:45 pm - Mary Mcnair MD at [facility]07/2018 1:15 pm - Ultrasounds at [facility]
--- OUTSIDE RECORDS SUMMARY | 2018-10-27 22:46 | XMS REPORT | Continuity of Care Document ---
:1985 External Reference #:[id number] Author Name Padmini Quigley M.D. Address [address] [place] [address] Care Team Providers Name Role Phone Padmini Quigley Care Team Information Tube Wrapper Unavailable Padmini Quigley Primary Care Physician Unavailable Payers Date Identification Numbers Payment Provider Subscriber Effective: 2016 Policy Number: [id number] [facility] Marya Cain PayID: [id number] [address] [address] [place] [address] Effective: 2016 Policy Number: [id number] Medicaid KRISTIN Cain Expires: 2016 Group Name: Medicaid [address] PayID: [id number] [facility] [place] [address] Advance Directives Description No Information Available Problems Description No Information Family History Date Family Member(s) Observation Comments General Diabetes Mellitus, II Father 64 First Brother 34 First Sister 31 Maternal Grandmother due to brain ca () Social History Type Date Description Comments Sex Unknown Marital Status Civil Partner Lives With Daughters Lives With Male Partner Diet Healthy, Well Balanced Sleep Reports normal sleep activity 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 Tobacco Use Start: Unknown Never Smoked Cigarettes ETOH Use Denies alcohol use Recreational Drug Use Never Used Drugs Tobacco Use Start: Unknown Patient has never smoked Smoking Status Reviewed: Patient has never 10/21/18 smoked Exercise Type/Frequency Exercises regularly Currently Active Patient is currently sexually active Contraceptive Methods Current methods include condoms Contraceptive Methods Past methods include ring (Nuva) Allergies, Adverse Reactions, Alerts Description No Known Drug Allergies Medications Active Medications SIG Qnty Indications Ordering Provider Date Lovenox Unknown 40mg/0.4ML Solution History Medications No Active Medications Unknown 07/01/2018 - 10/21/2018 Proair HFA 2 puffs every 4 8.500gm [place] 06/17/2018 - 108(90Base) hours as needed Anthony, 07/01/2018 mcg/Act Aerosol for cough/wheeze Afnp-C No Active Medications Unknown 03/05/2018 - 06/17/2018 Naproxen 1 by mouth twice a 60tabs M54.89 Mcd[facility]ough 09/28/2017 - 500mg Tablets day with food [facility] 03/05/2018 Cyclobenzaprine HCL one to two tablet 30tabs M54.89 Mcdonough 09/28/2017 - 5mg every night at [facility] 03/05/2018 Tablets bedtime as needed Massage Therapy eval/treat back M54.89 Mcdonough 07/04/2017 - pain [facility] 03/05/2018 Physical Therapy eval/treat back M54.89 Mcdonough 07/04/2017 - pain [facility] 03/05/2018 No Active Medications Unknown 2016 - 10/25/2016 Valacyclovir HCL 1 po tid x 7 days 21tabs 053.9 Mcdonough 10/28/2012 - 1gm [facility] 2016 Tablets No Active Medications Unknown 10/06/2012 - 10/28/2012 Lovenox 100mg sq bid, Unknown - 100mg/ml Solution start 4 days 07/04/2017 before the procedure and discontinue coumadin, restart with coumadin 12 hours after the procedure Benadryl Allergy 1 q4-6hrs prn Unknown - 25mg 07/04/2017 Tablets Immunizations Description No Information Available Vital Signs Date Vital Result Comment 10/21/2018 2:29pm BP Systolic 108 mmHg BP Diastolic 62 mmHg Heart Rate 82 /min Body Temperature 97.7 F Respiratory Rate 16 /min Height 64 inches 5'4" Weight 164.00 lb BMI (Body Mass Index) 28.1 kg/m2 06/17/2018 11:15am BP Systolic 122 mmHg BP Diastolic 68 mmHg Heart Rate 76 /min Body Temperature 97.9 F Height 63.5 inches 5'3.50" Weight 153.00 lb BMI (Body Mass Index) 26.7 kg/m2 03/05/2018 1:12pm BP Systolic 106 mmHg BP Diastolic 68 mmHg Heart Rate 68 /min Body Temperature 98.1 F Respiratory Rate 16 /min Height 63.5 inches 5'3.50" Weight 153.00 lb BMI (Body Mass Index) 26.7 kg/m2 09/28/2017 11:44am BP Systolic 112 mmHg BP Diastolic 60 mmHg Heart Rate 84 /min Body Temperature 98.0 F Respiratory Rate 16 /min Height 63.5 inches 5'3.50" Weight 156.00 lb BMI (Body Mass Index) 27.2 kg/m2 07/04/2017 9:33am BP Systolic 112 mmHg BP Diastolic 82 mmHg Heart Rate 92 /min Body Temperature 97.5 F Respiratory Rate 16 /min Height 63.5 inches 5'3.50" Weight 146.12 lb BMI (Body Mass Index) 25.5 kg/m2 01/19/2017 9:21am BP Systolic 110 mmHg BP Diastolic 60 mmHg Heart Rate 72 /min Body Temperature 98.1 F Respiratory Rate 16 /min Height 63.5 inches 5'3.50" Weight 152.12 lb BMI (Body Mass Index) 26.5 kg/m2 10/25/2016 1:01pm BP Systolic 120 mmHg BP Diastolic 76 mmHg Heart Rate 96 /min Body Temperature 97.9 F Height 63.5 inches 5'3.50" Weight 148.38 lb BMI (Body Mass Index) 25.9 kg/m2 2016 12:54pm BP Systolic 116 mmHg BP Diastolic 70 mmHg Heart Rate 80 /min Body Temperature 98.5 F Height 63.5 inches 5'3.50" Weight 155.00 lb BMI (Body Mass Index) 27.0 kg/m2 10/28/2012 1:30pm BP Systolic 102 mmHg BP Diastolic 62 mmHg Heart Rate 60 /min Body Temperature 98.3 F Height 64 inches 5'4" Weight 121.00 lb BMI (Body Mass Index) 20.8 kg/m2 10/06/2012 8:05am BP Systolic 104 mmHg BP Diastolic 60 mmHg Heart Rate 75 /min Body Temperature 98.1 F Height 64 inches 5'4" Weight 121.00 lb BMI (Body Mass Index) 20.8 kg/m2 Results Test Date Facility Test Result H/L Range Note Laboratory test 03/05/2018 [facility] Vitamin B-12 626 pg/mL 230- 1050 finding CBC Electronic 03/05/2018 [facility] WBC 6.3 x10^3/UL 4.0-10.0 Fma RBC 5.07 x10^6/UL 3.93-6.00 HGB 13.2 g/dL 12.0-17.0 HCT 38 % 35-50 MCV 74.4 fL Low 80.0-95.0 MCH 26.0 pg 25.6-32.2 MCHC 35.0 g/dL 32.2-36.0 RDW-CV 15.8 % High 11.6-14.4 PLT 329 x10^3/UL 163-400 MPV 10.0 fL 9.4-12.4 Anuj# 4.02 x10^3/UL 1.56-6.13 Lymph# 1.70 x10^3/UL 1.18-3.74 [place]# 0.43 x10^3/UL 0.24-0.82 Eos # 0.1 x10^3/UL 0.0-0.5 Baso # 0.03 x10^3/UL 0.01-0.08 Anuj% 64.3 % 34.0-70.0 Lymph % 27.2 % 20.0-52.0 [place]% 6.9 % 5.0-12.0 Eos% 1.1 % 0.7-7.0 Baso% 0.5 % 0.1-1.2 Comprehensive Metabolic Prof 03/05/2018 [facility] Sodium 141 mEq/L 134-149 Potassium 4.3 mEq/L [...] >60 ml/min/1.73m^ >=60 Laboratory test finding 03/05/2018 [facility] Free T4 1.33 ng/dL 0.75-1.54 TSH 0.68 mIU/L 0.50-6.00 Vitamin D25 24 Low 30-100 Laboratory test finding 06/28/2017 [facility] Rapid Strep Molecular Negative Negative 1 Laboratory test finding 04/12/2017 [facility] Magnesium 2.1 mg/dL N 1.9-2.7 2 C Reactive Protein 68.93 mg/L High < 5.00 3 TSH (Thyroid Stim Horm) 1.08 mcIU/mL N 0.34-5.60 4 Comp Metabolic Panel 04/12/2017 [facility] Sodium 137 mmol/L N 133-145 Chloride 106 mmol/L N 101-111 Co2 Carbon Dioxide 22 mmol/L N 22-32 Glucose 87 mg/dL N 70-100 Blood Urea Nitrogen 10 mg/dL N 6-24 Creatinine 0.55 mg/dL N 0.51-0.95 BUN/Creatinine Ratio 18.2 N 8-20 Calcium 8.7 mg/dL N 8.6-10.3 Total Protein 6.8 g/dL N 6.4-8.9 Albumin 3.4 g/dL N 3.2-5.2 Globulin 3.4 g/dL N 2-4 Albumin/Globulin Ratio 1.0 N 1-3 Total Bilirubin 0.40 mg/dL N 0.2-1.0 Alkaline Phosphatase 96 U/L N 34-104 Alt 14 U/L N 7-52 Egfr Non- 130.7 N >60 Egfr 168.1 N >60 5 Potassium TNP mmol/L N 3.5-5.0 Anion Gap 9 mmol/L N 2-11 Ast TNP U/L N 13-39 Laboratory test 04/12/2017 [facility] Partial Thrombo Time 30.1 seconds N 26.0- 36.3 finding PTT Laboratory test 04/12/2017 [facility] Potassium Redraw 3.7 mmol/L N 3.5-5.0 finding Ast Redraw 14 U/L N 13-39 CBC Auto Diff 04/12/2017 [facility] White Blood Count 13.8 10^3/uL High 3.5- 10.8 Red Blood Count 4.60 10^6/uL N 4.0-5.4 Hemoglobin 10.6 g/dL Low 12.0-16.0 Hematocrit 33 % Low 35-47 Mean Corpuscular Volume 71 fL Low 80-97 6 Mean Corpuscular Hemoglobin 23 pg Low 27-31 Mean Corpuscular HGB Conc 32 g/dL N 31-36 Red Cell Distribution Width 19 % High 10.5-15 Platelet Count 356 10^3/uL N 150-450 Mean Platelet Volume 7 um3 Low 7.4-10.4 Abs Neutrophils 9.9 10^3/uL High 1.5-7.7 Abs Lymphocytes 2.8 10^3/uL N 1.0-4.8 Abs Monocytes 0.8 10^3/uL N 0-0.8 Abs Eosinophils 0.2 10^3/uL N 0-0.6 Abs Basophils 0.1 10^3/uL N 0-0.2 Abs Nucleated RBC 0.01 10^3/uL N Granulocyte % 71.8 % N 38-83 Lymphocyte % 20.6 % Low 25-47 Monocyte % 5.7 % N 1-9 Eosinophil % 1.4 % N 0-6 Basophil % 0.5 % N 0-2 Nucleated Red Blood Cells % 0 N Inr/Protime 04/12/2017 [facility] Inr 1.01 N 0.89-1.11 Laboratory test 04/12/2017 [facility] Lactic Acid 0.7 mmol/L N 0.5-2.0 7 finding Laboratory test 04/03/2017 [facility] Urine Culture And SEE RESULT 8 finding Sensitivities BELOW Comp Metabolic Panel 04/03/2017 [facility] Sodium 134 mmol/L N 133-145 Potassium 3.4 mmol/L Low 3.5-5.0 Chloride 105 mmol/L N 101-111 Co2 Carbon Dioxide 23 mmol/L N 22-32 Anion Gap 6 mmol/L N 2-11 Glucose 89 mg/dL N 70-100 Blood Urea Nitrogen 4 mg/dL Low 6-24 Creatinine 0.48 mg/dL Low 0.51-0.95 BUN/Creatinine Ratio 8.3 N 8-20 Calcium 8.6 mg/dL N 8.6-10.3 Total Protein 6.0 g/dL Low 6.4-8.9 Albumin 3.1 g/dL Low 3.2-5.2 Globulin 2.9 g/dL N 2-4 Albumin/Globulin Ratio 1.1 N 1-3 Total Bilirubin 0.70 mg/dL N 0.2-1.0 Alkaline Phosphatase 125 U/L High 34-104 Alt 7 U/L N 7-52 Ast 13 U/L N 13-39 Egfr Non- 152.9 N >60 Egfr 196.6 N >60 9 Urinalysis Profile 04/03/2017 [facility] Urine White Blood Cell Trace(0-5/hpf) N Absent Urine Red Blood Cell Trace(0-2/hpf) N Absent Urine Bacteria Absent N Absent Urine Squamous Epithelial Cell Present Abnormal Absent Urine Color Yellow N Urine Appearance Clear N Urine Specific [place] 1.000 Low 1.010-1.030 Urine pH 6 N 5-9 Urine Urobilinogen Negative N Negative Urine Ketones Negative N Negative Urine Protein N N Negative Urine Leukocytes Negative N Negative Urine Blood N N Negative * N N Negative Urine Nitrite N N Negative Urine Bilirubin Negative N Negative Urine Glucose N N Negative CBC No Diff 04/03/2017 [facility] White Blood Count 11.5 10^3/uL High 3.5-10.8 Red Blood Count 4.58 10^6/uL N 4.0-5.4 Hemoglobin 10.5 g/dL Low 12.0-16.0 Hematocrit 32 % Low 35-47 Mean Corpuscular Volume 69 fL Low 80-97 Mean Corpuscular Hemoglobin 23 pg Low 27-31 Mean Corpuscular HGB Conc 33 g/dL N 31-36 Red Cell Distribution Width 18 % High 10.5-15 Platelet Count 249 10^3/uL N 150-450 Mean Platelet Volume 8 um3 N 7.4-10.4 Laboratory test finding 02/04/2017 [facility] C Reactive Protein 15.48 mg/L High < 5.00 10 Erythrocyte Sed Rate 73 mm/Hr High 0-14 Type & Screen 02/04/2017 [facility] Patient Blood Type A Positive N Antibody Screen NEGATIVE N Urinalysis Profile 02/04/2017 [facility] Urine Color Yellow N Urine Appearance Clear N Urine Specific [place] 1.024 N 1.010-1.030 Urine pH 7.0 N 5-9 Urine Urobilinogen Negative N Negative Urine Ketones Negative N Negative Urine Protein 1+(30 mg/dL) Abnormal Negative Urine Leukocytes Negative N Negative Urine Blood Negative N Negative Urine Nitrite Negative N Negative Urine Bilirubin Negative N Negative Urine Glucose Negative N Negative Urine White Blood Cell Trace(0-5/hpf) N Absent Urine Red Blood Cell Trace(0-2/hpf) N Absent Urine Bacteria Absent N Absent Urine Squamous Epithelial Cell Present Abnormal Absent Urine Hyaline Casts Present Abnormal Absent CBC No Diff 02/04/2017 [facility] White Blood Count 10.9 10^3/uL High 3.5-10.8 Red Blood Count 4.31 10^6/uL N 4.0-5.4 Hemoglobin 11.0 g/dL Low 12.0-16.0 Hematocrit 33 % Low 35-47 Mean Corpuscular Volume 77 fL Low 80-97 Mean Corpuscular Hemoglobin 26 pg Low 27-31 Mean Corpuscular HGB Conc 33 g/dL N 31-36 Red Cell Distribution Width 17 % High 10.5-15 Platelet Count 305 10^3/uL N 150-450 Mean Platelet Volume 8 um3 N 7.4-10.4 Comp Metabolic Panel 02/04/2017 [facility] Sodium 133 mmol/L N 133-145 Potassium 3.7 mmol/L N 3.5-5.0 Chloride 102 mmol/L N 101-111 Co2 Carbon Dioxide 25 mmol/L N 22-32 Anion Gap 6 mmol/L N 2-11 Glucose 83 mg/dL N 70-100 Blood Urea Nitrogen 7 mg/dL N 6-24 Creatinine 0.55 mg/dL N 0.51-0.95 BUN/Creatinine Ratio 12.7 N 8-20 Calcium 8.8 mg/dL N 8.6-10.3 Total Protein 6.5 g/dL N 6.4-8.9 Albumin 3.4 g/dL N 3.2-5.2 Globulin 3.1 g/dL N 2-4 Albumin/Globulin Ratio 1.1 N 1-3 Total Bilirubin 0.50 mg/dL N 0.2-1.0 Alkaline Phosphatase 73 U/L N 34-104 Alt 7 U/L N 7-52 Ast 14 U/L N 13-39 Egfr Non- 130.7 N >60 Egfr 168.1 N >60 11 Laboratory test finding 02/04/2017 [facility] Lactic Acid 1.3 mmol/L N 0.5-2.0 12 Urinalysis Profile 09/08/2016 [facility] Urine Color [place] N Urine Appearance Cloudy N Urine Specific [place] 1.040 High 1.010-1.030 Urine pH 5.0 N 5-9 Urine Urobilinogen Negative N Negative Urine Ketones 2+ Abnormal Negative Urine Protein 1+(30 mg/dL) Abnormal Negative Urine Leukocytes Trace Abnormal Negative Urine Blood Negative N Negative Urine Nitrite Negative N Negative Urine Bilirubin 1+ Abnormal Negative Urine Glucose Negative N Negative Urine White Blood Cell Trace(0-5/hpf) N Absent Urine Red Blood Cell Absent N Absent Urine Bacteria Absent N Absent Urine Squamous Epithelial Cell Present Abnormal Absent Laboratory test 09/08/2016 [facility] HCG 928798.00 mIU/mL N 13 finding CBC Auto Diff 09/08/2016 [facility] White Blood Count 12.8 10^3/uL High 3.5- 10.8 Red Blood Count 4.57 10^6/uL N 4.0-5.4 Hemoglobin 12.0 g/dL N 12.0-16.0 Hematocrit 35 % N 35-47 Mean Corpuscular Volume 77 fL Low 80-97 Mean Corpuscular Hemoglobin 26 pg Low 27-31 Mean Corpuscular HGB Conc 34 g/dL N 31-36 Red Cell Distribution Width 17 % High 10.5-15 Platelet Count 297 10^3/uL N 150-450 Mean Platelet Volume 8 um3 N 7.4-10.4 Abs Neutrophils 9.8 10^3/uL High 1.5-7.7 Abs Lymphocytes 1.7 10^3/uL N 1.0-4.8 Abs Monocytes 1.1 10^3/uL High 0-0.8 Abs Eosinophils 0.1 10^3/uL N 0-0.6 Abs Basophils 0.1 10^3/uL N 0-0.2 Abs Nucleated RBC 0.01 10^3/uL N Granulocyte % 76.7 % N 38-83 Lymphocyte % 13.5 % Low 25-47 Monocyte % 8.2 % N 1-9 Eosinophil % 0.9 % N 0-6 Basophil % 0.7 % N 0-2 Nucleated Red Blood Cells % 0.1 N Laboratory test finding 09/08/2016 [facility] Partial Thrombo Time 31.8 seconds N 26.0-36.3 PTT Urine Culture And Sensitivities SEE RESULT BELOW 14 Inr/Protime 09/08/2016 [facility] Inr 1.14 High 0.89-1.11 Comp Metabolic Panel 09/08/2016 [facility] Sodium 134 mmol/L N 133-145 Potassium 3.2 mmol/L Low 3.5-5.0 Chloride 101 mmol/L N 101-111 Co2 Carbon Dioxide 23 mmol/L N 22-32 Anion Gap 10 mmol/L N 2-11 Glucose 89 mg/dL N 70-100 Blood Urea Nitrogen 7 mg/dL N 6-24 Creatinine 0.44 mg/dL Low 0.51-0.95 BUN/Creatinine Ratio 15.9 N 8-20 Calcium 9.2 mg/dL N 8.6-10.3 Total Protein 6.9 g/dL N 6.4-8.9 Albumin 3.6 g/dL N 3.2-5.2 Globulin 3.3 g/dL N 2-4 Albumin/Globulin Ratio 1.1 N 1-3 Total Bilirubin 0.70 mg/dL N 0.2-1.0 Alkaline Phosphatase 58 U/L N 34-104 Alt 9 U/L N 7-52 Ast 17 U/L N 13-39 Egfr Non- 169.1 N >60 Egfr 217.4 N >60 15 Laboratory test 09/04/2016 [facility] Urine Culture And SEE RESULT 16 finding Sensitivities BELOW CBC Auto Diff 09/04/2016 [facility] White Blood Count 15.5 10^3/uL High 3.5- 10.8 Red Blood Count 5.26 10^6/uL N 4.0-5.4 Hemoglobin 14.0 g/dL N 12.0-16.0 Hematocrit 41 % N 35-47 Mean Corpuscular Volume 77 fL Low 80-97 Mean Corpuscular Hemoglobin 27 pg N 27-31 Mean Corpuscular HGB Conc 34 g/dL N 31-36 Red Cell Distribution Width 17 % High 10.5-15 Platelet Count 302 10^3/uL N 150-450 Mean Platelet Volume 8 um3 N 7.4-10.4 Abs Neutrophils 12.5 10^3/uL High 1.5-7.7 Abs Lymphocytes 1.6 10^3/uL N 1.0-4.8 Abs Monocytes 1.1 10^3/uL High 0-0.8 Abs Eosinophils 0.1 10^3/uL N 0-0.6 Abs Basophils 0.2 10^3/uL N 0-0.2 Abs Nucleated RBC 0.01 10^3/uL N Granulocyte % 80.8 % N 38-83 Lymphocyte % 10.1 % Low 25-47 Monocyte % 7.0 % N 1-9 Eosinophil % 0.8 % N 0-6 Basophil % 1.3 % N 0-2 Nucleated Red Blood Cells % 0 N Type & Screen 09/04/2016 [facility] Patient Blood Type A Positive N Antibody Screen NEGATIVE N Comp Metabolic Panel 09/04/2016 [facility] Sodium 135 mmol/L N 133-145 Potassium 3.7 mmol/L N 3.5-5.0 Chloride 102 mmol/L N 101-111 Co2 Carbon Dioxide 23 mmol/L N 22-32 Anion Gap 10 mmol/L N 2-11 Glucose 111 mg/dL High 70-100 Blood Urea Nitrogen 7 mg/dL N 6-24 Creatinine 0.54 mg/dL N 0.51-0.95 BUN/Creatinine Ratio 13.0 N 8-20 Calcium 9.5 mg/dL N 8.6-10.3 Total Protein 6.9 g/dL N 6.4-8.9 Albumin 4.0 g/dL N 3.2-5.2 Globulin 2.9 g/dL N 2-4 Albumin/Globulin Ratio 1.4 N 1-3 Total Bilirubin 0.80 mg/dL N 0.2-1.0 Alkaline Phosphatase 57 U/L N 34-104 Alt 9 U/L N 7-52 Ast 16 U/L N 13-39 Egfr Non- 133.5 N >60 Egfr 171.7 N >60 17 Laboratory test finding 09/04/2016 [facility] Lipase 38 U/L N 11.0-82.0 HCG 783905.00 mIU/mL N 18 Urinalysis Profile 09/04/2016 [facility] Urine Color Yellow N Urine Appearance Cloudy N Urine Specific [place] 1.024 N 1.010-1.030 Urine pH 5.0 N 5-9 Urine Urobilinogen Negative N Negative Urine Ketones 1+ Abnormal Negative Urine Protein Negative N Negative Urine Leukocytes 2+ Abnormal Negative Urine Blood Negative N Negative Urine Nitrite Negative N Negative Urine Bilirubin Negative N Negative Urine Glucose Negative N Negative Urine White Blood Cell 3+(>20/hpf) Abnormal Absent Urine Red Blood Cell Trace(0-2/hpf) N Absent Urine Bacteria Absent N Absent Urine Squamous Epithelial Cell Present Abnormal Absent Laboratory test 08/24/2016 [facility] Point of Care 82 mg/dL N 74-106 19 finding Glucose Age 0108/10/2016 [facility] Age 26-29 [address] [place] [address] (607)- - Diagn See Comment: 20 Adeq See Comment: 21 [email or web address] See Comment: 22 Perfor See Comment: 23 QC Rev See Comment: 24 Comm . Note See Comment: 25 Iglbp See Comment: 26 Reflex See Comment: 27 Laboratory test 2016 [facility] PDF [id number] SEE IMAGE finding [address] [place] [address] (601)- - Laboratory test 2016 [facility] TSH 1.430 0.450- [address] [place] [address] uIU/mL 4.500 [place] [address] (606)- - Thyroxine (T4) Free, Direct, S 1.22 ng/dL 0.82-1.77 Thyroid Antibody & 2016 [facility] Thyroid Peroxidase 8 IU/mL 0-[address] [facility] ([place]) [place] [address] [phone] - Thyroglobulin Antibody <1.0 IU/mL 0.0-0.9 29 Comprehensive 10/06/2012 [facility] Glucose 55 mg/dL Low 70-100 30 Metabolic [address] [place] [address] [phone] BUN 13 mg/dL 4-18 Creatinine, Serum 0.67 mg/dL 0.50-1.10 Sodium 141 mmol/L 136-146 Potassium 4.5 mmol/L 3.5-5.3 Chloride 105 mmol/L 98-110 Carbon Dioxide 28 mmol/L 20-32 Albumin 4.5 g/dL 3.5-4.7 Protein, Total 7.1 g/dL 6.4-8.3 Calcium 9.2 mg/dL 8.4-10.4 Alkaline Phosphatase 77 U/L 10-118 Sgot (Ast) 17 U/L 3-40 SGPT (Alt) 12 U/L 7-50 Bilirubin, Total 0.90 mg/dL 0.30-1.20 CBC 10/06/2012 [facility] WBC 6.8 x10E3/uL 4.3-10.[address] [place] [address] [phone] RBC 5.18 x10E6/uL 3.80-5.30 Hemoglobin 14.1 g/dL 11.8-15.8 Hematocrit 40.7 % 35.0-47.0 MCV 78.6 fl Low 82.0-98.0 MCH 27.2 pg Low 27.5-33.5 MCHC 34.6 g/dL 32.0-36.0 RDW 14.9 % High 11.5-14.5 Platelet Count 309 x10E3/uL 130-400 MPV 10.2 fl 6.5-10.5 Segmented Neutrophils 55.4 % 44.0-74.0 Lymphocytes 34.2 % 15.0-45.0 Monocytes 7.2 % 2.0-13.0 Eosinophils 2.6 % 0.0-6.0 Basophils 0.6 % 0.0-2.0 Neutrophil Absolute 3.8 x10E3/uL 1.4-7.0 Lymphocytes Absolute 2.3 x10E3/uL 1.0-3.4 Monocyte Absolute 0.5 x10E3/uL 0.2-1.0 Eosinophil Absolute 0.2 x10E3/uL 0.0-0.5 Basophil Absolute 0.0 x10E3/uL 0.0-0.2 Egfr (Calculated) 10/06/2012 [facility] Estimated GFR (CALCULATED) [address] [place] [address] [phone] Egfr >60 31 Egfr, -Belgian >60 32 1 Cat Breeder: [id number] 2 Cancelled. Specimen hemolyzed. Unable to perform test requested. Reorder for specimen recollection. BRIE/ED was called for recollect at 2146 on 04/12/17 by [id number] 3 Acute inflammation: >10.00 4 Cancelled. Specimen hemolyzed. Unable to perform test requested. Reorder for specimen recollection. BRIE/ED was called for recollect at 2146 on 04/12/17 by [id number] 5 Because ethnic data is not always [...] Consistent with previous results on 04/08/17. 7 [facility] Severe Sepsis and Septic Shock Management Bundle Measure requires all lactic acids initially measuring >2.0 mmol/L be repeated. 8 SEE RESULT BELOW Name: MARYA CAIN : [address]: Erik Simmons MD Acct: [id number] Unit: [id number] AGE: 31 Location: [facility] Re04/03/17 SEX: F Status: REG REF SPEC: [id number] JASMIN: 04/03/[address]: Erik Simmons MD REQ: [id number] RECD: 04/03/17 STATUS: KISHORE [facility] DR: Kym Sullivan ASSOCIATE DOCTOR _ SOURCE: URINE SPDESC: ORDERED: Urine Culture QUERIES: Urine Source: Clean Catch Procedure Result Reported Site Urine Culture Final 04/04/17- 940 ML No growth of clinically significant organisms * ML - MAIN LAB ([facility]) . END OF REPORT * ML=Testing performed at Main Lab DEPARTMENT OF PATHOLOGY, [address] [place] [address] Kentrell Pack M.D. Director [facility] # [id number] 9 Because ethnic data is not always [...] 5 Kidney failure <15 (or dialysis) 12 [facility] Severe Sepsis and Septic Shock Management Bundle Measure requires all lactic acids initially measuring >2.0 mmol/L be repeated. 13 <5.0 Negative 5.0 - 25.0 Indeterminate (Repeat testing recommended after 72 hours) >25.0 Positive Perimenopausal women can display HCG levels of up to 20 mIU/mL 14 SEE RESULT BELOW Name: MARYA CAIN Ronit : [address]: Taz Andrade MD Acct: [id number] Unit: [id number] AGE: 31 Location: ED Re09/08/16 SEX: F Status: DEP ER SPEC: [id number] JASMIN: 09/08/16-[address]: Kym BURT REQ: [id number] RECD: 09/08/16 STATUS: KISHORE [facility] DR: Kym Sullivan ASSOCIATE DOCTOR Taz Andrade MD _ SOURCE: URINE [facility]: ORDERED: Urine Culture Procedure Result Reported Site Urine Culture Final 09/10/16- 1214 ML No Growth (<1,000 CFU/mL) * ML - MAIN LAB ([facility]) . END OF REPORT * ML=Testing performed at Main Lab DEPARTMENT OF PATHOLOGY, [address] [place] [address] Kentrell Pack M.D. Director [facility] # [id number] 15 Because ethnic data is not always [...] 16 SEE RESULT BELOW Name: MARYA CAIN : [address]: Earle Caceres MD Acct: [id number] Unit: [id number] AGE: 31 Location: ED Re09/04/16 SEX: F Status: DEP ER SPEC: [id number] JASMIN: 09/04/16-2234 [facility] DR: Earle Caceres MD REQ: [id number] RECD: 09/04/16 STATUS: [facility] : Kym Sullivan ASSOCIATE DOCTOR _ SOURCE: URINE [facility]: ORDERED: Urine Culture Procedure Result Reported Site Urine Culture Final 09/06/16- 09 ML No growth of clinically significant organisms * ML - MAIN LAB ([facility]) . END OF REPORT * ML=Testing performed at Main Lab DEPARTMENT OF PATHOLOGY, [address] [place] [address] Kentrell Pack M.D. Director [facility] # [id number] 17 Because ethnic data is not always [...] levels of up to 20 mIU/mL 19 Cat Breeder: WCIHO SIGALA 20 NEGATIVE FOR INTRAEPITHELIAL LESION AND MALIGNANCY. THIS SPECIMEN WAS RESCREENED PART OF OUR RETAIL ACCOUNT EXECUTIVE PROGRAM. 21 Satisfactory for evaluation. No endocervical component is identified. The absence of an endocervical component was confirmed by an additional screening evaluation. 22 Z12.4 23 Vincenzo Goodwin, Dispensing Optician (ASCP) 24 Siva Briones, Dispensing Optician (ASCP) 25 The Pap smear is a [...] may be found at [email or web address].org/professionals/kdoqi. Procedures Date Code Description Status 06/17/2018 45753 Pulse Oximetry Completed 03/05/2018 45224 Brief Emotional/Behav Assessment W/ Scoring Doc Per Completed Standard Inst Encounters Type Date Location Provider Dx Diagnosis Office Visit 06/17/2018 [facility] Office Keya Cruz, J20.9 Acute bronchitis, 11:15a Afnp-C unspecified Office Visit 03/05/2018 [facility] Kym M54.89 Other dorsalgia 1:00p Nate, BRAND ADVISOR F41.9 Anxiety disorder, unspecified Office Visit 09/28/2017 11:45a Main Office Kym Nate, M54.89 Other dorsalgia BRAND ADVISOR M54.16 Radiculopathy, lumbar region Office Visit 07/04/2017 9:30a Main Office Kym Nate, M54.89 Other dorsalgia BRAND ADVISOR M54.16 Radiculopathy, lumbar region Office Visit 01/19/2017 9:20a Main Office Padmini Romero 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 Office Kym 789.09 Pain Abdominal Nate, BRAND ADVISOR Other Spec Site 053.9 Herpes Zoster W/O Complication Office Visit 10/06/2012 8:00a [facility] Office Kym 564.1 Irritable Bowel Nate, BRAND ADVISOR Syndrome Plan of Treatment 10/21/2018 - Padmini Quigley M.D.Z00.00 Encounter for general adult medical examination without abnoComments:You are in excellent general health. I recommend regular physical exams with attention to good nutrition and exercise, eye exams every other year, and dental exams twice yearly. Goals:2 fresh fruits daily3 helpings of fresh green and multicolored vegetablesEat from the whole color spectrum. 40-60 Oz water dailyMOVE YOUR BODY. Bodies were made to be moved. exercise 30 minutes at least 4-5 times weeklyAllComments:Medication Management Patient Understands medications she's taking? Yes No Are there Barriers to Adherence? Yes No Has the patient been asked about herbal supplements and therapies, and OTC meds? Yes No Care Plan1. Patient has been queried about patient's goals/preferences and functional/lifestyle goals at relevant visits. If relevant, describe: na2. Treatment goals asexplained to the patient: above3. Are there barriers to meeting treatment goals? Yes No IfYes, please describe:4. Self- Management goals as described to the patient: Yes No as above. Remember exercise is very important.
--- NOTE | 2018-10-27 23:43 | ED ---
HPI Chest Pain - HPI Summary HPI Summary: Patient is a 33 y/o F presenting to ED with complaints of intermittent, sharp midsternal chest pain for the past two days. Episodes of chest pain are reported to last around ten minutes. She notes that breathing will occasionally aggravate Sx. Patient states that she has been coughing tonight, but otherwise reports no other Sx. Patient is five weeks . She notes Hx of DVT at left leg during previous . Patient has been taking Lovenox 40 mg for the past ten days. Patient is followed by Dr. Joana Rutledge, who advised patient to come to ED for evaluation. Patient also notes that she has been putting compression stocking on her left leg. She requests left leg US as she is "anxious". On triage, pain is rated 4/10. Nothing is noted to aggravate/ alleviate Sx. Home medications and allergies are reviewed. - History of Current Complaint Chief Complaint: EDChestWallPain Hx Obtained From: Patient Hx Last Menstrual Period: 07/02/18 Onset/Duration: Started Days Ago - two days of chest pain, cough for a day, Still Present Timing: Constant, Lasting Days - two days of chest pain, cough for a day Current Severity: Moderate - 4/10 Pain Intensity: 4 Pain Scale Used: 0-10 Numeric - 4/10 Aggravating Factor(s): Other: - breathing Alleviating Factor(s): Nothing Associated Signs and Symptoms: Positive: Chest Pain, Cough - Additional Pertinent History Primary Care Physician: CHAPARRITA - Allergy/Home Medications Allergies/Adverse Reactions: Allergies Allergy/AdvReac Type Severity Reaction Status Date / Time No Known Allergies Allergy Verified 07/15/18 12:04 Home Medications: Home Medications Enoxaparin Sodium 40 mg SUBCUT DAILY 10/27/18 [History Confirmed 10/27/18] PMH/Surg Hx/FS Hx/Imm Hx Endocrine/Hematology History: Reports: Other Endocrine/Hematological Disorders - On blood thinners Denies: Hx Diabetes, Hx Thyroid Disease Cardiovascular History: Reports: Other Cardiovascular Problems/Disorders - LLE blood clots during Denies: Hx Hypertension, Hx Pacemaker/ICD Respiratory History: Denies: Hx Asthma, Hx Chronic Obstructive Pulmonary Disease (COPD) GI History: Denies: Hx Ulcer Sensory History: Denies: Hx Contacts or Glasses, Hx Hearing Aid Opthamlomology History: Denies: Hx Contacts or Glasses Neurological History: Reports: Hx Migraine Denies: Other Neuro Impairments/Disorders Psychiatric History: Denies: Hx Panic Disorder - Cancer History Cancer Type, Location and Year: None reported - Surgical History Surgery Procedure, Year, and Place: left ovary removed 1987 Hx Anesthesia Reactions: No Infectious Disease History: No Infectious Disease History: Denies: Hx Clostridium Difficile, Hx Hepatitis, Hx Human Immunodeficiency Virus (HIV), Hx of Known/Suspected MRSA, Hx Shingles, Hx Tuberculosis, Hx Known/ Suspected VRE, Hx Known/Suspected VRSA, History Other Infectious Disease, Traveled Outside the [place] in Last 30 Days - Family History Known Family History: Positive: Hypertension, Diabetes, Other - [place] - Social History Alcohol Use: None Hx Substance Use: No Substance Use Type: Reports: None Hx Tobacco Use: No Smoking Status (MU): Never Smoked Tobacco Have You Smoked in the Last Year: No Review of Systems Positive: Chest Pain Positive: Cough All Other Systems Reviewed And Are Negative: Yes Physical Exam - Summary Physical Exam Summary: VITAL SIGNS: Reviewed. GENERAL: Patient is a well-developed and nourished female who is lying comfortable in the stretcher. Patient is not in any acute respiratory distress. HEAD AND FACE: No signs of trauma. No ecchymosis, hematomas or skull depressions. No sinus tenderness. EYES: PERRLA, EOMI x 2, No injected conjunctiva, no nystagmus. EARS: Hearing grossly intact. Ear canals and tympanic membranes are within normal limits. MOUTH: Oropharynx within normal limits. NECK: Supple, trachea is midline, no adenopathy, no JVD, no carotid bruit, no c- spine tenderness, neck with full ROM. CHEST: Symmetric, no tenderness at palpation LUNGS: Clear to auscultation bilaterally. No wheezing or crackles. CVS: Regular rate and rhythm, S1 and S2 present, no murmurs or gallops appreciated. ABDOMEN: Soft, non-tender. No signs of distention. No rebound no guarding, and no masses palpated. Bowel sounds are normal. EXTREMITIES: FROM in all major joints, no edema, no cyanosis or clubbing. NEURO: Alert and oriented x 3. No acute neurological deficits. Speech is normal and follows commands. SKIN: Dry and warm Triage Information Reviewed: Yes Vital Signs On Initial Exam: Initial Vitals Temp Pulse Resp BP Pulse Ox 98.5 F 86 16 118/88 97 04/15/19 22:25 10/27/18 22:25 10/27/18 22:25 10/27/18 22:25 10/27/18 22:25 Vital Signs Reviewed: Yes Diagnostics - Vital Signs Vital Signs Temp Pulse Resp BP Pulse Ox 10/27/18 23:00 85 19 121/81 100 10/27/18 22:25 98.5 F 86 16 118/88 97 - Laboratory Result Diagrams: 10/28/18 00:06 10/28/18 00:06 Lab Statement: Any lab studies that have been ordered have been reviewed, and results considered in the medical decision making process. - Ultrasound No standard instances Ultrasound Interpretation Completed By: Radiologist Summary of Ultrasound Findings: LEFT LEG US DOPPLER STUDY IMPRESSION: No left lower extremity deep vein thrombosis. THIS REPORT WAS REVIEWED BY DR. KATE. - EKG 0008 Cardiac Rate: NL - rate of 74 BPM EKG Rhythm: Sinus Rhythm Summary of EKG Findings: EKG showed sinus rhythm with rate of 74 BPM, Normal axis. Normal interval. No ischemic changes. Chest Pain Course/Dx - Course Course Of Treatment: Patient is a 33 y/o F presenting to ED with complaints of intermittent, sharp midsternal chest pain for the past two days. Episodes of chest pain are reported to last around ten minutes. She notes that breathing will occasionally aggravate Sx. Patient states that she has been coughing tonight, but otherwise reports no other Sx. Patient is five weeks . She notes Hx of DVT at left leg during previous . Patient has been taking Lovenox 40 mg for the past ten days. Patient is followed by Dr. Joana Rutledge, who advised patient to come to ED for evaluation. Patient also notes that she has been putting compression stocking on her left leg. She requests left leg US as she is "anxious". Physical exam is unremarkable. LEFT LEG US DOPPLER STUDY IMPRESSION: No left lower extremity deep vein thrombosis. EKG showed sinus rhythm with rate of 74 BPM, Normal axis. Normal interval. No ischemic changes. Labs showed RBC 5.08, MCV 74, MCH 25, RDW 17, absolute monos 0.9, anisocytosis 1 +, microcytosis 1+, glucose 112, trop 0, BNP 17, Beta HCG 6211. Results of labs and tests were discussed, patient will be discharged to home and follow up with PCP and Dr. Rutledge. Patient is agreeable with this. - Diagnoses Provider Diagnoses: Atypical chest pain, Discharge - Sign-Out/Discharge Documenting (check all that apply): Patient Departure - discharge Patient Received Moderate/Deep Sedation with Procedure: No - Discharge Plan Condition: Stable Disposition: HOME Patient Education Materials: Chest Pain (ED), (ED) Referrals: Kym Sullivan NP [Primary Care Provider] - 3 Days Joana Rutledge MD [Medical Doctor] - 3 Days Additional Instructions: PLEASE RETURN TO THE EMERGENCY DEPARTMENT IMMEDIATELY FOR WORSENING OR CONCERNING SYMPTOMS. FOLLOW UP WITH YOUR PRIMARY CARE PHYSICIAN AND DR. RUTLEDGE WITHIN THREE DAYS - Attestation Statements Document Initiated by Scribe: Yes Documenting Scribe: FLACA MURILLO Provider For Whom Scribe is Documenting (Include Credential): EDWARD KATE MD Scribe Attestation: FLACA Castaneda, scribed for EDWARD KATE MD on 10/28/18 at 0218. Status of Scribe Document: Ready
[2018-10-28 00:34] LABS: Albumin 4.2 g/dL (3.2-5.2); Albumin/Globulin Ratio 1.6 (1-3); Calcium 9.3 mg/dL (8.6-10.3); EGFR African American 141.1 (>60); EGFR Non-African American 116.6 (>60); Globulin 2.6 g/dL (2-4); Potassium 3.6 mmol/L (3.5-5.0); Total Bilirubin 0.7 mg/dL (0.2-1.0); Total Protein 6.8 g/dL (6.4-8.9)
[2018-10-28 01:00] LABS: ABS Basophils 0.1 10^3/ul (0-0.2); ABS Eosinophils 0.1 10^3/ul (0-0.6); ABS Lymphocytes 2.8 10^3/ul (1.0-4.8); ABS Monocytes 0.9 10^3/ul (0-0.8); ABS Neutrophils 6.1 10^3/ul (1.5-7.7); ABS Nucleated RBC 0 10^3/ul; Eosinophil % 0.7 %; Hematocrit 37 % (33-41); Hemoglobin 12.7 g/dL (12.0-16.0); Lymphocyte % 28.5 %; Mean Corpuscular HGB Conc 34 g/dL (31-36); Mean Corpuscular Hemoglobin 25 pg (27-31); Mean Corpuscular Volume 74 fL (80-97); Mean Platelet Volume 7.4 fL (7.4-10.4); Nucleated Red Blood Cells % 0; Platelet Count 428 10^3/uL (150-450); Red Blood Count 5.08 10^6 /uL (3.70-4.87); Red Cell Distribution Width 17 % (10.5-15); White Blood Count 9.9 10^3/uL (3.5-10.8)
[2018-10-28 01:01] LABS: Microcytosis 1+
[2018-10-28 02:17] VITALS: BP 107/75
== END 2018-10-28 02:22 | disposition home or self-care (01) ==
LOC: ED 22:21
DX: R07.89 Other chest pain (principal); R05 Cough; Z34.91 Encounter for supervision of normal pregnancy, unspecified, first trimester; Z3A.01 Less than 8 weeks gestation of pregnancy; Z86.718 Personal history of other venous thrombosis and embolism
CPT/HCPCS: 36415; 80053; 83880; 84484; 84702; 85025; 93005; 99282

== ENCOUNTER 2019-06-25 12:15 | Inpatient (IN) | payer OTHER ==
[2019-06-25] MEDS ORDERED: Lactated Ringers 1000 ML Bag* 1,000 ML IV ONE ×2 (12:55→20:17)
[2019-06-25] MEDS ORDERED: Buffered Lidocaine 1% SYRIN* 1 ML/SYRINGE INTRADERM ONE (12:55)
[2019-06-25] MEDS ORDERED: Lactated Ringers 1000 ML Bag* 1,000 ML IV SCH ×3 (13:00→23:45)
[2019-06-25] MEDS ORDERED: Oxytocin in LR* 20 UNITS/1,000 ML BAG IVPB SCH ×2 (13:00→23:45)
--- NOTE | 2019-06-25 13:05 | HP ---
General Information - Reason for Visit elective induction of labor at 39 weeks/ history of DVT on heparin - General Information Maternal Age: 31 Grav: 3 Para: 1 SAB: 1 IEA: 0 Estimated Due Date: 06/23/19 Determined By: LMP Maternal Blood Type and Rh: A Positive - Results this Serology/RPR Result: Non-Reactive Rubella Result: Immune HBsAg Result: Negative HIV Result: Negative GBS Culture Result: Negative Past Medical History Delivery History: See Records Pertinent Past Medical History: See Records Pertinent Past Surgical History: See Records Pertinent Family History: See Records - Antepartal Records Antepartal Records: Reviewed, Complicated by: - anticouagulation Review of Systems Constitutional: Comfortable CV Complaint: No Respiratory: Shortness of Breath: No Gastrointestinal: No Nausea/Vomiting Genitourinary: No Bleeding, No Leaking Fluid Musculoskeletal: No Complaint Neurological: No Headache Movement: Normal Exam Allergies/Adverse Reactions: Allergies No Known Allergies Allergy (Verified 07/15/18 12:04) - Measurements Pre- Weight: 152 lb - Exam Breast: Breast Exam Deferred Extremities: No Edema Heart: Normal Rhythm/Heart Sounds HEENT: No Significant Findings Lungs: Clear Bilaterally Rectal: Rectal Exam Deferred Reflexes: DTR 2+ Targeted Exam Findings Presenting Part: Vertex Membrane Status: Intact EFM Findings - External Monitor Findings Baseline Heart Rate: 140 External Monitor Findings: Accelerations Present, No Pattern of Variable or Late Decelerations, Variability Moderate, Baseline Stable Contractions: Irregular, Mild, < 45 Seconds Assessment/Plan - Assessment 33 at 39 weeks on heparin. last dose yesterday - Plan Plan: Induction, Admit - Anticipate Vaginal Delivery - Dr Mcnair will come in to [facility] and deliver in a little while
[2019-06-25 13:28] LABS: Hematocrit 31 % (35-47); Hemoglobin 10.4 g/dL (12.0-16.0); Mean Corpuscular HGB Conc 33 g/dL (31-36); Mean Corpuscular Hemoglobin 23 pg (27-31); Mean Corpuscular Volume 69 fL (80-97); Platelet Count 296 10^3/uL (150-450); Red Blood Count 4.55 10^6 /uL (3.70-4.87); Red Cell Distribution Width 19 % (10-15)
[2019-06-25 13:50] LABS: Urine Benzodiazepine Screen None Detected (None Detect); Urine Opiates Screen None Detected (None Detect)
[2019-06-25 14:15] LABS: ABS Basophils 0.1 10^3/ul (0-0.2); ABS Eosinophils 0.1 10^3/ul (0-0.6); ABS Lymphocytes 2.2 10^3/ul (1.0-4.8); ABS Monocytes 0.6 10^3/ul (0-0.8); Eosinophil % 0.5 %; Lymphocyte % 21.9 %
[2019-06-25] MEDS ORDERED: OBEPIDURAL* 250 ML EPIDURAL ONE (17:39)
[2019-06-25] MEDS ORDERED: Lidocaine 2% w/ EPI 1:200,000* 20 ML SDV VIAL ONE (18:34)
[2019-06-25] MEDS ORDERED: Sodium Citrate/Citric Acid* 15 ML UDC PO PRN (20:17)
[2019-06-25] MEDS ORDERED: Famotidine TAB* 20 MG PO PRN (20:17)
[2019-06-25] MEDS ORDERED: Phenylephrine 40 MCG/ML SYRINGE IV PUSH PRN ×2 (20:17)
[2019-06-25] MEDS ORDERED: EPHEDrine (Pressors)* 50 MG/ML VIAL IV PUSH PRN ×2 (20:17)
[2019-06-25] MEDS ORDERED: OBEPIDURAL* 250 ML EPIDURAL SCH (21:00)
[2019-06-25] MEDS ORDERED: Witch Hazel PAD* JAR TOPICAL PRN (23:49)
[2019-06-25] MEDS ORDERED: Acetaminophen TAB* 325 MG PO PRN (23:49)
--- NOTE | 2019-06-25 23:49 | PROCNOTE ---
[facility] OB: Delivery Note - Delivery A Date of : 06/25/19 Time of : 23:18 Sex: Female Weight at : 7 lb 10 oz Score 1 Minute: 9 Score 5 Minutes: 9 Gestational Age in Weeks and Days at Delivery: 39 Weeks and 0 Days Delivery Method: Spontaneous Vaginal Labor: Induced Did Patient attempt ?: N/A, No Previous Amniotic Fluid: Clear Estimated Blood Loss: 250 Anesthesia/Analgesia: None, CEI for Labor Delivered By: Mary Mcnair - Nursery Level of Nursery: Regular/Bedside - Perineum Perineal Injury: 2nd Degree Perineal Repair: By Delivering Practioner - Events Delivery Events of Note: Pitocin During Labor - Additional Delivery Notes Additional Delivery Notes: Pt admitted for IOL at 39 wks. Pitocin given and when pt was about 3cm, received epidural. AROM then performed with copious clear fluid. Pt then progressed steadily. At C/C/+1, she began pushing. She pushed for about 20 min to deliver the head in a controlled fashion. Compound hand reduced. Both shoulders and then body delivered easily. Infant placed on mother's abdomen. After about 2 min, cord clamped and cut by father. Cord blood collected. IV pitocin increased. Intact placenta delivered spontaneously. 1% lidocaine injected. Small 2nd degree perineal lac repaired with 3-0 Vicryl rapide, and a small periurethral lac closed with 4-0 Vicryl rapide.
[2019-06-26] MEDS: Ibuprofen TAB* 600 MG PO PRN ×4 (00:17→20:27)
[2019-06-26] MEDS: Dibucaine 1% 28.35 GM TUBE PR PRN ×2 (00:17→11:32)
[2019-06-26] MEDS ORDERED: Lidocaine 1% INJ* 10 MG/ML 30 ML SDV ONE (01:35)
[2019-06-26 08:18] LABS: ABS Basophils 0.1 10^3/ul (0-0.2); ABS Lymphocytes 2.1 10^3/ul (1.0-4.8); ABS Monocytes 1.3 10^3/ul (0-0.8); ABS Neutrophils 11.4 10^3/ul (1.5-7.7); Eosinophil % 0.1 %; Hematocrit 29 % (35-47); Hemoglobin 9.7 g/dL (12.0-16.0); Lymphocyte % 13.8 %; Mean Corpuscular HGB Conc 34 g/dL (31-36); Mean Corpuscular Hemoglobin 23 pg (27-31); Mean Corpuscular Volume 69 fL (80-97); Mean Platelet Volume 7.9 fL (7.4-10.4); Platelet Count 257 10^3/uL (150-450); Red Blood Count 4.18 10^6 /uL (3.70-4.87); Red Cell Distribution Width 19 % (10-15); White Blood Count 14.9 10^3/uL (3.5-10.8)
[2019-06-26] MEDS: Docusate CAP* 100 MG PO SCH ×3 (08:29→20:27)
[2019-06-26] MEDS ORDERED: Simethicone TAB* 80 MG TAB.CHEW PO SCH (08:30)
[2019-06-26] MEDS: Ferrous Gluconate TAB* 324 MG TAB PO SCH (09:45)
[2019-06-26] MEDS ORDERED: Enoxaparin(*) 40 MG/0.4 ML SYR SUBCUT SCH (12:00)
[2019-06-27] MEDS: Ibuprofen TAB* 600 MG PO PRN ×2 (03:38→09:02)
[2019-06-27 08:44] VITALS: BP 116/66
[2019-06-27] MEDS: Docusate CAP* 100 MG PO SCH ×2 (09:02→09:04)
[2019-06-27] MEDS: Ferrous Gluconate TAB* 324 MG TAB PO SCH (09:02)
== END 2019-06-27 10:00 | disposition home or self-care (01) | DRG 560 ==
LOC: MCHOBOUT 12:15 → MCHOB 12:57
PROVIDERS: ADMIT Obstetrics & Gynecology; ATTEND Obstetrics & Gynecology
PROC: 10E0XZZ Delivery of Products of Conception, External Approach (ICD-10-PCS; principal; 2019-06-25)
PROC: 3E033VJ Introduction of Other Hormone into Peripheral Vein, Percutaneous Approach (ICD-10-PCS; 2019-06-25)
PROC: 10907ZC Drainage of Amniotic Fluid, Therapeutic from Products of Conception, Via Natural or Artificial Opening (ICD-10-PCS; 2019-06-25)
PROC: 0KQM0ZZ Repair Perineum Muscle, Open Approach (ICD-10-PCS; 2019-06-25)
PROC: 0UQMXZZ Repair Vulva, External Approach (ICD-10-PCS; 2019-06-25)
DX: O32.6XX0 Maternal care for compound presentation, not applicable or unspecified (principal); Z37.0 Single live birth; O70.1 Second degree perineal laceration during delivery; O71.82 Other specified trauma to perineum and vulva; O90.81 Anemia of the puerperium; D64.9 Anemia, unspecified; Z86.718 Personal history of other venous thrombosis and embolism; Z79.01 Long term (current) use of anticoagulants; Z3A.39 39 weeks gestation of pregnancy
CPT/HCPCS: 36415; 80307; 85025; 85060; 86850; 86900; 86901; A9270-GY; J1650

== ENCOUNTER 2022-09-25 09:56 | Inpatient (IN) ==
[2022-09-25] MEDS ORDERED: Promethazine INJ(RESTRICTED) 25 MG/ML 1 ml VIAL IV PRN (10:43)
[2022-09-25] MEDS ORDERED: Nalbuphine 10 MG/ML 1 ML VIAL IV PRN (10:43)
[2022-09-25] MEDS ORDERED: Lactated Ringers 1000 ml BAG 1,000 ML IV ONE ×2 (10:43→15:39)
[2022-09-25] MEDS ORDERED: Buffered Lidocaine 1% SYRIN 1 ml INTRADERM ONE (10:43)
[2022-09-25] MEDS ORDERED: Oxytocin in LR 20,000 MILLI.UNIT/1,000 ML BAG IV SCH ×2 (10:45→20:15)
[2022-09-25 11:39] LABS: Urine Benzodiazepine Screen None Detected (None Detect); Urine Cannabinoids Screen None Detected (None Detect); Urine Opiates Screen None Detected (None Detect)
[2022-09-25 12:09] LABS: ABS Eosinophils 0.1 10^3/ul (0-0.6); ABS Lymphocytes 1.7 10^3/ul (1.0-4.8); ABS Monocytes 0.6 10^3/ul (0-0.8); ABS Neutrophils 8.2 10^3/ul (1.5-7.7); Eosinophil % 0.9 %; Hematocrit 33 % (35-47); Hemoglobin 11.1 g/dL (12.0-16.0); Lymphocyte % 16.3 %; Mean Corpuscular HGB Conc 33 g/dL (31-36); Mean Corpuscular Hemoglobin 24 pg (27-31); Mean Corpuscular Volume 71 fL (80-97); Mean Platelet Volume 7.9 fL (7.4-10.4); Platelet Count 291 10^3/uL (150-450); Red Blood Count 4.68 10^6 /uL (3.70-4.87); Red Cell Distribution Width 18 % (10-15); White Blood Count 10.6 10^3/uL (3.5-10.8)
[2022-09-25] MEDS ORDERED: Calcium Carb (TUMS) 500 mg CHEW TAB PO PRN (12:54)
[2022-09-25] MEDS: Lactated Ringers 1000 ml BAG 1,000 ML IV SCH ×2 (13:21→15:32)
[2022-09-25] MEDS ORDERED: Lidocaine 1.5% EPI 1:200,000 30 ML SDV ONE (15:00)
[2022-09-25] MEDS ORDERED: OBEPIDURAL (200 ML) 200 ML EPIDURAL ONE (15:02)
[2022-09-25] MEDS ORDERED: Phenylephrine 40 mcg/mL 10mL (400mcg) SYRINGE IV PUSH PRN ×2 (15:39)
[2022-09-25] MEDS ORDERED: Sodium Citrate/Citric Acid LIQ 15 ML UDC PO PRN (15:39)
[2022-09-25] MEDS ORDERED: OBEPIDURAL (200 ML) 200 ML EPIDURAL SCH (16:00)
[2022-09-25] MEDS ORDERED: Lactated Ringers 1000 ml BAG 1,000 ML IV SCH ×2 (16:00→21:00)
[2022-09-25 16:19] LABS: Urine Appearance Clear; Urine Bilirubin Negative (Negative); Urine Blood Negative (Negative); Urine Color Yellow; Urine Glucose Negative (Negative); Urine Ketones Negative (Negative); Urine Nitrite Negative (Negative); Urine Protein Negative (Negative); Urine Specific Gravity 1.009 (1.002-1.030); Urine Urobilinogen Negative (Negative)
[2022-09-25] MEDS ORDERED: Glycerin ADULT 2.4 gm SUPP PR PRN (20:06)
[2022-09-25] MEDS ORDERED: Witch Hazel PAD JAR TOPICAL PRN (20:06)
[2022-09-25] MEDS: Dibucaine 1% OINT 28.35 GM TUBE PR PRN ×2 (20:34→22:04)
[2022-09-26 07:34] LABS: ABS Basophils 0.1 10^3/ul (0-0.2); ABS Eosinophils 0.1 10^3/ul (0-0.6); ABS Lymphocytes 2.2 10^3/ul (1.0-4.8); ABS Neutrophils 8.8 10^3/ul (1.5-7.7); Eosinophil % 0.6 %; Hematocrit 33 % (35-47); Hemoglobin 10.7 g/dL (12.0-16.0); Lymphocyte % 18.3 %; Mean Corpuscular HGB Conc 33 g/dL (31-36); Mean Corpuscular Hemoglobin 24 pg (27-31); Mean Corpuscular Volume 72 fL (80-97); Mean Platelet Volume 7.7 fL (7.4-10.4); Platelet Count 257 10^3/uL (150-450); Red Blood Count 4.54 10^6 /uL (3.70-4.87); Red Cell Distribution Width 18 % (10-15); White Blood Count 12.1 10^3/uL (3.5-10.8)
[2022-09-26] MEDS: Enoxaparin 40 MG/0.4 ML SYR SUBCUT SCH (08:04)
[2022-09-26] MEDS ORDERED: Saline NASAL DROPS 0.65% BTL BOTH NARES PRN (11:29)
[2022-09-27] MEDS ORDERED: Calcium Carb (TUMS) 500 mg CHEW TAB ONE (04:45)
[2022-09-27] MEDS ORDERED: Calcium Carb (TUMS) 500 mg CHEW TAB PO PRN (05:45)
[2022-09-27 08:08] VITALS: BP 103/67
[2022-09-27] MEDS: Enoxaparin 40 MG/0.4 ML SYR SUBCUT SCH (09:06)
== END 2022-09-27 13:00 | disposition home or self-care (01) | DRG 560 ==
LOC: MCHOBOUT 09:56 → MCHOB 10:58
PROVIDERS: ADMIT Obstetrics & Gynecology; ATTEND Obstetrics & Gynecology